=== PATIENT | female | born 1955 | race Caucasian/White ===

== ENCOUNTER 2019-07-19 13:15 | Inpatient (IN) | payer OTHER, SELFPAY ==
[2019-07-19] VITALS (7 sets, daily range): BP systolic 156–198; BP diastolic 78–104; PULSE 92–111; RESP 17–19; TEMP 36.4–37.3; O2SAT 95–98; BMI 37.0
--- NOTE | 2019-07-19 13:37 | ED_ITS ---
Documented by User: DALIA Fields 07/20/19 08:00 HPI - General Adult General: Chief complaint: General Medical Stated complaint: not feeling well Time Seen by Provider: 07/19/19 13:24 Source: patient Mode of arrival: ambulatory Limitations: no limitations History of Present Illness: HPI narrative: Patient is a 63-year-old female who presents to ED today with complaints of lower abdominal and lower back pain over the past 3 to 5 weeks. Patient tells me she has never sought evaluation previously for her discomfort. She states discomfort has gotten to the point where she is having difficulty sleeping as she cannot find a comfortable position. She tells me that she is having intermittent episodes of extreme nausea and vomiting without any distinguishable cause. She also states she is having pain around her left flank area. Patient states her PCP is Dr. Olivares although states she has not seen her in several years. The only medication p atient takes is for her macular degeneration. Patient has not been running fevers. She reports chronic constipation. Denies dysuria, hematuria, change in color or odor. Patient arrives hypertensive at 198/104-patient states her BP is usually normal however patient admits she does not take this regularly. Onset (ago): week(s) Pain Consistency: constant Relieving factors: none Exacerbating factors: none Associated symptoms: Reports nausea and vomiting; Deny chest pain, dyspnea, headache(s), malaise, rash, palpitations or syncope Review of Systems General: Reports: 10 or more systems reviewed and unremarkable except in HPI and below Const: Denies: fever, chills, body aches, fatigue, malaise or night sweats Eyes: Denies: change in vision, blurry vision or photophobia ENMT: Denies: throat pain, enlarged tonsils or painful swallowing Card: Denies: chest pain, palpitations, irregular heart rhythm, edema, swelling of feet/ankles, lightheadedness, syncope, pre-syncope, shortness of breath on exertion or shortness of breath when lying down Resp: Denies: shortness of breath, productive cough, non-productive cough, coughing up blood or chest congestion GI: Reports: abdominal pain, nausea, vomiting, constipation and black tarry stool (reports stools have been darker in color); Denies: change in stool character, blood in stool, white/light colored stool or fatty stool : Reports: flank pain (left); Denies: difficulty urinating, painful urination, urinary frequency, urinary urgency or urinary hesitancy Musc: Reports: back pain; Denies: neck pain, extremity pain, extremity swelling, joint pain or joint swelling Skin/Breast: Denies: rash Neuro: Denies: headache, numbness in extremities, weakness in extremities or changes in sensation PFSH ED PFSH: Medical History (Updated 07/19/19 @ 19:51 by Nuno Vergara MD) Cervical cancer Macular degeneration Surgical History (Updated 07/19/19 @ 17:59 by Carrington Gamble MD) H/O bilateral oophorectomy History of appendectomy History of partial hysterectomy Family History (Updated 07/19/19 @ 18:00 by Carrington Gamble MD) Mother CAD (coronary artery disease) Cancer Lung cancer and uterine cancer Father CAD (coronary artery disease) Social History (Updated 07/19/19 @ 18:01 by Carrington Gamble MD) Smoking and tobacco status: current every day smoker Alcohol intake: never Substance/Drug Use: never Lives independently: Yes Household members: spouse Physical Exam Const: COMMON NORMALS: no apparent distress, oriented x3, no limitations and alert NUTRITIONAL APPEARANCE: obese HENMT: COMMON NORMALS: normocephalic and head/scalp atraumatic HEAD & SCALP: normocephalic and atraumatic Resp: COMMON NORMALS: normal respiratory effort and clear to auscultation b ilaterally AUSCULTATION: clear to auscultation bilaterally Cardio: COMMON NORMALS: regular rate and regular rhythm RATE: regular rate RHYTHM: regular rhythm GI: COMMON NORMALS: normal to inspection, nondistended, normoactive bowel sounds, soft to palpation, no hepatosplenomegaly and no masses PALPATION: Yes soft, Yes tender (very mild throughout lower abdomen) Details: LUQ and Yes no hepatosplenomegaly RECTAL EXAM: heme negative stool : BLADDER/KIDNEY EXAM: Yes CVA tenderness on the left Back/Pelvis: GENERAL BACK: Yes CVA tenderness OTHER: mild tenderness throughout lower back although not easily reproducible Extremity: COMMON NORMALS: normal to inspection Neuro: COMMON NORMALS: oriented x3 SENSORIUM/ORIENTATION: Yes alert Skin: COMMON NORMALS: no rashes or lesions noted GENERAL SKIN EXAM: no rashes or lesions noted Course Consultations: Consultation #1: Dr. Vergara-would be happy to consult on patient and insert bilateral ureter stents if necessary Vital Signs: Vital signs: Vital Signs Temperature 98.2 F 07/20/19 07:55 Pulse Rate 97 07/20/19 07:55 Respiratory Rate 20 H 07/20/19 07:55 Blood Pressure 164/80 07/20/19 07:55 Pulse Oximetry 94 07/20/19 07:55 MDM - General Adult MDM Narrative: Medical decision making narrative: pt is hypertensive, creatinine elevated with no known history of kidney disease (no previous for comparison, GFR is 18, she has bilateral mod hydronephrosis with inflammatory stranding due to her bilateral obstructive uropathy; pt will need to come into the hospital for ureter stenting; spoke to Dr. Vergara who graciously agrees to consult on patient and perform surgery if indicated; Dr. Castillo also evaluated patient and will speak to hospitalist Lab Data: Labs: Lab Results 07/19/19 07/19/19 07/19/19 Range/Units 13:30 13:49 13:49 WBC 12.0 H (4.0-10.0) 10^3/ uL RBC 4.21 (4.1-5.3) 10^6/u L Hgb 11.6 (11.5-15.3) g/dL Hct 37.2 (37.0-47.0) % MCV 88.4 (81-99) fL MCH 27.6 L (28.0-34.0) pg MCHC 31.2 (30.0-36.0) g/dL RDW 12.3 (12.1-15.1) % Plt Count 560 H (130-400) 10^3/c mm MPV 10.2 (7.4-10.4) fL Neut % (Auto) 72.6 % Lymph % (Auto) 17.3 % [place] % (Auto) 8.0 % Eos % (Auto) 1.3 % Baso % (Auto) 0.6 % Neut # (Auto) 8.7 H (1.8-7.7) 10^3/u L Lymph # (Auto) 2.1 (0.8-4.8) 10^3/u L [place] # (Auto) 1.0 H (0.2-0.9) 10^3/u L Eos # (Auto) 0.2 (0.0-0.8) 10^3/u L Baso # (Auto) 0.1 (0.0-0.1) 10^3/u L Nucleated RBC % (a uto) 0 % Nucleated RBCs # 0.0 /100WBC Sodium 139 (136-145) mmol/L Potassium 4.4 (3.5-5.1) mmol/L Chloride 104 (98-107) mmol/L Carbon Dioxide 20 L (22-29) mmol/L Anion Gap 19.4 H (5-19) BUN 22 (8-23) mg/dL Creatinine 2.6 H (0.5-0.9) mg/dL GFR Calculation 18.7 L (90-130) mL/min Glucose 107 (65-115) mg/dL Calculated Osmolal ity 285 (285-295) mOsm/k g Calcium 9.8 (8.5-10.5) mg/dL Total Bilirubin 0.5 (0.15-1.2) mg/dL AST 29 (0-32) U/L ALT 36 H (0-33) U/L Alkaline Phosphata se 427 H (35-105) IU/L Total Protein 8.1 (6.6-8.7) g/dL Albumin 4.1 (3.5-5.2) g/dL Globulin 4.0 (1.3-4.6) g/dL Lipase 25 (13-60) U/L HCG, Qual (Negative) Urine Color Straw (Yellow) Urine Appearance Clear (CLEAR) Urine pH 5 (5-7) Ur Specific Gravit y 1.005 (1.005-1.030) Urine Protein Neg (Negative) Urine Glucose (UA) Norm (Normal) Urine Ketones Negative (Negative) Urine Blood Neg (Negative) Urine Nitrate Negative (Negative) Urine Bilirubin Neg (NEGATIVE) Urine Urobilinogen Norm (Negative) mg/dL Ur Leukocyte Nakia ase Negative (Negative) 07/19/19 Range/Units 13:49 WBC (4.0-10.0) 10^3/ uL RBC (4.1-5.3) 10^6/u L Hgb (11.5-15.3) g/dL Hct (37.0-47.0) % MCV (81-99) fL MCH (28.0-34.0) pg MCHC (30.0-36.0) g/dL RDW (12.1-15.1) % Plt Count (130-400) 10^3/c mm MPV (7.4-10.4) fL Neut % (Auto) % Lymph % (Auto) % [place] % (Auto) % Eos % (Auto) % Baso % (Auto) % Neut # (Auto) (1.8-7.7) 10^3/u L Lymph # (Auto) (0.8-4.8) 10^3/u L [place] # (Auto) (0.2-0.9) 10^3/u L Eos # (Auto) (0.0-0.8) 10^3/u L Baso # (Auto) (0.0-0.1) 10^3/u L Nucleated RBC % (a uto) % Nucleated RBCs # /100WBC Sodium (136-145) mmol/L Potassium (3.5-5.1) mmol/L Chloride (98-107) mmol/L Carbon Dioxide (22-29) mmol/L Anion Gap (5-19) BUN (8-23) mg/dL Creatinine (0.5-0.9) mg/dL GFR Calculation (90-130) mL/min Glucose (65-115) mg/dL Calculated Osmolal ity (285-295) mOsm/k g Calcium (8.5-10.5) mg/dL Total Bilirubin (0.15-1.2) mg/dL AST (0-32) U/L ALT (0-33) U/L Alkaline Phosphata se (35-105) IU/L Total Protein (6.6-8.7) g/dL Albumin (3.5-5.2) g/dL Globulin (1.3-4.6) g/dL Lipase (13-60) U/L HCG, Qual Negative (Negative) Urine Color (Yellow) Urine Appearance (CLEAR) Urine pH (5-7) Ur Specific Gravit y (1.005-1.030) Urine Protein (Negative) Urine Glucose (UA) (Normal) Urine Ketones (Negative) Urine Blood (Negative) Urine Nitrate (Negative) Urine Bilirubin (NEGATIVE) Urine Urobilinogen (Negative) mg/dL Ur Leukocyte Nakia ase (Negative) Imaging Data^: CT Abd/Pel: Radiologist's impression: [facility] [address] [place] [address] CT Scan Report Signed Patient: Emily Bowden Unit #: [id number] : 1955 Age/Sex: 63 / F ADM Date: 07/19/19 Loc: ER Room/Bed: Attending Dr: Ordering Provider/Ordering MD: Miriam Matta Date of Service: 07/19/19 Procedure(s): CT abdomen pelvis wo con [id number] Accession Number(s): [id number] Report Number: [id number] WS: [id number] CT ABDOMEN PELVIS TECHNIQUE: Noncontrast CT of the abdomen and pelvis with coronal and sagittal reformatted images. CLINICAL INFORMATION: L sided abdominal/back pain; nausea/vomiting COMPARISON: None. DLP: 972.[address] scans at [facility] use at least one of these dose optimization techniques: automated exposure control; mA and/or kV adjustment per patient size (includes targeted exams where dose is matched to clinical indication); or iterative reconstruction. FINDINGS: Prior postoperative hysterectomy. Prior appendectomy. Noncontrast liver and gallbladder are normal. Small esophageal hiatal hernia. Noncontrast spleen is normal. Normal noncontrast pancreas. Noncontrast gallbladder is unremarkable. Lung bases are well aerated. Mild rectal constipation. Sigmoid diverticulosis. No evidence of acute diverticulitis. Adrenal glands are normal. Moderate bilateral hydronephrosis with obstructive uropathy. Inflammatory stranding and edema about both kidneys. No obstructing renal or ureteral calculi. Diffuse periaortic inflammation with soft tissue thickening results in obstructive uropathy with involvement of the traversing ureters. Small amount of inflammatory stranding extends just inferior to the aortic bifurcation. No significant lymphadenopathy. No inguinal or pelvic lymphadenopathy. Tiny fat-containing umbilical hernia. No upper abdominal lymphadenopathy. A few slightly prominent but not pathologicall y enlarged periaortic and retroperitoneal lymph nodes. Notified DALIA Fields at 07/19/2019 3:[address]/CT abdomen pelvis wo con [id number] IMPRESSION: 1. Periaortic soft tissue thickening with inflammatory stranding involving the abdominal aorta eccentric to the left. This results in bilateral obstructive uropathy involving the traversing ureters with moderate to advanced bilateral hydronephrosis. 2. Inflammatory stranding and edema about both kidneys with moderate to advanced hydronephrosis. 3. Soft tissue process involving the abdominal aorta with mild periaortic soft tissue thickening. Primary differential consideration is retroperitoneal fibrosis. Lymphoma and aortitis are additional considerations. No aneurysm. 4. A few shoddy periaortic lymph nodes but not pathologically enlarged. 5. Diverticulosis. No evidence of acute diverticulitis. Dictated By: Patrice Bernabe MD Signed By: Patrice Bernabe MD Signed Date/Time: 07/19/19 1544 DD/ 1524 Discharge Plan Discharge Patient Disposition: Admitted As Inpatient Admit Provider: Carringotn Gamble Clinical Impression: Retroperitoneal fibrosis, Acute bilateral obstructive uropathy Condition: Stable Referrals: Gem Olivares MD [Primary Care Provider] - Discharge Date/Time: 07/19/19 17:54 Coding Level of Care Code ED Nib Assembler for Chg Fwd Exam Comprehensive Documented by User: Terrence Castillo DO 07/19/19 17:04 HPI - General Adult General: Chief complaint: General Medical Stated complaint: not feeling well Time Seen by Provider: 07/19/19 13:24 PFSH ED PFSH: Medical History (Updated 07/19/19 @ 19:51 by Nuno Vergara MD) Cervical cancer Macular degeneration Surgical History (Updated 07/19/19 @ 17:59 by Carrington Gamble MD) H/O bilateral oophorectomy History of appendectomy History of partial hysterectomy Family History (Updated 07/19/19 @ 18:00 by Carrington Gamble MD) Mother CAD (coronary artery disease) Cancer Lung cancer and uterine cancer Father CAD (coronary artery disease) Social History (Updated 07/19/19 @ 18:01 by Carrington Gamble MD) Smoking and tobacco status: current every day smoker Alcohol intake: never Substance/Drug Use: never Lives independently: Yes Household members: spouse Course Vital Signs: Vital signs: Vital Signs Temperature 98.2 F 07/20/19 07:55 Pulse Rate 97 07/20/19 07:55 Respiratory Rate 20 H 07/20/19 07:55 Blood Pressure 164/80 07/20/19 07:55 Pulse Oximetry 94 07/20/19 07:55 MDM - General Adult MDM Narrative: Medical decision making narrative: Seen in conjunction with DALIA Fields. Agree with assessment and plan discussed Dr. Person and will admit consult Dr. Vergara Lab Data: Labs: Lab Results 07/19/19 07/19/19 07/19/19 Range/Units 13:30 13:49 13:49 WBC 12.0 H (4.0-10.0) 10^3/ uL RBC 4.21 (4.1-5.3) 10^6/u L Hgb 11.6 (11.5-15.3) g/dL Hct 37.2 (37.0-47.0) % MCV 88.4 (81-99) fL MCH 27.6 L (28.0-34.0) pg MCHC 31.2 (30.0-36.0) g/dL RDW 12.3 (12.1-15.1) % Plt Count 560 H (130-400) 10^3/c mm MPV 10.2 (7.4-10.4) fL Neut % (Auto) 72.6 % Lymph % (Auto) 17.3 % [place] % (Auto) 8.0 % Eos % (Auto) 1.3 % Baso % (Auto) 0.6 % Neut # (Auto) 8.7 H (1.8-7.7) 10^3/u L Lymph # (Auto) 2.1 (0.8-4.8) 10^3/u L [place] # (Auto) 1.0 H (0.2-0.9) 10^3/u L Eos # (Auto) 0.2 (0.0-0.8) 10^3/u L Baso # (Auto) 0.1 (0.0-0.1) 10^3/u L Nucleated RBC % (a uto) 0 % Nucleated RBCs # 0.0 /100WBC Sodium 139 (136-145) mmol/L Potassium 4.4 (3.5-5.1) mmol/L Chloride 104 (98-107) mmol/L Carbon Dioxide 20 L (22-29) mmol/L Anion Gap 19.4 H (5-19) BUN 22 (8-23) mg/dL Creatinine 2.6 H (0.5-0.9) mg/dL GFR Calculation 18.7 L (90-130) mL/min Glucose 107 (65-115) mg/dL Calculated Osmolal ity 285 (285-295) mOsm/k g Calcium 9.8 (8.5-10.5) mg/dL Total Bilirubin 0.5 (0.15-1.2) mg/dL AST 29 (0-32) U/L ALT 36 H (0-33) U/L Alkaline Phosphata se 427 H (35-105) IU/L Total Protein 8.1 (6.6-8.7) g/dL Albumin 4.1 (3.5-5.2) g/dL Globulin 4.0 (1.3-4.6) g/dL Lipase 25 (13-60) U/L HCG, Qual (Negative) Urine Color Straw (Yellow) Urine Appearance Clear (CLEAR) Urine pH 5 (5-7) Ur Specific Gravit y 1.005 (1.005-1.030) Urine Protein Neg (Negative) Urine Glucose (UA) Norm (Normal) Urine Ketones Negative (Negative) Urine Blood Neg (Negative) Urine Nitrate Negative (Negative) Urine Bilirubin Neg (NEGATIVE) Urine Urobilinogen Norm (Negative) mg/dL Ur Leukocyte Nakia ase Negative (Negative) 07/19/19 Range/Units 13:49 WBC (4.0-10.0) 10^3/ uL RBC (4.1-5.3) 10^6/u L Hgb (11.5-15.3) g/dL Hct (37.0-47.0) % MCV (81-99) fL MCH (28.0-34.0) pg MCHC (30.0-36.0) g/dL RDW (12.1-15.1) % Plt Count (130-400) 10^3/c mm MPV (7.4-10.4) fL Neut % (Auto) % Lymph % (Auto) % [place] % (Auto) % Eos % (Auto) % Baso % (Auto) % Neut # (Auto) (1.8-7.7) 10^3/u L Lymph # (Auto) (0.8-4.8) 10^3/u L [place] # (Auto) (0.2-0.9) 10^3/u L Eos # (Auto) (0.0-0.8) 10^3/u L Baso # (Auto) (0.0-0.1) 10^3/u L Nucleated RBC % (a uto) % Nucleated RBCs # /100WBC Sodium (136-145) mmol/L Potassium (3.5-5.1) mmol/L Chloride (98-107) mmol/L Carbon Dioxide (22-29) mmol/L Anion Gap (5-19) BUN (8-23) mg/dL Creatinine (0.5-0.9) mg/dL GFR Calculation (90-130) mL/min Glucose (65-115) mg/dL Calculated Osmolal ity (285-295) mOsm/k g Calcium (8.5-10.5) mg/dL Total Bilirubin (0.15-1.2) mg/dL AST (0-32) U/L ALT (0-33) U/L Alkaline Phosphata se (35-105) IU/L Total Protein (6.6-8.7) g/dL Albumin (3.5-5.2) g/dL Globulin (1.3-4.6) g/dL Lipase (13-60) U/L HCG, Qual Negative (Negative) Urine Color (Yellow) Urine Appearance (CLEAR) Urine pH (5-7) Ur Specific Gravit y (1.005-1.030) Urine Protein (Negative) Urine Glucose (UA) (Normal) Urine Ketones (Negative) Urine Blood (Negative) Urine Nitrate (Negative) Urine Bilirubin (NEGATIVE) Urine Urobilinogen (Negative) mg/dL Ur Leukocyte Nakia ase (Negative) Discharge Plan Discharge Patient Disposition: Admitted As Inpatient Admit Provider: Carrington Gamble Clinical Impression: Retroperitoneal fibrosis, Acute bilateral obstructive uropathy Condition: Stable Referrals: Gem Olivares MD [Primary Care Provider] - Discharge Date/Time: 07/19/19 17:54 Coding Level of Care Code ED Nib Assembler for Chg Fwd Exam Comprehensive
[2019-07-19 13:55] LABS: Add Urine Microscopic? NO
[2019-07-19 13:56] LABS: Basophils # 0.1 10^3/uL (0.0-0.1); Basophils % 0.6 %; Eosinophils # 0.2 10^3/uL (0.0-0.8); Eosinophils % 1.3 %; Hematocrit 37.2 % (37.0-47.0); Hemoglobin 11.6 g/dL (11.5-15.3); Lymphocytes # 2.1 10^3/uL (0.8-4.8); Lymphocytes % 17.3 %; Mean Corpuscular HGB Conc 31.2 g/dL (30.0-36.0); Mean Corpuscular Hemoglobin 27.6 pg (28.0-34.0); Mean Corpuscular Volume 88.4 fL (81-99); Mean Platelet Volume 10.2 fL (7.4-10.4); Neutrophils # 8.7 10^3/uL (1.8-7.7); Neutrophils % 72.6 %; Nucleated Red Blood Cells % 0 %; Platelet Count 560 10^3/cmm (130-400); Red Blood Count 4.21 10^6/uL (4.1-5.3); Red Cell Distribution Width 12.3 % (12.1-15.1)
[2019-07-19 14:01] LABS: Bilirubin Urine Neg (NEGATIVE); Blood Urine Neg (Negative); Glucose Urine UA Norm (Normal); Ketones Urine Negative (Negative); Leukocyte Esterase Urine Negative (Negative); Nitrate Urine Negative (Negative); Protein Urine Neg (Negative); Specific Gravity, Urine 1.005 (1.005-1.030); Urine Appearance Clear (CLEAR); Urine Color Straw (Yellow); Urobilinogen Urine Norm (Negative); pH Urine 5 (5-7)
[2019-07-19 14:06] LABS: HCG, Serum Qual Negative (Negative)
--- NOTE | 2019-07-19 14:06 | CT_ITS ---
WS: [id number] CT ABDOMEN PELVIS TECHNIQUE: Noncontrast CT of the abdomen and pelvis with coronal and sagittal reformatted images. CLINICAL INFORMATION: L sided abdominal/back pain; nausea/vomiting COMPARISON: None. DLP: 972.[address] scans at [facility] use at least one of these dose optimization techniques: automat ed exposure control; mA and/or kV adjustment per patient size (includes targeted exams where dose is matched to clinical indication); or iterative reconstruction. FINDINGS: Prior postoperative hysterectomy. Prior appendectomy. Noncontrast liver and gallbladder are normal. S mall esophageal hiatal hernia. Noncontrast spleen is normal. Normal noncontrast pancreas. Noncontrast gallbladder is unremarkable. Lung bases are well aerated. Mild rectal constipation. Sigmoid diverticulosis. No evidence of acute diverticulitis. Adrenal glands are normal. Moderate bilateral hydronephrosis with obstructive uropathy. Inflammatory stranding and edema about both kidneys. No obstructing renal or ureteral calculi. Diffuse periaortic inflammation with soft tissue thickening results in obstructive uropathy with involvement of the cris ersing ureters. Small amount of inflammatory stranding extends just inferior to the aortic bifurcati on. No significant lymphadenopathy. No inguinal or pelvic lymphadenopathy. Tiny fat-containing umbilical hernia. No upper abdominal lymphadenopathy. A few slightly prominent but not pathologically enlarged periaortic and retroperitoneal lymph nodes. Notified DALIA Fields at 07/19/2019 3:[address]/CT abdomen pelvis wo con [id number] IMPRESSION: 1. Periaortic soft tissue thickening with inflammatory stranding involving the abdominal aorta eccentric to the left. This results in bilateral obstructive u ropathy involving the traversing ureters with moderate to advanced bilateral hy dronephrosis. 2. Inflammatory stranding and edema about both kidneys with moderate to advanc ed hydronephrosis. 3. Soft tissue process involving the abdominal aorta with mild periaortic soft tissue thickening. Primary differential consideration is retroperitoneal fibro sis. Lymphoma and aortitis are additional considerations. No aneurysm. 4. A few shoddy periaortic lymph nodes but not pathologically enlarged. 5. Diverticulosis. No evidence of acute diverticulitis.
[2019-07-19 14:16] LABS: Alanine Aminotransferase 36 U/L (0-33); Albumin Level 4.1 g/dL (3.5-5.2); Alkaline Phosphatase 427 IU/L (35-105); Anion Gap 19.4 (5-19); Aspartate Amino Transferase 29 U/L (0-32); Blood Urea Nitrogen 22 mg/dL (8-23); Calcium 9.8 mg/dL (8.5-10.5); Carbon Dioxide 20 mmol/L (22-29); Chloride 104 mmol/L (98-107); Glomerular Filtration Rate 18.7 mL/min (90-130); Glucose 107 mg/dL (65-115); Lipase 25 U/L (13-60); Osmolality Calculated 285 mOsm/kg (285-295); Potassium 4.4 mmol/L (3.5-5.1); Sodium 139 mmol/L (136-145); Total Bilirubin 0.5 mg/dL (0.15-1.2); Total Protein 8.1 g/dL (6.6-8.7)
[2019-07-19] MEDS: morphine 4 mg/mL SDV 1 mL IVP (15:37)
[2019-07-19] MEDS: ondansetron 2 mg/ML SDV 2 mL 4 MG IVP (15:37)
--- NOTE | 2019-07-19 17:44 | PM.HP ---
Providers/Chief Complaint Admitting Physician: Carrington Gamble MD Primary Care Provider: Gem Olivares MD Chief Complaint: not feeling well History of Present Illness Emily Bowden is a 63 year old female presents to emerge department with gradually worsening bilateral flank pain and lower abdominal pain over the last 4 weeks and especially severe since last night 11 PM. Patient was at times taking naproxen with some relief. She denies any dysuria but reports subjective fevers and chills. She reports frequent episodes of nausea and vomiting for the last several weeks. Reports that pretty much water and Sprite all she can tolerate. She is minimal amount of food as most of the oral intake may end up in nausea and vomiting. She denies shortness of breath or chest pain. Denies any difficulty swallowing. Denies any sore throat or cough. In emergency department CT scan was performed of abdomen and pelvis showing significant bilateral hydronephrosis and inflammatory stranding and edema around kidneys and some retroperitoneal space. Some soft tissue process noted extending to the aorta with potential concern for lymphoma and aortitis. Patient's history is important for cervical cancer for which he underwent partial hysterectomy and then was found to have large ovarian cystic mass and had bilateral oophorectomy. Reports that ovarian cystic mass was benign. Review of Systems Narrative: Except as mentioned above. Const: Denies: fever or chills Eyes: Denies: change in vision (Patient has bilateral macular degeneration with dry on the right and wet on the left) ENMT: Denies: throat pain or change in hearing Card: Denies: chest pain, edema or lightheadedness Resp: Denies: shortness of breath or productive cough GI: Reports: abdominal pain, nausea, vomiting and constipation; Denies: difficulty swallowing, diarrhea, blood in stool or black tarry stool : Denies: difficulty urinating Musc: Denies: joint pain (But does report right hip and back chronic pain which is unchanged.) or joint swelling Skin/Breast: Denies: rash or redness Neuro: Denies: headache or weakness in extremities Psych: Denies: depression or suicidal ideation Endo: Denies: excessive sweating Dread/Lymph: Reports: easy bruising; Denies: easy bleeding or tender lymph nodes All/Imm: Denies: throat swelling Medications/Allergies Home Medications Medication Instructions Recorded Confirmed Last Taken Type PreserVision AREDS-2 1 cap PO DAILY 07/19/19 07/19/19 07/19/19 History Probiotic 1 cap PO DAILY 07/19/19 07/19/19 07/19/19 History ibuprofen 800 mg PO BID PRN 07/19/19 07/19/19 Unknown History ilkynckq-ftc-RH-lycopen-lutein 1 tab PO DAILY 07/19/19 07/19/19 07/19/19 History [[facility] Adults 50 Plus] naproxen sodium 440 mg PO TID PRN 07/19/19 07/19/19 07/19/19 History Allergies Allergy/AdvReac Type Severity Reaction Status Date / Time No Known Allergies Allergy Verified 07/19/19 13:23 PFSH Acute PFSH: Medical History (Updated 07/19/19 @ 18:03 by Carrington Gamble MD) Cervical cancer Macular degeneration Surgical History (Updated 07/19/19 @ 17:59 by Carrington Gamble MD) H/O bilateral oophorectomy History of appendectomy History of partial hysterectomy Family History (Updated 07/19/19 @ 18:00 by Carrington Gamble MD) Mother CAD (coronary artery disease) Cancer Lung cancer and uterine cancer Father CAD (coronary artery disease) Social History (Updated 07/19/19 @ 18:01 by Carrington Gamble MD) Smoking and tobacco status: current every day smoker Alcohol intake: never Substance/Drug Use: never Lives independently: Yes Household members: spouse Vitals/I&O/Wt Last Vital Signs Temp 99.2 F 07/19/19 13:16 Pulse 96 07/19/19 17:00 Resp 18 07/19/19 17:00 BP 170/87 07/19/19 15:50 Pulse Ox 97 07/19/19 17:00 Weight last 48 hrs Weight 86.183 kg Physical Exam Const: COMMON NORMALS: no apparent distress, oriented x3 and alert HENMT: COMMON NORMALS: normocephalic and head/scalp atraumatic HEAD & SCALP: normocephalic and atraumatic Eye: COMMON NORMALS: EOMs intact bilaterally, conjunctivae normal and no scleral icterus CONJUNCTIVA: Yes conjunctivae normal Neck/C-Spine: COMMON NORMALS: no lymphadenopathy and no meningeal signs Lymph: LYMPHATIC: no lymphadenopathy noted Chest: COMMONS NORMALS: palpation of chest normal Resp: COMMON NORMALS: no use of accessory muscles and clear to auscultation bilaterally AUSCULTATION: clear to auscultation bilaterally Cardio: COMMON NORMALS: regular rate, regular rhythm and no murmurs RATE: regular rate RHYTHM: regular rhythm OTHER: No lower extremity edema GI: COMMON NORMALS: soft to palpation PALPATION: Yes soft and Yes tender (Mostly lower abdomen with bilateral CVA tenderness mostly on the left) RECTAL EXAM: deferred : COMMON NORMALS: Yes no CVA tenderness BLADDER/KIDNEY EXAM: Yes no CVA tenderness Back/Pelvis: COMMON NORMALS: no CVA tenderness and thoracic and lumbar spine normal to inspection Extremity: COMMON NORMALS: normal to inspection and normal capillary refill Neuro: COMMON NORMALS: oriented x3 and no focal motor deficits SENSORIUM/ORIENTATION: Yes alert MENINGEAL SIGNS: Yes no meningeal signs Psych: COMMON NORMALS: mental status grossly normal, thought process normal and cooperative THOUGHT PROCESS: normal thought process Skin: COMMON NORMALS: no rashes or lesions noted GENERAL SKIN EXAM: no rashes or lesions noted and ecchymosis (Right arm due to blood pressure cuff.) Data : 07/19/19 13:49 07/19/19 13:49 A&P Assessment and plan (1) High blood pressure: Status: Acute (2) Acute kidney injury: This appears to be postrenal. Patient makes urine Status: Acute (3) Acute bilateral obstructive uropathy: Status: Acute (4) Reactive thrombocytosis: Along with leukocytosis and felt to be reactive secondary to UTI. 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 Vasculitis or malignancy/lymphoma cannot be ruled out. Status: Acute Additional A&P Information PLAN: Awaiting Dr. Vergara's evaluation for ureteral stents placement to relieve hydronephrosis if possible otherwise patient may require percutaneous nephrostomy. Will request radiology to attempt soft tissue mass biopsy mentioned on CT scan. Left message to Dr. Bernabe. Will request initial rheumatological evaluation. Depending on diagnosis patient may require further evaluation by field mechanical meter tester for steroid/immunosuppressant treatment. Check GGT for further evaluation of elevated alk phos. potential metastatic involvement of liver considered as a cause. Will request complete abdominal ultrasound to evaluate for evidence of cholestasis and kidneys/soft tissue if possible. May require MRI. Gentle IV hydration with LR. Discontinue NSAIDs, ibuprofen and naproxen. Start patient on PPI for GI protection. SCDs for DVT prophylaxis for now. Anticoagulation will be avoided due to upcoming procedures. Attestations Medical Necessity Statement*: Patient with retro-peritoneal process resulting in bilateral hydronephrosis and acute kidney injury requires close inpatient monitoring and treatment as well as evaluation. I expect patient will require more than 2 midnights. Coding Level of Care Code Acute Customer Service Security Officer for Chg Fwd Diagnoses High blood pressure I10 Acute kidney injury N17.9 Acute bilateral obstructive uropathy N13.9 Reactive thrombocytosis R79.89 Retroperitoneal fibrosis N13.5
[2019-07-19] MEDS: sennosides 8.6 mg Tablet 17.2 MG PO (19:40)
[2019-07-19] MEDS: lactated ringers 1,000 ML 50 ML IV (19:40)
--- NOTE | 2019-07-19 19:42 | PM.CONSULT ---
Providers/Reason For Consult Consulting Physican/Specialty*: Urology/Vergara Reason for Consult*: Bilateral ureteral obstruction consistent with retroperitoneal fibrosis Attending Physician: Carrington Gamble MD Primary Care Provider: Gem Olivares MD History of Present Illness History of Present Illness Emily Bowden is a 63 year old female who I evaluated for the first time tonight at the request of Dr. Gamble regarding bilateral proximal ureteral obstruction in the presence of changes on CT scan that are consistent with retroperitoneal fibrosis. She complains of approximately 5 weeks of nonspecific abdominal and back pain with nausea and vomiting. Denied changes in her bowel habits other than the nausea and vomiting. Has had a significant decrease in appetite. The back pain was not typical for severe renal colic but reminded her of previous stone episode but to a lesser extent. Presented to the emergency department complaining of increasing symptoms with subjective fever and chills. Lab values showed an elevated creatinine of 2.6 CT scan demonstrated bilateral hydronephrosis with inflammatory change noted around the infrarenal aorta and extending along the retroperitoneum posteriorly. There was no evidence of stones or soft tissue defects within the ureters. There appeared to be a fairly abrupt change in the caliber of the ureters below this inflammatory change. Metabolic work-up is been initiated for possible autoimmune etiologies. A biopsy has also been discussed. I was consulted for further evaluation regarding potential benefit of bilateral ureteral stents as a temporizing palliative measure to relieve ureteral obstruction while the remainder of the work-up and more focused treatments are considered. Review of Systems Const: Reports: fever (No documented fever but subjectively positive), chills, change in appetite, fatigue and malaise Eyes: Denies: change in vision or blurry vision ENMT: Denies: painful swallowing or change in hearing Card: Denies: chest pain, palpitations or leg pain with exertion Resp: Denies: shortness of breath, productive cough or wheezing GI: Reports: abdominal pain, nausea and vomiting; Denies: vomiting blood, constipation or bloating : Reports: flank pain (Not as severe as prior renal colic of related to stone); Denies: difficulty urinating, painful urination, urinary frequency or urinary urgency Musc: Reports: back pain; Denies: neck pain Skin/Breast: Denies: rash, itching or skin tenderness Neuro: Denies: headache, weakness in extremities or confusion Psych: Reports: anxiety (Related to diagnosis and implications only); Denies: depression or memory loss Endo: Denies: excessive urination or excessive thirst Dread/Lymph: Reports: easy bruising; Denies: easy bleeding or enlarged lymph nodes All/Imm: Denies: hives or acute wheezing Meds/Allergies Home Medications and Allergies Home Medications Medication Instructions Recorded Confirmed Type PreserVision AREDS-2 1 cap PO DAILY 07/19/19 07/19/19 History Probiotic 1 cap PO DAILY 07/19/19 07/19/19 History ibuprofen 800 mg PO BID PRN 07/19/19 07/19/19 History mowvgyfw-zka-SZ-lycopen-lutein 1 tab PO DAILY 07/19/19 07/19/19 History [[facility] Adults 50 Plus] naproxen sodium 440 mg PO TID PRN 07/19/19 07/19/19 History Allergies Allergy/AdvReac Type Severity Reaction Status Date / Time No Known Allergies Allergy Verified 07/19/19 13:23 Current Medications Current Medications Generic Name Dose Route Start Last Admin Trade Name Freq PRN Reason Stop Dose Admin Lactated Ringer's 1,000 mls @ 50 mls/hr 07/19/19 18:45 07/19/19 19:40 Lactated Ringers IV 50 mls/hr .Q20H STEPHANIA Administration Senna 17.2 mg 07/19/19 21:00 07/19/19 19:40 Senna Lax PO 17.2 mg BEDTIME STEPHANIA Administration PFSH Acute PFSH: Medical History (Updated 07/19/19 @ 19:51 by Nuno Vergara MD) Cervical cancer Macular degeneration Surgical History (Updated 07/19/19 @ 17:59 by Carrington Gamble MD) H/O bilateral oophorectomy History of appendectomy History of partial hysterectomy Family History (Updated 07/19/19 @ 18:00 by Carrington Gamble MD) Mother CAD (coronary artery disease) Cancer Lung cancer and uterine cancer Father CAD (coronary artery disease) Social History (Updated 07/19/19 @ 18:01 by Carrington Gamble MD) Smoking and tobacco status: current every day smoker Alcohol intake: never Substance/Drug Use: never Lives independently: Yes Household members: spouse Vitals/I&O/Wt Last Vital Signs Temp 98.2 F 04/06/20 18:30 Pulse 96 07/19/19 18:30 Resp 17 07/19/19 18:30 BP 156/78 07/19/19 18:30 Pulse Ox 96 07/19/19 18:30 07/19/19 07/19/19 07/19/19 06:59 14:59 22:59 Output Total 300 / 300 Balance -300 / -300 Weight last 48 hrs Weight 190 lb Physical Exam Const: COMMON NORMALS: no apparent distress, alert and well nourished GENERAL APPEARANCE: well kempt and well developed ORIENTATION/CONSCIOUSNESS: not confused HENMT: COMMON NORMALS: normocephalic and head/scalp atraumatic HEAD & SCALP: normocephalic and atraumatic Eye: COMMON NORMALS: conjunctivae normal and no scleral icterus CONJUNCTIVA: Yes conjunctivae normal Neck/C-Spine: COMMON NORMALS: full ROM GENERAL: Yes normal visual inspection Lymph: LYMPHATIC: no lymphadenopathy noted and no lymphedema noted Resp: COMMON NORMALS: normal respiratory effort and clear to auscultation bilaterally EFFORT & INSPECTION: No labored and No actively coughing AUSCULTATION: clear to auscultation bilaterally Cardio: COMMON NORMALS: regular rate and regular rhythm RATE: regular rate RHYTHM: regular rhythm : BLADDER/KIDNEY EXAM: Yes bladder normal to palpation BIMANUAL EXAM - VAGINA & UTERUS: Yes bladder normal to palpation Extremity: COMMON NORMALS: no clubbing, cyanosis or edema Neuro: COMMON NORMALS: no focal motor deficits SENSORIUM/ORIENTATION: Yes alert Psych: COMMON NORMALS: mental status grossly normal and thought process normal APPEARANCE: Yes grossly normal and Yes well kempt ATTITUDE: Yes calm and Yes engaged THOUGHT PROCESS: normal thought process Skin: COMMON NORMALS: no rashes or lesions noted and no jaundice GENERAL SKIN EXAM: no rashes or lesions noted A&P Assessment and plan (1) Retroperitoneal fibrosis: CT findings suspicious for retroperitoneal fibrosis and patient with bilateral hydronephrosis and proximal ureteral involvement. Status: Acute (2) Acute bilateral obstructive uropathy: Elevated creatinine associated with bilateral ureteral obstruction clinically consistent with retroperitoneal fibrosis PLAN: Cystoscopy, bilateral retrograde ureteral pyelograms, bilateral ureteral stent placement in the morning. Informed consent was obtained after detailed explanation of the rationale for stenting, expectations perioperatively, importance of having stents removed at some point or changed pending outcome of other treatment for retroperitoneal fibrosis. Status: Acute (3) High blood pressure: Status: Acute (4) Acute kidney injury: Status: Acute Coding Level of Care Code Acute Fiction And Nonfiction Prose Writer for Chg Fwd Exam Comprehensive Diagnoses Retroperitoneal fibrosis N13.5 Acute bilateral obstructive uropathy N13.9 High blood pressure I10 Acute kidney injury N17.9
[2019-07-19 20:43] LABS: C Reactive Protein 67.1 mg/L (0.0-4.9); Immunoglobulin IGG 815 mg/dL (700-1600); Lactate Dehydrogenase 243 U/L (135-214)
[2019-07-19 21:36] LABS: Erythrocyte Sedimentation Rate 97 mm/hr (0-15)
[2019-07-19 23:11] LABS: Rapid Plasma Reagin Syphilis Nonreactive (Nonreactive)
[2019-07-19 23:29] LABS: Hepatitis A Antibody IgM. Non-Reactive (Nonreactive); Hepatitis B Core IgM Non-Reactive (Nonreactive); Hepatitis B Surface Antigen. Non-Reactive (Nonreactive); Hepatitis C Virus Antibody Non-Reactive (Nonreactive)
[2019-07-20] VITALS (19 sets, daily range): BP systolic 142–182; BP diastolic 64–95; PULSE 82–112; RESP 16–20; TEMP 36.3–37.6; O2SAT 90–96
--- NOTE | 2019-07-20 | SCC_ITS ---
Procedure Done: 1. Cystoscopy with bilateral retrograde ureteral pyelograms 2. Bilateral ureteral stent placements (8 Telugu by 24 cm double-pigtail without string) 55 seconds of fluoroscopic guidance, for a cumulative dose of 17.46 mGy, was provided to Dr. Vergara by the radiology department. C-arm images of the abdomen were saved for the patient's permanent record. [facility]
[2019-07-20] MEDS: morphine 4 mg/mL SDV 1 mL 2 MG IVP (01:04)
[2019-07-20 01:19] LABS: Procalcitonin 0.09 ng/mL (0-0.5)
[2019-07-20 03:54] LABS: Gamma Glutamyl Transferase 124 U/L (5-36)
[2019-07-20 05:36] LABS: Basophils # 0.1 10^3/uL (0.0-0.1); Basophils % 0.5 %; Eosinophils # 0.2 10^3/uL (0.0-0.8); Eosinophils % 1.8 %; Hematocrit 35.3 % (37.0-47.0); Lymphocytes # 2.1 10^3/uL (0.8-4.8); Lymphocytes % 20.4 %; Mean Corpuscular HGB Conc 31.2 g/dL (30.0-36.0); Mean Corpuscular Hemoglobin 27.6 pg (28.0-34.0); Mean Corpuscular Volume 88.5 fL (81-99); Mean Platelet Volume 10.6 fL (7.4-10.4); Monocytes # 1.1 10^3/uL (0.2-0.9); Monocytes % 10.2 %; Neutrophils # 6.9 10^3/uL (1.8-7.7); Neutrophils % 66.7 %; Nucleated Red Blood Cells % 0 %; Platelet Count 505 10^3/cmm (130-400); Red Blood Count 3.99 10^6/uL (4.1-5.3); Red Cell Distribution Width 12.3 % (12.1-15.1); White Blood Count 10.3 10^3/uL (4.0-10.0)
--- NOTE | 2019-07-20 06:06 | PC.NURSE ---
OFF UNIT Patient taken down stairs for surgery at this time.
[2019-07-20 06:09] LABS: Alanine Aminotransferase 26 U/L (0-33); Albumin Level 3.7 g/dL (3.5-5.2); Alkaline Phosphatase 351 IU/L (35-105); Anion Gap 20.7 (5-19); Aspartate Amino Transferase 19 U/L (0-32); Blood Urea Nitrogen 20 mg/dL (8-23); Calcium 9.7 mg/dL (8.5-10.5); Carbon Dioxide 18 mmol/L (22-29); Chloride 104 mmol/L (98-107); Globulin 3.8 g/dL (1.3-4.6); Glomerular Filtration Rate 17.9 mL/min (90-130); Glucose 103 mg/dL (65-115); Osmolality Calculated 283 mOsm/kg (285-295); Potassium 4.7 mmol/L (3.5-5.1); Sodium 138 mmol/L (136-145); Total Bilirubin 0.5 mg/dL (0.15-1.2); Total Protein 7.5 g/dL (6.6-8.7)
--- NOTE | 2019-07-20 06:20 | P.ANESASSM_ITS ---
Pre-Anesthetic Assessment Pre-Anesthetic Assessment: Height/Weight: Height 1.52 m Weight 86.183 kg Temp Pulse Resp BP Pulse Ox 99.1 F 97 18 176/88 95 07/20/19 06:16 07/20/19 06:16 07/20/19 06:16 07/20/19 06:16 07/20/19 06:16 Proposed Procedure: Operation Date: 07/20/19 07:20 Proposed Procedures p Cystoscopy(Not Applicable) - Nuno Vergara MD s Ureteral Stent Placement(Bilateral) - Nuno Vergara MD Familial anesthetic complications: None Was Beta Rebecca taken within 24 hours: N/A Last intake: yesterday (NPO > 8 hrs) Social: Social History: Tobacco Packs per day: 3 ppd Exam: Pre-Anes Outpt Exam: alert, oriented x 3, clear to auscultation bilaterally and regular rate & rhythm Airway: Cervical ROM: WNL MP: 4 Dentition: Full Pulmonary: Pulmonary: None reported CV/HEM: CV/HEM: None reported : : None reported Comments: retroperitoneal fibrosis w/ b/l ureteral obstruction Hepatic: Hepatic: None reported GI: GI: GERD Metabolic: Metabolic: None reported Musc/skel: Musc/skel: None reported Neuropsych: Neuropsych: None reported Anesthetic Plan: ASA status: 2 Anesthesia: General Risk of > 500 ml blood loss (7ml/kg in children): No Meds/Allergies Current Medications: Current Medications Generic Name Dose Route Start Last Admin Trade Name Freq PRN Reason Stop Dose Admin Lactated Ringer's 1,000 mls @ 50 ml s/hr 07/19/19 18:45 07/19/19 19:40 Lactated Ringers IV 50 mls/hr .Q20H STEPHANIA Administration Morphine Sulfate 2 mg 07/19/19 17:59 07/20/19 01:04 Morphine IVP 2 mg Q4H PRN Administration SEVERE PAIN Senna 17.2 mg 07/19/19 21:00 07/19/19 19:40 Senna Lax PO 17.2 mg BEDTIME STEPHANIA Administration PFSH Anesthesia PFSH: Medical History (Updated 07/19/19 @ 19:51 by Nuno Vergara MD) Cervical cancer Macular degeneration Surgical History (Updated 07/19/19 @ 17:59 by Carrington Gamble MD) H/O bilateral oophorectomy History of appendectomy History of partial hysterectomy Family History (Updated 07/19/19 @ 18:00 by Carrington Gamble MD) Mother CAD (coronary artery disease) Cancer Lung cancer and uterine cancer Father CAD (coronary artery disease) Social History (Updated 07/19/19 @ 18:01 by Carrington Gamble MD) Smoking and tobacco status: current every day smoker Alcohol intake: never Substance/Drug Use: never Lives independently: Yes Household members: spouse Data Anesthesia CBC & Chem 7: 07/19/19 13:49 07/20/19 04:40 Other Labs: Laboratory Results - last 48 hr 07/19/19 07/19/19 07/19/19 13:30 13:49 13:49 WBC 12.0 H RBC 4.21 Hgb 11.6 Hct 37.2 MCV 88.4 MCH 27.6 L MCHC 31.2 RDW 12.3 Plt Count 560 H MPV 10.2 Neut % (Auto) 72.6 Lymph % (Auto) 17.3 [place] % (Auto) 8.0 Eos % (Auto) 1.3 Baso % (Auto) 0.6 Neut # (Auto) 8.7 H Lymph # (Auto) 2.1 [place] # (Auto) 1.0 H Eos # (Auto) 0.2 Baso # (Auto) 0.1 Nucleated RBC % (auto) 0 Nucleated RBCs # 0.0 ESR Sodium 139 Potassium 4.4 Chloride 104 Carbon Dioxide 20 L Anion Gap 19.4 H BUN 22 Creatinine 2.6 H GFR Calculation 18.7 L Glucose 107 Calculated Osmolality 285 Calcium 9.8 Magnesium Total Bilirubin 0.5 GGT AST 29 ALT 36 H Alkaline Phosphatase 427 H Lactate Dehydrogenase C-Reactive Protein Total Protein 8.1 Albumin 4.1 Globulin 4.0 Lipase 25 Procalcitonin HCG, Qual Urine Color Straw Urine Appearance Clear Urine pH 5 Ur Specific [place] 1.005 Urine Protein Neg Urine Glucose (UA) Norm Urine Ketones Negative Urine Blood Neg Urine Nitrate Negative Urine Bilirubin Neg Urine Urobilinogen Norm Ur Leukocyte Esterase Negative IgG RPR Hepatitis A IgM Ab Hep Bs Antigen Hep B Core IgM Ab Hepatitis C Antibody 07/19/19 07/19/19 07/19/19 13:49 19:30 19:30 WBC RBC Hgb Hct MCV MCH MCHC RDW Plt Count MPV Neut % (Auto) Lymph % (Auto) [place] % (Auto) Eos % (Auto) Baso % (Auto) Neut # (Auto) Lymph # (Auto) [place] # (Auto) Eos # (Auto) Baso # (Auto) Nucleated RBC % (auto) Nucleated RBCs # ESR 97 H Sodium Potassium Chloride Carbon Dioxide Anion Gap BUN Creatinine GFR Calculation Glucose Calculated Osmolality Calcium Magnesium Total Bilirubin GGT AST ALT Alkaline Phosphatase Lactate Dehydrogenase 243 H C-Reactive Protein 67.1 H Total Protein Albumin Globulin Lipase Procalcitonin 0.09 HCG, Qual Negative Urine Color Urine Appearance Urine pH Ur Specific [place] Urine Protein Urine Glucose (UA) Urine Ketones Urine Blood Urine Nitrate Urine Bilirubin Urine Urobilinogen Ur Leukocyte Esterase IgG 815 RPR Hepatitis A IgM Ab Hep Bs Antigen Hep B Core IgM Ab Hepatitis C Antibody 07/19/19 07/19/19 07/20/19 19:30 19:30 04:40 WBC RBC Hgb Hct MCV MCH MCHC RDW Plt Count MPV Neut % (Auto) Lymph % (Auto) [place] % (Auto) Eos % (Auto) Baso % (Auto) Neut # (Auto) Lymph # (Auto) [place] # (Auto) Eos # (Auto) Baso # (Auto) Nucleated RBC % (auto) Nucleated RBCs # ESR Sodium 138 Potassium 4.7 Chloride 104 Carbon Dioxide 18 L Anion Gap 20.7 H BUN 20 Creatinine 2.7 H GFR Calculation 17.9 L Glucose 103 Calculated Osmolality 283 L Calcium 9.7 Magnesium 2.0 Total Bilirubin 0.5 GGT 124 H AST 19 ALT 26 Alkaline Phosphatase 351 H Lactate Dehydrogenase C-Reactive Protein Total Protein 7.5 Albumin 3.7 Globulin 3.8 Lipase Procalcitonin HCG, Qual Urine Color Urine Appearance Urine pH Ur Specific [place] Urine Protein Urine Glucose (UA) Urine Ketones Urine Blood Urine Nitrate Urine Bilirubin Urine Urobilinogen Ur Leukocyte Esterase IgG RPR Nonreactive Hepatitis A IgM Ab Non-reactive Hep Bs Antigen Non-reactive Hep B Core IgM Ab Non-reactive Hepatitis C Antibody Non-reactive Micro: Microbiology 07/19/19 19:49 Blood Culture - Preliminary Blood SPECIMEN COLLECTED 07/19/19 19:30 Blood Culture - Preliminary Blood SPECIMEN COLLECTED Cardiac Studies: No Data to Display
[2019-07-20] MEDS: sodium chloride 0.9% 1,000 ML 30 ML IV (06:32)
--- NOTE | 2019-07-20 07:00 | US_ITS ---
WS: [id number] ULTRASOUND ABDOMEN CLINICAL INFORMATION: Elevated alk phos, acute kidney injury COMPARISON: CT abdomen pelvis July 19, 2019 FINDINGS: Liver Size: Normal. Craniocaudal length: 13.0 cm. Echogenicity: Normal. Surface nodularity: None. Mass (size and location): None. Bile ducts Intrahepatic ducts: Normal. Common bile duct diameter: 0.6 cm. Gallbladder Normal. Gallstones: None. Gallbladder sludge: None. Gallbladder wall thickening: None. Pericholecystic fluid: None. Sonographic Catherine sign: Absent. Pancreas Not well visualized Spleen Splenomegaly: None. Craniocaudal length: 13.2 cm. Right kidney with mild right hydronephrosis. Interval placement of double-J ureteral stent Size: 12.5 cm x 5.7 cm x 5.6 cm Left kidney demonstrates mild hydronephrosis. Interval placement of double-J ureteral stent. Size: 11.9 cm x 7.5 cm x 6.2 cm. Abdominal aorta and IVC Visualized portions are normal. Ascites: None. Normal bladder US/US abdomen complete* [id number] IMPRESSION: 1. Liver and gallbladder are normal. Normal common bile duct. 2. Improved bilateral hydronephrosis with interval placement of double-J urete ral stents. 3. Normal bladder
--- NOTE | 2019-07-20 07:07 | PM.OP ---
Operative Report Date of procedure: July 20, 2019 Pre-op Diagnosis: Retroperitoneal fibrosis with bilateral ureteral obstruction Post-op diagnosis: same Procedure Done: 1. Cystoscopy with bilateral retrograde ureteral pyelograms 2. Bilateral ureteral stent placements (8 Canadian by 24 cm double-pigtail without string) Pathology: none sent Surgeon: Jai Anesthesia: General Estimated blood loss: Minimal Complications: None Findings: Normal course and caliber of the ureter to the mid- proximal ureteral level for a distance of approximately 3 inches where there was a demarcation consistent with an extrinsic narrowing and corresponding to CT scan findings. Condition: stable Disposition: PACU Brief History: Mrs. Padilla is a very pleasant 63-year-old white female who I evaluated for the first time last night at the request of the hospitalist service for renal failure related to bilateral ureteral obstruction consistent with retroperitoneal fibrosis based on radiographic/CT scan findings. Preceding symptoms developing over approximately 5-week. Including back pain, vague abdominal pain, nausea and vomiting. Creatinine was elevated. CT scan showed bilateral hydroureteronephrosis to the level of the proximal ureter. At that point and extending distally there were findings of inflammatory changes in the retroperitoneum consistent with retroperitoneal fibrosis. The work-up for the cause is undergoing but I was requested evaluation for possible ureteral stents to relieve obstruction during that work-up process. She is taken to the operating room urgently for bilateral ureteral stent placement. Procedure: After urgent evaluation examination and obtaining of informed consent she was taken to the operating suite on 07/20/2019 where general anesthesia was administered without difficulty after appropriate timeout was performed, SCDs confirmed to be functioning, preoperative antibiotics administered, beta-valentina protocol confirmed. Prepped and draped in the usual sterile fashion in dorsolithotomy position pain careful attention to avoiding pressure points. 21 Canadian cystoscope with 30 degree lens was introduced into the urethral meatus and advanced into the bladder under videoscopy. Bladder was systematically examined without significant pathologic findings. An 8 Canadian cone-tipped catheter was utilized for bilateral retrograde ureteral pyelograms with findings as below: Distal and mid ureters look normal. There was some narrowing in the more proximal ureters consistent with a area of obstruction on CT scan. No other filling defects were identified. The pyelocalyceal systems were dilated Flexible tip guidewire was advanced up the left ureter up into the renal pelvis area and a 8 Canadian by 24 cm double-pigtail stent was advanced over the guidewire through the cystoscope into appropriate position as confirmed via fluoroscopy and cystoscopy. Same procedure was performed on the other side. Stents were confirmed to be functioning, bladder drained, procedure completed. Tolerated the procedure well without complications and was awakened in the operating room and returned to the care of room in stable condition. PLANS: 1. Maintain ureteral stents through completion of work-up. May require long-term indwelling stents, modification to percutaneous nephrostomy, open surgical treatment including intraperitoneal position of the ureters etc. 2. Follow-up to be determined
--- NOTE | 2019-07-20 07:10 | SC_ITS ---
WS: [id number] INTRAOPERATIVE TECHNIQUE: 5 Spot fluoroscopic images for intraoperative purposes. FLUOROSCOPY TIME: 55 seconds CLINICAL INFORMATION: CYSTO RGP COMPARISON: None. FINDINGS: Bilateral double-J stent placement with high-grade narrowing and medial tethering of the ureters. SC/C-arm FL for Urology IMPRESSION: Images obtained for intraoperative purposes.
--- NOTE | 2019-07-20 08:35 | SUR.PHASEI ---
0804 pt aweke alert wants to get up to BR pt feels need to have a BM. resport called pt stable , vss pt to floor per cart 0810 PT ASSISTED UP TOBR, PT ALERT TALKATIVE WITH STAFF,
[2019-07-20 11:05] LABS: Carcinoembryonic Antigen 0.9 ng/mL (0.0-4.7)
[2019-07-20 11:09] LABS: CA 125 10.2 U/mL (0-35); Cancer Antigen 19 9 171.1 U/mL (0-35)
--- NOTE | 2019-07-20 11:26 | P.PN_ITS ---
Subjective Subjective: Interval history: Patient had placement of stents this morning and tolerated procedure well. Discussed with Dr. Bernabe and after evaluation he is unable to perform biopsy. Discussed case with Dr. Del Cid who will see patient on outpatient basis to consider PET CT and also request cancer markers to be ordered and this will be done. Abdominal pain improved. Denies shortness of breath or chest pain. Vitals/I&O/Wt Last Vital Signs Temp 98 F 07/20/19 08:00 Pulse 106 H 07/20/19 08:00 Resp 17 07/20/19 08:00 BP 161/83 07/20/19 08:00 Pulse Ox 90 07/20/19 08:00 07/19/19 07/20/19 07/20/19 22:59 06:59 14:59 Intake Total 545 / 545 0 / 0 Output Total 600 / 600 650 / 1250 900 / 900 Balance -600 / -600 -105 / -705 -900 / -900 Weight last 48 hrs Weight 86.183 kg Physical Exam Const: COMMON NORMALS: no apparent distress and oriented x3 Resp: COMMON NORMALS: normal respiratory effort and clear to auscultation bilaterally AUSCULTATION: clear to auscultation bilaterally Cardio: COMMON NORMALS: regular rate, regular rhythm and S2 normal heart sound RATE: regular rate RHYTHM: regular rhythm HEART SOUNDS: S2 normal OTHER: No lower extremity edema GI: COMMON NORMALS: normal to inspection, nondistended, normoactive bowel sounds, soft to palpation and non-tender PALPATION: Yes soft Neuro: COMMON NORMALS: oriented x3 and no focal motor deficits Data : 07/21/19 04:07 07/21/19 04:07 Micro: Microbiology 07/19/19 19:49 Blood Culture - Preliminary Blood SPECIMEN COLLECTED 07/19/19 19:30 Blood Culture - Preliminary Blood SPECIMEN COLLECTED A&P Assessment and plan (1) High blood pressure: Status: Acute (2) Acute kidney injury: This appears to be postrenal. Patient makes urine Status: Acute (3) Acute bilateral obstructive uropathy: Status: Acute (4) Reactive thrombocytosis: Along with leukocytosis and felt to be reactive secondary to UTI. Status: Acute (5) Retroperitoneal fibrosis: This could be analgesic induced versus idiopathic. Vasculitis or malignancy/lymphoma cannot be ruled out. Status: Acute Additional A&P Information PLAN: Continue current monitoring and treatment. Do not see any need for antibiotics at this point. Discussed case with Dr. Tripathi who will see patient shortly after discharge for further monitoring and treatment. Outpatient follow-up with Dr. Del Cid also be arranged. Continue IV fluids but will increase to 100 mL/h for a day. Hopefully patient's kidney function improves. Attestations Medical Necessity Statement*: Patient with acute kidney injury and retroperitoneal fibrosis requires close inpatient monitoring and treatment until deemed safe for discharge. Coding Level of Care Code Acute Remote Sensing Technician for [facility] Fwd Exam Detailed Diagnoses High blood pressure I10 Acute kidney injury N17.9 Acute bilateral obstructive uropathy N13.9 Reactive thrombocytosis R79.89 Retroperitoneal fibrosis N13.5
[2019-07-20 12:17] LABS: Glucose Point of Care 117 mg/dL (70-110)
[2019-07-20] MEDS: Fleet Enema 133 mL Enema PR (12:54)
[2019-07-20] MEDS: lactated ringers 1,000 ML 30 ML IV ×2 (14:04→20:05)
[2019-07-20] MEDS: HYDROcodone-acetaminophen 5-325 mg Tablet 1 TAB PO (14:27)
[2019-07-21 03:00] VITALS: BP 173/89; PULSE 97; RESP 20; TEMP 36.9; O2SAT 95
[2019-07-21 04:53] LABS: Basophils # 0.1 10^3/uL (0.0-0.1); Basophils % 0.4 %; Eosinophils # 0.1 10^3/uL (0.0-0.8); Eosinophils % 0.4 %; Hematocrit 34.3 % (37.0-47.0); Hemoglobin 10.6 g/dL (11.5-15.3); Lymphocytes # 2.5 10^3/uL (0.8-4.8); Lymphocytes % 22.1 %; Mean Corpuscular HGB Conc 30.9 g/dL (30.0-36.0); Mean Corpuscular Hemoglobin 27.2 pg (28.0-34.0); Mean Corpuscular Volume 88.2 fL (81-99); Mean Platelet Volume 10.3 fL (7.4-10.4); Monocytes % 8.8 %; Neutrophils # 7.7 10^3/uL (1.8-7.7); Nucleated Red Blood Cells % 0 %; Platelet Count 533 10^3/cmm (130-400); Red Blood Count 3.89 10^6/uL (4.1-5.3); Red Cell Distribution Width 12.3 % (12.1-15.1); White Blood Count 11.3 10^3/uL (4.0-10.0)
[2019-07-21 04:57] LABS: Alanine Aminotransferase 23 U/L (0-33); Albumin Level 3.7 g/dL (3.5-5.2); Alkaline Phosphatase 356 IU/L (35-105); Anion Gap 18.4 (5-19); Aspartate Amino Transferase 20 U/L (0-32); Blood Urea Nitrogen 16 mg/dL (8-23); Calcium 10.3 mg/dL (8.5-10.5); Carbon Dioxide 22 mmol/L (22-29); Chloride 106 mmol/L (98-107); Globulin 3.7 g/dL (1.3-4.6); Glomerular Filtration Rate 32.8 mL/min (90-130); Glucose 104 mg/dL (65-115); Magnesium 1.8 mg/dL (1.7-2.3); Osmolality Calculated 291 mOsm/kg (285-295); Potassium 4.4 mmol/L (3.5-5.1); Sodium 142 mmol/L (136-145); Total Bilirubin 0.3 mg/dL (0.15-1.2); Total Protein 7.4 g/dL (6.6-8.7)
[2019-07-21 06:32] LABS: PROTEIN, TOTAL 6.9 g/dL (6.1-8.1)
[2019-07-21 07:00] VITALS: BP 153/85; PULSE 93; RESP 17; TEMP 37.1; O2SAT 93
[2019-07-21 08:00] VITALS: BP 153/85; PULSE 93; RESP 17; TEMP 37.1; O2SAT 96
[2019-07-21 08:17] LABS: Glucose Point of Care 159 mg/dL (70-110)
[2019-07-21] MEDS: pantoprazole DR 40 mg Tablet PO (08:18)
[2019-07-21] MEDS: HYDROcodone-acetaminophen 5-325 mg Tablet 1 TAB PO (08:18)
[2019-07-21 08:21] LABS: CA 27.29 100 U/mL (<38)
--- NOTE | 2019-07-21 09:06 | P.DS_ITS ---
Discharge Providers Date of Admission: 07/19/19 17:03 Date of Discharge: July 21, 2019 Attending Provider at Admission: Carrington Gamble MD Attending Provider at Discharge: Carrington Gamble MD Primary Care Provider: Gem Olivares MD Diagnoses at Discharge Discharge Diagnosis (1) High blood pressure: Status: Acute (2) Acute kidney injury: Status: Acute (3) Acute bilateral obstructive uropathy: Status: Acute (4) Reactive thrombocytosis: Status: Acute (5) Retroperitoneal fibrosis: Status: Acute Reason for Visit Reason for Visit: Reason For Visit: not feeling well Hospital Course Discharge Summary: Patient presented with flank and abdominal pain and diagnosed was with appears to be retroperitoneal fibrosis. Malignancy cannot be completely ruled out but felt unlikely. We have attempted biopsy but unfortunately cannot be performed per radiology. Patient's acute kidney injury secondary to extrinsic ureteral obstruction was relieved by placement of bilateral stents by Dr. Vergara and this morning patient reports feeling much better and wants to the home. She urinated well and her creatinine is down to 1.6. She has good oral intake and denies nausea. She continues to have some abdominal pain and flank pains mostly on the left which overall much improved and patient does not want to take opiate medication unless absolutely necessary. Patient will be given Tylenol and 10 tablets of [place] to use as needed. Case was discussed with Dr. Del Cid who will see patient post discharge for further evaluation to make sure malignancy plays no role. PET/CT could possibly be considered. Discussed case with Dr. Tripathi who will see patient for further evaluation and treatment of retroperitoneal fibrosis. Discussed with Dr. Vergara this morning who wants to see patient in 3 months for stent exchange. Discharge Data Data Completed and Pending: Completed Studies During Hospitalization Category Date Time Status CT abdomen pelvis wo con 35030 Urge nt Cat Scan 07/19/19 14:06 Completed US abdomen comple te* [id number] Routine Ultrasound 07/20/19 07:00 Completed Pending at discharge Category Date Time Status MILLIE Profile Rheum atology Routine Lab 07/19/19 19:30 Received Anti-Neutrophil C utoplasmic AB Rout ine Lab 07/19/19 19:30 Received Blood Culture Rou davey Lab 07/19/19 19:49 Results CMV IGG&IGM Panel Stat Lab 07/19/19 13:49 Received Complete Blood Co unt w/Auto AM LABS Lab 07/22/19 04:00 Ordered Comprehensive Met abolic Panel AM LA BS Lab 07/22/19 04:00 Ordered Magnesium AM LABS Lab 07/22/19 04:00 Ordered Miscellaneous Elena t Routine Lab 07/19/19 19:30 Received Total Protein Avani ctrophoresis Routi ne Lab 07/19/19 19:30 Results Labs from last 24 hours 07/21/19 07/21/19 07/21/19 08:11 04:07 04:07 WBC 11.3 H RBC 3.89 L Hgb 10.6 L Hct 34.3 L MCV 88.2 MCH 27.2 L MCHC 30.9 RDW 12.3 Plt Count 533 H MPV 10.3 Neut % (Auto) 68.0 Lymph % (Auto) 22.1 [place] % (Auto) 8.8 Eos % (Auto) 0.4 Baso % (Auto) 0.4 Neut # (Auto) 7.7 Lymph # (Auto) 2.5 [place] # (Auto) 1.0 H Eos # (Auto) 0.1 Baso # (Auto) 0.1 Nucleated RBC % (a uto) 0 Nucleated RBCs # 0.0 Sodium 142 Potassium 4.4 Chloride 106 Carbon Dioxide 22 Anion Gap 18.4 BUN 16 Creatinine 1.6 H GFR Calculation 32.8 L Glucose 104 POC Glucose 159 Calculated Osmolal ity 291 Calcium 10.3 Magnesium 1.8 Total Bilirubin 0.3 AST 20 ALT 23 Alkaline Phosphata se 356 H Total Protein 7.4 Albumin 3.7 Globulin 3.7 Carcinoembryonic A g CA 19-9 Antigen CA 27-29 CA 125 Antigen 07/20/19 07/20/19 07/20/19 08:58 04:48 04:48 WBC RBC Hgb Hct MCV MCH MCHC RDW Plt Count MPV Neut % (Auto) Lymph % (Auto) [place] % (Auto) Eos % (Auto) Baso % (Auto) Neut # (Auto) Lymph # (Auto) [place] # (Auto) Eos # (Auto) Baso # (Auto) Nucleated RBC % (a uto) Nucleated RBCs # Sodium Potassium Chloride Carbon Dioxide Anion Gap BUN Creatinine GFR Calculation Glucose POC Glucose 117 Calculated Osmolal ity Calcium Magnesium Total Bilirubin AST ALT Alkaline Phosphata se Total Protein Albumin Globulin Carcinoembryonic A g 0.9 CA 19-9 Antigen 171.1 H CA 27-29 CA 125 Antigen 10.2 07/20/19 07/19/19 04:40 19:30 WBC RBC Hgb Hct MCV MCH MCHC RDW Plt Count MPV Neut % (Auto) Lymph % (Auto) [place] % (Auto) Eos % (Auto) Baso % (Auto) Neut # (Auto) Lymph # (Auto) [place] # (Auto) Eos # (Auto) Baso # (Auto) Nucleated RBC % (a uto) Nucleated RBCs # Sodium Potassium Chloride Carbon Dioxide Anion Gap BUN Creatinine GFR Calculation Glucose POC Glucose Calculated Osmolal ity Calcium Magnesium Total Bilirubin AST ALT Alkaline Phosphata se Total Protein 6.9 Albumin Globulin Carcinoembryonic A g CA 19-9 Antigen CA 27-29 100 H CA 125 Antigen Vitals: Last Vital Signs Temp 98.8 F 07/21/19 08:00 Pulse 93 07/21/19 08:00 Resp 17 07/21/19 08:00 BP 153/85 07/21/19 08:00 Pulse Ox 96 07/21/19 08:00 Discharge Plan Discharge Patient Disposition: Home, Self-Care Condition: Stable Prescriptions: New hydrocodone-acetaminophen 5-325 mg Tablet 1 tab PO Q8H PRN (Reason: Moderate Pain) Qty: 10 RF: 0 acetaminophen [Tylenol 8 Hour] 650 mg tablet extended release 650 mg PO Q8H PRN (Reason: pain) Qty: 60 RF: 0 Senna Plus 8.6-50 mg capsule 1 tab-cap PO BID 30 Days Qty: 60 RF: 0 amlodipine 5 mg Tablet 5 mg PO DAILY Qty: 30 RF: 0 Continued Century Adults 50 Plus 0.4-300-250 mg-mcg-mcg Tablet 1 tab PO DAILY RF: 0 PreserVision AREDS-2 1 cap PO DAILY RF: 0 Probiotic 1 cap PO DAILY RF: 0 Discontinued naproxen sodium 220 mg Tablet 440 mg PO TID PRN (Reason: Pain) RF: 0 ibuprofen 200 mg Tablet 800 mg PO BID PRN (Reason: Pain) RF: 0 Discharge Orders: Discharge Order (Routine); Ordered 07/21/19 Ordered By: Carrington Gamble Referrals: Gem Olivares MD [Primary Care Provider] - 4-7 days Nuno Vergara MD [Physician] - 3 months Bolivar Tripathi MD [Physician] - 1-3 days Ranjan Del Cid MD [Hospitalist] - 1-3 days Discharge Diet: Regular Discharge Activity: Resume usual activity Activity Restrictions/Additional Instructions: Please call your doctor or present to emergency department if your condition wo rsens or you develop diarrhea, lightheadedness, fatigue or see blood in your stool or black stool. Please avoid NSAIDs and take Tylenol as needed for pain and [place] for severe pain. Please note that senna/Colace may cause abdominal cramping and is prescribed for constipation which you may develop with treatment of [place] which has opioid in it. Please follow-up with Dr. Del Cid and Dr. Tripathi as we have discussed. Please keep blood pressure and heart rate log 3 times daily to present to primary care physician next visit for medication adjustment. Dr. Vergara wants to follow-up with you in 3 months for stent exchange or sooner if stents malfunction and you develop worsening abdominal/flank pain and this will need to be evaluated. Discharge Attestations Time Spent in Discharge Care*: greater than 30 min Quality Metrics Clinical Quality Measures During this hospital stay, did patient experience: None Coding Level of Care Code Acute Window Treatment Installer for [facility] Fwd Diagnoses High blood pressure I10 Acute kidney injury N17.9 Acute bilateral obstructive uropathy N13.9 Reactive thrombocytosis R79.89 Retroperitoneal fibrosis N13.5
[2019-07-21 09:36] VITALS: BP 153/85; PULSE 93; RESP 17; TEMP 37.1; O2SAT 96
[2019-07-21] MEDS: amlodipine 5 mg Tablet PO (10:07)
[2019-07-21 11:00] VITALS: BP 156/80; PULSE 92; RESP 17; TEMP 36.7; O2SAT 97
[2019-07-21 12:25] LABS: ANA SCREEN, IFA NEGATIVE (NEGATIVE); COMPLEMENT, TOTAL (CH50) >60 U/mL (31-60); THYROID PEROXIDASE ANTIBODIES <1 IU/mL (<9)
[2019-07-21 12:51] LABS: CENTROMERE B ANTIBODY <1.0 NEG AI (<1.0 NEG); COMPLEMENT COMPONENT C3C 196 mg/dL (83-193); COMPLEMENT COMPONENT C4C 43 mg/dL (15-57); JO-1 ANTIBODY <1.0 NEG AI (<1.0 NEG); RNP ANTIBODY <1.0 NEG AI (<1.0 NEG); SCL-70 ANTIBODY <1.0 NEG AI (<1.0 NEG); SJOGREN'S ANTIBODY (SS-A) <1.0 NEG AI (<1.0 NEG); SM ANTIBODY <1.0 NEG AI (<1.0 NEG)
[2019-07-21 13:21] LABS: Cytomegalovirus Antibody (IGG) >10.00 U/mL; Cytomegalovirus Antibody (IGM) <30.00 AU/mL
[2019-07-21 16:06] LABS: ALBUMIN 3.6 g/dL (3.8-4.8); ALPHA 1 GLOBULIN 0.6 g/dL (0.2-0.3); ALPHA 2 GLOBULIN 1.2 g/dL (0.5-0.9); BETA 1 GLOBULIN 0.5 g/dL (0.4-0.6); BETA 2 GLOBULIN 0.4 g/dL (0.2-0.5); GAMMA GLOBULIN 0.7 g/dL (0.8-1.7)
[2019-07-23 00:37] LABS: DNA AB (DS) CRITHIDIA,IFA NEGATIVE (NEGATIVE)
[2019-07-26 11:26] LABS: ANCA Interp Negative (Negative)
== END 2019-07-21 11:13 | disposition home or self-care (01) | DRG 661 ==
LOC: ER 17:18 → MEDSURG 17:44
PROVIDERS: Urology; Admitting Provider Internal Medicine; Emergency Provider Physician Assistant; PCP Family Medicine; Visit Provider Internal Medicine
PROC: 0TJB8ZZ Inspection of Bladder, Via Natural or Artificial Opening Endoscopic (ICD-10-PCS; CPT 52000; principal; 2019-07-20 07:00)
PROC: 0T788DZ Dilation of Bilateral Ureters with Intraluminal Device, Via Natural or Artificial Opening Endoscopic (ICD-10-PCS; CPT 50605; 2019-07-20 07:00)
PROC: 0T788DZ Dilation of Bilateral Ureters with Intraluminal Device, Via Natural or Artificial Opening Endoscopic (ICD-10-PCS; CPT 74420; 2019-07-20 07:00)
DX: N13.6 Pyonephrosis (principal); N13.9 Obstructive and reflux uropathy, unspecified; N17.9 Acute kidney failure, unspecified; N39.0 Urinary tract infection, site not specified; D47.3 Essential (hemorrhagic) thrombocythemia; I10 Essential (primary) hypertension; H35.30 Unspecified macular degeneration; Z85.41 Personal history of malignant neoplasm of cervix uteri; F17.210 Nicotine dependence, cigarettes, uncomplicated
CPT/HCPCS: 12345; 36415; 36416; 74176; 76000; 76700; 80053; 80074; 81003; 82378; 82784; 82787; 82962; 82977; 83516; 83615; 83690; 83735; 84145; 84155; 84165; 84703; 85025; 85651; 86140; 86300; 86301; 86304; 86592; 87040; 94760; 96375; 99283; C2625; J1100; J2270; J2405; J2704; J2710; J3010; J3490; J7030

== ENCOUNTER 2019-07-22 13:48 | Outpatient (CLI) | payer OTHER, SELFPAY ==
--- NOTE | 2019-07-22 17:02 | ONC CON_ITS ---
Dr. Del Cid New Patient Note Patient: Emily Bowden Unit #: [id number]: 1955 Dicatated By: Ranjan Del Cid M.D.Date of Visit: Jul 22, 2019 Onc MED New Patient/Consult Referring Physician: Chief Complaint: Retroperitoneal fibrosis. History of Present Illness: This is a 63 year-old woman who was recently found to have CT evidence of retroperitoneal fibrosis. On 07/19/2019 she was admitted to the hospital after presenting to the emergency room with pain in the lower abdomen/lower back which has been getting worse over a period of 3 to [address] abdomen/pelvis showed periaortic soft tissue thickening with inflammatory stranding involving the abdominal aorta eccentric to the left. It was noted to result in bilateral obstructive uropathy involving the traversing ureters with moderate to advanced bilateral hydronephrosis. There were a few slightly prominent but not pathologically enlarged periaortic and retroperitoneal lymph nodes. Her CBC showed mildly elevated white blood cell count at 12,000 with hemoglobin mildly decreased at 11.6 g and platelet count elevated at 560,000. Sed rate was significantly elevated at 97 mm/hour and the CRP was elevated at 67/4.9 mg/L. BUN and creatinine were elevated at 22 and 2.6 mg/dL. The alkaline phosphatase was significantly elevated at 427/105 IU/L with bilirubin normal at 0.5 mg/dL. Urinalysis was unrevealing. The following day she underwent cystoscopy with placement of bilateral ureteral stents. She was discharged the following day with her creatinine down to 1.6 mg/dL. Tumor markers which have been drawn prior to discharge included elevated CA-19-9 at 171 U/mL and elevated CA-27-29 at 100 U/mL. The CEA was normal at 0.9 ng/mL, and the CA-125 was normal at 10.2 U/mL. Her history is significant in that she had previously undergone partial hysterectomy for cervical cancer. That was done prior to 1994 when she was still living in [place]. Sometime later, estimated at 5832-5177, she underwent bilateral oophorectomy, reportedly for an ovarian mass, but she was told it was benign. She had only short-term hormone replacement therapy following the surgery. She indicates that the pain has improved somewhat following placement of ureteral stents. She does complain that she is tired a lot, and she was exhausted after doing housework yesterday. She says she has not been hungry at all. Her weight is down at least 15 pounds. She has not had fever or night sweats, but she did have some chills. She has had a little bit of sore throat. She does not complain of shortness of breath, cough, or chest pain. She had some nausea yesterday. Her acid reflux has been managed adequately with Prilosec. She has had chronic constipation. She has not been aware of any blood in the stool, but she sometimes has dark stools. She has never had a colonoscopy. Bladder function has improved following the stent placement. She has some arthritis in her spine, which is chronic. She does not complain of headache or dizziness. She has no focal neurologic symptoms. Past Medical History: Her medical history includes degenerative disease of the spine, gastroesophageal reflux disease, hypertension, and macular degeneration. Past Surgical History: Her surgical/procedural history includes appendectomy, bilateral oophorectomy, laser surgery on the left eye, and partial hysterectomy for cervical cancer. Medications: Acetaminophen 1 Tablet (of 650 mg) Oral q 8 hours PRN, amLODIPine Besylate 1 Tablet (of 5 mg) Oral daily, century adults 1 Tablet Oral daily, HYDROcodone-Acetaminophen 1 Tablet (of 5-325 mg) Oral q 8 hours PRN, PreserVision AREDS 1 Capsule Oral daily, Probiotic 1 Capsule Oral daily, Sennosides-Docusate Sodium 1 Capsule (of 8.6-50 mg) Oral b.i.d. Allergies: No Known Allergies. Social History: Ms. Bowden is . She has a history of smoking for 18 years, previously in the range of 2 to 3 packs of cigarettes daily. Since this illness she has cut down to 1/2 pack/day or less. She has just occasional alcohol use. Family History: Father in his 60s of heart attack. Mother of lung cancer. She also was in her 60s. A sister in her early 40s with cancer, but the specific type apparently was not determined. Another sister from homicide. Review Of Symptoms: Constitutional - Her energy level is low and she feels very tired. She is able to do some light work but tires very easily. She has a poor appetite. Her weight is down about 15 lbs. No fever. She had recent chills. No hot flashes or night sweats. ECOG score is 1, Eyes - She has bilateral macular degeneration, ENMT - No hearing loss or tinnitus. No sinus congestion/drainage. No mouth sores. No sore throat or difficulty swallowing, Hematologic/Lymphatic - She bruisies easily, Respiratory - No shortness of breath. No cough. No pleuritic pain or hemoptysis, Cardiovascular - No angina pain. No palpitations, Gastrointestinal - She had some nausea yesterday. No heartburn or acid reflux. No diarrhea. She has chronic constipation, at times she goes 2-3 weeks without having a bowel movement. No blood in the stool. She occasionally has dark stools. She has never had a colonoscopy, Genitourinary (F) - No dysuria or hematuria. She has had urinary frequency and nocturia. Bladder function has improved since she has been in the hospital, Musculoskeletal - She has arthritis in her spine, Integumentary - No skin complications, Neurologic - No headache or dizziness. No numbness/paresthesias or other focal neurologic symptoms, Psychiatric - No anxiety or depression. She sometimes has difficulty sleeping. Vital Signs: Performed on Jul 22, 2019 14:13: 5, 35.78 (HIGH), 1.80 sq.m, 60.00 in, 97 %, 101 /min (HIGH), 20 /min, 139/93 mm(hg), 99.5 F (HIGH), and 183.2 lbs (HIGH). Physical Examination: Constitutional - She has somewhat limited mobility, but she otherwise appears to be in good general health, Eyes - Sclerae nonicteric. Conjunctivae clear, ENMT - No lesions noted in the oral cavity, Neck - No mass or thyromegaly, Hematologic/Lymphatic - No cervical or clavicular adenopathy, Respiratory - Lungs are clear with good air movement bilaterally, Cardiovascular - Heart rhythm is regular. There is a I/ systolic murmur. There is no gallop or rub noted, Breasts - There are no breast masses noted. There is no axillary adenopathy, Abdomen - Soft. There is mild tenderness over the lower abdominal area. Liver and spleen are not enlarged. There is no abdominal mass or ascites noted and there is no inguinal adenopathy, Back/Spine - No spine or CVA tenderness noted, Extremities - No edema. Pedal pulses are palpable bilaterally, Integumentary - No rashes. No suspicious skin lesions noted, Neurologic - No focal neurologic deficits noted. Impression: 1. Patient with CT evidence of retroperitoneal fibrosis and associated bilateral hydronephrosis. The underlying cause has not been determined. 2. She does appear to be showing some clinical improvement following placement of bilateral ureteral stents on 07/20/2019. 3. She has a remote history of cervical cancer. 4. She had undergone bilateral oophorectomy somewhere in the range of 4062-5575, reportedly for benign disease. Her other medical illnesses include: 5. GERD. 6. Degenerative disease of the spine. 7. Macular degeneration. Plan: The CT findings and clinical implications were reviewed with the patient. She has evidence of retroperitoneal fibrosis with associated bilateral hydronephrosis. The underlying cause has not been determined. She has significantly elevated inflammatory markers. Several of the tumor markers are also elevated, but that is a nonspecific finding, particularly in the setting of elevated inflammatory markers and altered renal function. However, it is still suspicious for underlying malignancy. The radiologist has already indicated that the area of involvement is not accessible for biopsy. As such, I would like to see we get insurance approval for a PET/CT to further assess the extent of involvement and to determine if there is another site of involvement which would be more accessible for biopsy. Signed By: Ranjan Del Cid M.D. <<Signature on File>>
== END 2019-07-22 13:49 | disposition home or self-care (01) ==
PROVIDERS: PCP Family Medicine; Visit Provider Internal Medicine Medical Oncology
DX: N13.8 Other obstructive and reflux uropathy (principal); N13.39 Other hydronephrosis; R97.8 Other abnormal tumor markers; R70.0 Elevated erythrocyte sedimentation rate; Z85.41 Personal history of malignant neoplasm of cervix uteri; F17.210 Nicotine dependence, cigarettes, uncomplicated; K21.9 Gastro-esophageal reflux disease without esophagitis; M19.90 Unspecified osteoarthritis, unspecified site; H35.30 Unspecified macular degeneration; Z90.722 Acquired absence of ovaries, bilateral; Z96.0 Presence of urogenital implants
CPT/HCPCS: 99205

== ENCOUNTER 2019-07-26 07:23 | Emergency (ER) | payer OTHER, SELFPAY ==
[2019-07-26 07:27] VITALS: BMI 35.7
--- NOTE | 2019-07-26 07:28 | XR_ITS ---
WS: [id number] PORTABLE CHEST HISTORY: cough/congestion COMPARISON: 08/17/2009 Benign granuloma LEFT lower lobe is stable. No pneumonia. No pleural effusion or pneumothorax. Cardiac size: Normal. Mediastinum/Aorta: Normal mediastinum. No osseous abnormality seen. XR/XR chest 1V portable [id number] IMPRESSION: Unremarkable portable chest.
[2019-07-26 07:31] VITALS: BP 135/75; PULSE 135; RESP 20; TEMP 38.9; O2SAT 95
--- NOTE | 2019-07-26 07:38 | ED_ITS ---
Documented by User: DALIA Fields 07/26/19 13:52 HPI - Fever General: Chief Complaint: Fever Stated Complaint: FEVER Time Seen by Provider: 07/26/19 07:28 Source: patient Mode of arrival: wheelchair Limitations: no limitations History of Present Illness: HPI Narrative: Patient is a very nice 63-year-old female who presents to ED today with a main complaint of fevers along with right flank pain. 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 With this she had bilateral ureter obstruction. Dr. Vergara was consulted who placed bilateral ureter stents. There was a concern for possible malignancy based on CT findings. She was consulted on by Dr. Del Cid while in the hospital. They had originally planned for a site biopsy however the site was non-accessible therefore plan is for patient to eventually have a PET scan for further evaluation. Patient states she was feeling well when she went home from the hospital. She began having right flank pain and feeling feverish last night and states her fevers today were as high as 104. She denies dysuria, difficulty urinating, hematuria, odor to the urine. She is not having any nausea or vomiting. She does admit to constipation but states she is taking pain medications. She reports a very mildly productive cough. She overall feels very weak. MD elicited complaint: fever Pertinent past history: other (recent hospitalization and surgery ) Onset (ago): hour(s) Measured temperature: 104 F Context: recent procedure and recent hospitalization Exacerbating factors: nothing Relieving factors: nothing Associated symptoms: Reports back/flank pain; Deny abdominal pain, chills, chest pain, diarrhea, dysuria, extremity pain, headache(s), nausea or vomiting Treatments prior to arrival fever: none Review of Systems General: Reports: 10 or more systems reviewed and unremarkable except in HPI and below Const: Reports: fever, body aches, fatigue and malaise; Denies: chills Eyes: Denies: change in vision, blurry vision or photophobia ENMT: Denies: throat pain, enlarged tonsils or painful swallowing Card: Denies: chest pain, palpitations, irregular heart rhythm, edema, swelling of feet/ankles, lightheadedness, syncope, pre-syncope, shortness of breath on exertion or shortness of breath when lying down Resp: Reports: productive cough (very mild per patient); Denies: shortness of breath, non-productive cough, pain on inspiration, change in phlegm color, coughing up blood or chest congestion GI: Reports: constipation; Denies: abdominal pain, nausea, vomiting, vomiting blood, heartburn/indigestion, diarrhea, rectal swelling, blood in stool, black tarry stool, mucus in stool, white/light colored stool or fatty stool : Reports: flank pain; Denies: difficulty urinating, painful urination, urinary frequency, urinary urgency, urinary hesitancy, decreased urine ouput, urinary incontinence, blood in urine or pelvic pain Musc: Denies: neck pain, back pain, extremity pain, extremity swelling, joint pain or joint swelling Skin/Breast: Denies: rash Neuro: Denies: headache, numbness in extremities, weakness in extremities or changes in sensation PFSH ED PFSH: Medical History (Updated 07/26/19 @ 12:53 by DALIA Fields) Cervical cancer Macular degeneration Surgical History (Updated 07/26/19 @ 12:53 by DALIA Fields) H/O bilateral oophorectomy History of appendectomy History of partial hysterectomy Family History (Updated 07/19/19 @ 18:00 by Carrington Gamble MD) Mother CAD (coronary artery disease) Cancer Lung cancer and uterine cancer Father CAD (coronary artery disease) Social History (Updated 07/19/19 @ 18:01 by Carrington Gamble MD) Smoking and tobacco status: current every day smoker Alcohol intake: never Lives independently: Yes Household members: spouse Physical Exam Const: COMMON NORMALS: oriented x3, no limitations and alert OTHER: looks like she doesn't feel well HENMT: COMMON NORMALS: normocephalic and head/scalp atraumatic HEAD & SCALP: normocephalic and atraumatic Eye: COMMON NORMALS: PERRL and EOMs intact bilaterally PUPIL: Yes PERRL Neck/C-Spine: COMMON NORMALS: full ROM, no lymphadenopathy and no meningeal signs Resp: COMMON NORMALS: normal respiratory effort and clear to auscultation bilaterally AUSCULTATION: clear to auscultation bilaterally Cardio: COMMON NORMALS: regular rhythm RATE: tachycardic RHYTHM: regular rhythm GI: COMMON NORMALS: normal to inspection, nondistended, normoactive bowel sounds, soft to palpation, non-tender, no hepatosplenomegaly and no masses PALPATION: Yes soft and Yes no hepatosplenomegaly : BLADDER/KIDNEY EXAM: Yes CVA tenderness on the right Back/Pelvis: COMMON NORMALS: thoracic and lumbar spine normal to inspection, no thoracic nor lumbar tenderness and thoraco-lumbar ROM normal GENERAL BACK: Yes CVA tenderness Extremity: COMMON NORMALS: normal to inspection Neuro: CONCHA COMA SCALE: document GCS findings [place] coma scale eye opening: Spontaneous [place] coma scale verbal response: Orientated [place] coma scale motor response: Obey commands [place] coma scale total score: 15 COMMON NORMALS: oriented x3, moves all extremities, no focal motor deficits and no sensory deficits noted SENSORIUM/ORIENTATION: Yes alert MENINGEAL SIGNS: Yes no meningeal signs SPEECH: speech normal Skin: COMMON NORMALS: no rashes or lesions noted GENERAL SKIN EXAM: no rashes or lesions noted Course Consultations: Consultation #1: Dr. Pickens urology; will consult on patient and recommends admitting to hospitalist Consultation #2: Dr. Boswell-hospitalist. Extensively went over pts labs and CXR/CTA imaging. She is speaking to their infectious disease physician and COVID hospitalist. 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 They will assess patient upoin arrival and re-swab her if necessary. Stating admitting physician will be Dr. Browning who is their NON-COVID hospitalist. She requests meropenem for abx coverage (pharmacy does not carry this so imipenem was initiated). Requests all records from recent hospitalization, imaging, and operative reports. Vital Signs: Vital signs: Vital Signs Temperature 98.2 F 07/26/19 13:52 Pulse Rate 136 H 07/26/19 13:52 Respiratory Rate 20 H 07/26/19 13:52 Blood Pressure 145/75 07/26/19 13:52 Pulse Oximetry 96 07/26/19 13:52 MDM - Fever MDM Narrative: Medical decision making narrative: unfortunately Dr. Vergara is on vacation so we do not have urology consult for her admission so we will have to transfer her to [facility] Lab Data: Labs: Lab Results 07/26/19 07/26/19 07/26/19 Range/Units 07:45 07:45 07:45 WBC 14.2 H (4.0-10.0) 10^3/ uL RBC 4.17 (4.1-5.3) 10^6/u L Hgb 11.6 (11.5-15.3) g/dL Hct 36.3 L (37.0-47.0) % MCV 87.1 (81-99) fL MCH 27.8 L (28.0-34.0) pg MCHC 32.0 (30.0-36.0) g/dL RDW 12.5 (12.1-15.1) % Plt Count 367 (130-400) 10^3/c mm MPV 10.1 (7.4-10.4) fL Neut % (Auto) 89.5 % Lymph % (Auto) 5.3 % Schuyler % (Auto) 4.5 % Eos % (Auto) 0.1 % Baso % (Auto) 0.2 % Neut # (Auto) 12.8 H (1.8-7.7) 10^3/u L Lymph # (Auto) 0.8 (0.8-4.8) 10^3/u L Schuyler # (Auto) 0.6 (0.2-0.9) 10^3/u L Eos # (Auto) 0.0 (0.0-0.8) 10^3/u L Baso # (Auto) 0.0 (0.0-0.1) 10^3/u L Nucleated RBC % (a uto) 0 % Nucleated RBCs # 0.0 /100WBC D-Dimer (0-0.59) ug/mIFE U Sodium 134 L (136-145) mmol/L Potassium 3.2 L (3.5-5.1) mmol/L Chloride 97 L (98-107) mmol/L Carbon Dioxide 21 L (22-29) mmol/L Anion Gap 19.2 H (5-19) BUN 19 (8-23) mg/dL Creatinine 1.9 H (0.5-0.9) mg/dL GFR Calculation 26.9 L (90-130) mL/min Glucose 205 H (65-115) mg/dL Calculated Osmolal ity 280 L (285-295) mOsm/k g Lactate 1.3 (0.5-2.2) mmol/L Calcium 9.1 (8.5-10.5) mg/dL Magnesium (1.7-2.3) mg/dL Ferritin (15-150) ng/mL Total Bilirubin 0.8 (0.15-1.2) mg/dL AST 39 H (0-32) U/L ALT 34 H (0-33) U/L Alkaline Phosphata se 393 H (35-105) IU/L Lactate Dehydrogen ase (135-214) U/L Total Protein 7.8 (6.6-8.7) g/dL Albumin 3.7 (3.5-5.2) g/dL Globulin 4.1 (1.3-4.6) g/dL Urine Color (Yellow) Urine Appearance (CLEAR) Urine pH (5-7) Ur Specific Gravit y (1.005-1.030) Urine Protein (Negative) Urine Glucose (UA) (Normal) Urine Ketones (Negative) Urine Blood (Negative) Urine Nitrate (Negative) Urine Bilirubin (NEGATIVE) Urine Urobilinogen (Negative) mg/dL Ur Leukocyte Nakia ase (Negative) Urine RBC (0-2) /hpf Urine WBC (0-5) /hpf Ur Squamous Epith Cells (0-5) Urine Bacteria (NONE) Urine Mucus 07/26/19 07/26/19 07/26/19 Range/Units 07:45 07:45 07:45 WBC (4.0-10.0) 10^3/ uL RBC (4.1-5.3) 10^6/u L Hgb (11.5-15.3) g/dL Hct (37.0-47.0) % MCV (81-99) fL MCH (28.0-34.0) pg MCHC (30.0-36.0) g/dL RDW (12.1-15.1) % Plt Count (130-400) 10^3/c mm MPV (7.4-10.4) fL Neut % (Auto) % Lymph % (Auto) % Schuyler % (Auto) % Eos % (Auto) % Baso % (Auto) % Neut # (Auto) (1.8-7.7) 10^3/u L Lymph # (Auto) (0.8-4.8) 10^3/u L Schuyler # (Auto) (0.2-0.9) 10^3/u L Eos # (Auto) (0.0-0.8) 10^3/u L Baso # (Auto) (0.0-0.1) 10^3/u L Nucleated RBC % (a uto) % Nucleated RBCs # /100WBC D-Dimer 3.11 H (0-0.59) ug/mIFE U Sodium (136-145) mmol/L Potassium (3.5-5.1) mmol/L Chloride (98-107) mmol/L Carbon Dioxide (22-29) mmol/L Anion Gap (5-19) BUN (8-23) mg/dL Creatinine (0.5-0.9) mg/dL GFR Calculation (90-130) mL/min Glucose (65-115) mg/dL Calculated Osmolal ity (285-295) mOsm/k g Lactate (0.5-2.2) mmol/L Calcium (8.5-10.5) mg/dL Magnesium 1.9 (1.7-2.3) mg/dL Ferritin 695 H (15-150) ng/mL Total Bilirubin (0.15-1.2) mg/dL AST (0-32) U/L ALT (0-33) U/L Alkaline Phosphata se (35-105) IU/L Lactate Dehydrogen ase 235 H (135-214) U/L Total Protein (6.6-8.7) g/dL Albumin (3.5-5.2) g/dL Globulin (1.3-4.6) g/dL Urine Color (Yellow) Urine Appearance (CLEAR) Urine pH (5-7) Ur Specific Gravit y (1.005-1.030) Urine Protein (Negative) Urine Glucose (UA) (Normal) Urine Ketones (Negative) Urine Blood (Negative) Urine Nitrate (Negative) Urine Bilirubin (NEGATIVE) Urine Urobilinogen (Negative) mg/dL Ur Leukocyte Nakia ase (Negative) Urine RBC (0-2) /hpf Urine WBC (0-5) /hpf Ur Squamous Epith Cells (0-5) Urine Bacteria (NONE) Urine Mucus 07/26/19 Range/Units 07:50 WBC (4.0-10.0) 10^3/ uL RBC (4.1-5.3) 10^6/u L Hgb (11.5-15.3) g/dL Hct (37.0-47.0) % MCV (81-99) fL MCH (28.0-34.0) pg MCHC (30.0-36.0) g/dL RDW (12.1-15.1) % Plt Count (130-400) 10^3/c mm MPV (7.4-10.4) fL Neut % (Auto) % Lymph % (Auto) % Schuyler % (Auto) % Eos % (Auto) % Baso % (Auto) % Neut # (Auto) (1.8-7.7) 10^3/u L Lymph # (Auto) (0.8-4.8) 10^3/u L Schuyler # (Auto) (0.2-0.9) 10^3/u L Eos # (Auto) (0.0-0.8) 10^3/u L Baso # (Auto) (0.0-0.1) 10^3/u L Nucleated RBC % (a uto) % Nucleated RBCs # /100WBC D-Dimer (0-0.59) ug/mIFE U Sodium (136-145) mmol/L Potassium (3.5-5.1) mmol/L Chloride (98-107) mmol/L Carbon Dioxide (22-29) mmol/L Anion Gap (5-19) BUN (8-23) mg/dL Creatinine (0.5-0.9) mg/dL GFR Calculation (90-130) mL/min Glucose (65-115) mg/dL Calculated Osmolal ity (285-295) mOsm/k g Lactate (0.5-2.2) mmol/L Calcium (8.5-10.5) mg/dL Magnesium (1.7-2.3) mg/dL Ferritin (15-150) ng/mL Total Bilirubin (0.15-1.2) mg/dL AST (0-32) U/L ALT (0-33) U/L Alkaline Phosphata se (35-105) IU/L Lactate Dehydrogen ase (135-214) U/L Total Protein (6.6-8.7) g/dL Albumin (3.5-5.2) g/dL Globulin (1.3-4.6) g/dL Urine Color Straw (Yellow) Urine Appearance Clear (CLEAR) Urine pH 7.0 (5-7) Ur Specific Gravit y 1.005 (1.005-1.030) Urine Protein 1+ H (Negative) Urine Glucose (UA) Norm (Normal) Urine Ketones Negative (Negative) Urine Blood 3+ H (Negative) Urine Nitrate Negative (Negative) Urine Bilirubin Neg (NEGATIVE) Urine Urobilinogen Norm (Negative) mg/dL Ur Leukocyte Nakia ase 2+ H (Negative) Urine RBC 5-10 H (0-2) /hpf Urine WBC 25-40 H (0-5) /hpf Ur Squamous Epith Cells 0-4 H (0-5) Urine Bacteria 1+ H (NONE) Urine Mucus Trace Imaging Data^: CXR: Radiologist's impression: [place] [address] XRay Report Signed Patient: Emily Bowden Unit #: [id number] : [id number] Age/Sex: 63 / F ADM Date: 07/26/19 Loc: ER Room/Bed: Attending Dr: Ordering Provider/Ordering MD: Miriam Matta Date of Service: 07/26/19 Procedure(s): XR chest 1V portable [id number] Accession Number(s): [id number] Report Number: [id number] WS: [id number] PORTABLE CHEST HISTORY: cough/congestion COMPARISON: 08/17/2009 Benign granuloma LEFT lower lobe is stable. No pneumonia. No pleural effusion or pneumothorax. Cardiac size: Normal. Mediastinum/Aorta: Normal mediastinum. No osseous abnormality seen. XR/XR chest 1V portable [id number] IMPRESSION: Unremarkable portable chest. Dictated By: Saima Watson DO Signed By: Saima Watson DO Signed Date/Time: 07/26/19 08 DD/ 0806 US bilateral kidneys: Radiologist's impression: [place] [address] Ultrasound Report Signed Patient: Emily Bowden Unit #: [id number] : 1955 Acct#:[id number] Age/Sex: 63 / F ADM Date: 07/26/19 Loc: ER Room/Bed: Attending Dr: Ordering Provider/Ordering MD: Miriam Matta Date of Service: 07/26/19 Procedure(s): US renal BI* [id number] Accession Number(s): [id number] Report Number: [id number] WS: [id number] RENAL ULTRASOUND HISTORY: R flank pain; recent ureter stent; fevers COMPARISON: 07/20/2019 TECHNIQUE: 2-D and color Doppler imaging of the kidney submitted. Right kidney: 13.5 cm x 7.2 cm x 6.2 cm. [id number] hydronephrosis RIGHT kidney. Hydronephrosis has increased since 07/20/2019. Ureteral stent is not definitely identified and could've been removed since the prior study. Left kidney: 11.9 cm x 5.9 cm x 7.0 cm. Moderate hydronephrosis with progression since the prior study. No ureteral stent is identified. Aorta: Normal. Urinary Bladder: Minimal distention of the urinary bladder. US/US renal BI* [id number] IMPRESSION: 1. Interval progression of hydronephrosis since 07/20/2019. Mild to moderate on the RIGHT and moderate on the LEFT. 2. No ureteral stents are identified on today's exam and could've been removed in the interval. Dictated By: Saima Watson DO Signed By: Saima Watson DO Signed Date/Time: 07/26/19818 DD/ 5 CT angio: Radiologist's impression: [address] [address] [address] Scan Report Signed Patient: Emily Bowden Unit #: [id number] : 1955 Age/Sex: 63 / F ADM Date: 07/26/19 Loc: ER Room/Bed: Attending Dr: Ordering Provider/Ordering MD: Miriam Matta Date of Service: 07/26/19 Procedure(s): CT angio chest PE protcl [id number] Accession Number(s): [id number] Report Number: [id number] WS: [id number] CT CHEST ANGIOGRAPHY WITH REFORMATS HISTORY: elevated d-dimer; recent surgery; fevers/cough TECHNIQUE: Contiguous axial images are obtained through the chest during arterial injection of intravenous contrast. Images are reconstructed to evaluate the pulmonary arteries. MIP imaging also reviewed. All CT scans at [facility] use at least one of these dose optimization techniques: automated exposure control; mA and/or kV adjustment per patient size (includes targeted exams where dose is matched to clinical indication); or iterative reconstruction. CONTRAST: Visipaque 320; 95 mL IV. DLP: 449.94 mGy.cm COMPARISON: None available. Excellent opacification of the pulmonary arteries. No pulmonary embolism or filling defect. Pulmonary artery size is normal. No RIGHT heart strain. Atherosclerosis aorta with no aneurysm. No pericardial or pleural effusion. Mild haziness and granular appearance over both lungs consistent with mild fluid overload. Bilateral linear, subsegmental areas of atelectasis involving the upper lobes and RIGHT middle lobe. No pneumonia. No pleural effusion or pneumothorax. Benign granuloma LEFT lower lobe. No mediastinal or hilar adenopathy. Small hiatal hernia. Edematous enlarged upper pole RIGHT kidney. Corresponds to recent hydronephrosis description. Prior cholecystectomy. Mild thickening of the adrenal glands. No osteoblastic or osteolytic bone disease. CT/CT angio chest PE protcl [id number] IMPRESSION: 1. No pulmonary embolism. 2. Subsegmental, multilobar areas of atelectasis. 3. Mild interstitial edema. 4. Hiatal hernia. 5. Edematous upper pole RIGHT kidney. Corresponds to recently described hydronephrosis. Dictated By: Saima Watson DO Signed By: Saima Watson DO Signed Date/Time: 07/26/19 1035 DD/ 1030 Discharge Plan Discharge Patient Disposition: Xfer Other Clinical Impression: Acute pyelonephritis, History of ureter stent Condition: Stable Referrals: Gem Olivares MD [Primary Care Provider] - Discharge Date/Time: 07/26/19 15:12 Coding Level of Care Code ED Cloak Room Attendant for Chg Fwd Exam Comprehensive Documented by User: Terrence Castillo DO 07/27/19 11:31 HPI - Fever General: Chief Complaint: Fever Stated Complaint: FEVER Time Seen by Provider: 07/26/19 07:28 PFSH ED PFSH: Medical History (Updated 07/26/19 @ 12:53 by DALIA Fields) Cervical cancer Macular degeneration Surgical History (Updated 07/26/19 @ 12:53 by DALIA Fields) H/O bilateral oophorectomy History of appendectomy History of partial hysterectomy Family History (Updated 07/19/19 @ 18:00 by Carrington Gamble MD) Mother CAD (coronary artery disease) Cancer Lung cancer and uterine cancer Father CAD (coronary artery disease) Social History (Updated 07/19/19 @ 18:01 by Carrington Gamble MD) Smoking and tobacco status: current every day smoker Alcohol intake: never Lives independently: Yes Household members: spouse Course Vital Signs: Vital signs: Vital Signs Temperature 98.2 F 07/26/19 13:52 Pulse Rate 136 H 07/26/19 13:52 Respiratory Rate 20 H 07/26/19 13:52 Blood Pressure 145/75 07/26/19 13:52 Pulse Oximetry 96 07/26/19 13:52 MDM - Fever MDM Narrative: Medical decision making narrative: Initially seen by Sigrid. Agree with assessment and plan. Patient be transferred to outside facility due to complications of the ureteral stent infection. Unfortunately we do not have urology available at this time she will need urology service. Lab Data: Labs: Lab Results 07/26/19 07/26/19 07/26/19 Range/Units 07:45 07:45 07:45 WBC 14.2 H (4.0-10.0) 10^3/ uL RBC 4.17 (4.1-5.3) 10^6/u L Hgb 11.6 (11.5-15.3) g/dL Hct 36.3 L (37.0-47.0) % MCV 87.1 (81-99) fL MCH 27.8 L (28.0-34.0) pg MCHC 32.0 (30.0-36.0) g/dL RDW 12.5 (12.1-15.1) % Plt Count 367 (130-400) 10^3/c mm MPV 10.1 (7.4-10.4) fL Neut % (Auto) 89.5 % Lymph % (Auto) 5.3 % Schuyler % (Auto) 4.5 % Eos % (Auto) 0.1 % Baso % (Auto) 0.2 % Neut # (Auto) 12.8 H (1.8-7.7) 10^3/u L Lymph # (Auto) 0.8 (0.8-4.8) 10^3/u L Schuyler # (Auto) 0.6 (0.2-0.9) 10^3/u L Eos # (Auto) 0.0 (0.0-0.8) 10^3/u L Baso # (Auto) 0.0 (0.0-0.1) 10^3/u L Nucleated RBC % (a uto) 0 % Nucleated RBCs # 0.0 /100WBC D-Dimer (0-0.59) ug/mIFE U Sodium 134 L (136-145) mmol/L Potassium 3.2 L (3.5-5.1) mmol/L Chloride 97 L (98-107) mmol/L Carbon Dioxide 21 L (22-29) mmol/L Anion Gap 19.2 H (5-19) BUN 19 (8-23) mg/dL Creatinine 1.9 H (0.5-0.9) mg/dL GFR Calculation 26.9 L (90-130) mL/min Glucose 205 H (65-115) mg/dL Calculated Osmolal ity 280 L (285-295) mOsm/k g Lactate 1.3 (0.5-2.2) mmol/L Calcium 9.1 (8.5-10.5) mg/dL Magnesium (1.7-2.3) mg/dL Ferritin (15-150) ng/mL Total Bilirubin 0.8 (0.15-1.2) mg/dL AST 39 H (0-32) U/L ALT 34 H (0-33) U/L Alkaline Phosphata se 393 H (35-105) IU/L Lactate Dehydrogen ase (135-214) U/L Total Protein 7.8 (6.6-8.7) g/dL Albumin 3.7 (3.5-5.2) g/dL Globulin 4.1 (1.3-4.6) g/dL Urine Color (Yellow) Urine Appearance (CLEAR) Urine pH (5-7) Ur Specific Gravit y (1.005-1.030) Urine Protein (Negative) Urine Glucose (UA) (Normal) Urine Ketones (Negative) Urine Blood (Negative) Urine Nitrate (Negative) Urine Bilirubin (NEGATIVE) Urine Urobilinogen (Negative) mg/dL Ur Leukocyte Nakia ase (Negative) Urine RBC (0-2) /hpf Urine WBC (0-5) /hpf Ur Squamous Epith Cells (0-5) Urine Bacteria (NONE) Urine Mucus 07/26/19 07/26/19 07/26/19 Range/Units 07:45 07:45 07:45 WBC (4.0-10.0) 10^3/ uL RBC (4.1-5.3) 10^6/u L Hgb (11.5-15.3) g/dL Hct (37.0-47.0) % MCV (81-99) fL MCH (28.0-34.0) pg MCHC (30.0-36.0) g/dL RDW (12.1-15.1) % Plt Count (130-400) 10^3/c mm MPV (7.4-10.4) fL Neut % (Auto) % Lymph % (Auto) % Schuyler % (Auto) % Eos % (Auto) % Baso % (Auto) % Neut # (Auto) (1.8-7.7) 10^3/u L Lymph # (Auto) (0.8-4.8) 10^3/u L Schuyler # (Auto) (0.2-0.9) 10^3/u L Eos # (Auto) (0.0-0.8) 10^3/u L Baso # (Auto) (0.0-0.1) 10^3/u L Nucleated RBC % (a uto) % Nucleated RBCs # /100WBC D-Dimer 3.11 H (0-0.59) ug/mIFE U Sodium (136-145) mmol/L Potassium (3.5-5.1) mmol/L Chloride (98-107) mmol/L Carbon Dioxide (22-29) mmol/L Anion Gap (5-19) BUN (8-23) mg/dL Creatinine (0.5-0.9) mg/dL GFR Calculation (90-130) mL/min Glucose (65-115) mg/dL Calculated Osmolal ity (285-295) mOsm/k g Lactate (0.5-2.2) mmol/L Calcium (8.5-10.5) mg/dL Magnesium 1.9 (1.7-2.3) mg/dL Ferritin 695 H (15-150) ng/mL Total Bilirubin (0.15-1.2) mg/dL AST (0-32) U/L ALT (0-33) U/L Alkaline Phosphata se (35-105) IU/L Lactate Dehydrogen ase 235 H (135-214) U/L Total Protein (6.6-8.7) g/dL Albumin (3.5-5.2) g/dL Globulin (1.3-4.6) g/dL Urine Color (Yellow) Urine Appearance (CLEAR) Urine pH (5-7) Ur Specific Gravit y (1.005-1.030) Urine Protein (Negative) Urine Glucose (UA) (Normal) Urine Ketones (Negative) Urine Blood (Negative) Urine Nitrate (Negative) Urine Bilirubin (NEGATIVE) Urine Urobilinogen (Negative) mg/dL Ur Leukocyte Nakia ase (Negative) Urine RBC (0-2) /hpf Urine WBC (0-5) /hpf Ur Squamous Epith Cells (0-5) Urine Bacteria (NONE) Urine Mucus 07/26/19 Range/Units 07:50 WBC (4.0-10.0) 10^3/ uL RBC (4.1-5.3) 10^6/u L Hgb (11.5-15.3) g/dL Hct (37.0-47.0) % MCV (81-99) fL MCH (28.0-34.0) pg MCHC (30.0-36.0) g/dL RDW (12.1-15.1) % Plt Count (130-400) 10^3/c mm MPV (7.4-10.4) fL Neut % (Auto) % Lymph % (Auto) % Schuyler % (Auto) % Eos % (Auto) % Baso % (Auto) % Neut # (Auto) (1.8-7.7) 10^3/u L Lymph # (Auto) (0.8-4.8) 10^3/u L Schuyler # (Auto) (0.2-0.9) 10^3/u L Eos # (Auto) (0.0-0.8) 10^3/u L Baso # (Auto) (0.0-0.1) 10^3/u L Nucleated RBC % (a uto) % Nucleated RBCs # /100WBC D-Dimer (0-0.59) ug/mIFE U Sodium (136-145) mmol/L Potassium (3.5-5.1) mmol/L Chloride (98-107) mmol/L Carbon Dioxide (22-29) mmol/L Anion Gap (5-19) BUN (8-23) mg/dL Creatinine (0.5-0.9) mg/dL GFR Calculation (90-130) mL/min Glucose (65-115) mg/dL Calculated Osmolal ity (285-295) mOsm/k g Lactate (0.5-2.2) mmol/L Calcium (8.5-10.5) mg/dL Magnesium (1.7-2.3) mg/dL Ferritin (15-150) ng/mL Total Bilirubin (0.15-1.2) mg/dL AST (0-32) U/L ALT (0-33) U/L Alkaline Phosphata se (35-105) IU/L Lactate Dehydrogen ase (135-214) U/L Total Protein (6.6-8.7) g/dL Albumin (3.5-5.2) g/dL Globulin (1.3-4.6) g/dL Urine Color Straw (Yellow) Urine Appearance Clear (CLEAR) Urine pH 7.0 (5-7) Ur Specific Gravit y 1.005 (1.005-1.030) Urine Protein 1+ H (Negative) Urine Glucose (UA) Norm (Normal) Urine Ketones Negative (Negative) Urine Blood 3+ H (Negative) Urine Nitrate Negative (Negative) Urine Bilirubin Neg (NEGATIVE) Urine Urobilinogen Norm (Negative) mg/dL Ur Leukocyte Nakia ase 2+ H (Negative) Urine RBC 5-10 H (0-2) /hpf Urine WBC 25-40 H (0-5) /hpf Ur Squamous Epith Cells 0-4 H (0-5) Urine Bacteria 1+ H (NONE) Urine Mucus Trace Discharge Plan Discharge Patient Disposition: Xfer Other Clinical Impression: Acute pyelonephritis, History of ureter stent Condition: Stable Referrals: Gem Olivares MD [Primary Care Provider] - Discharge Date/Time: 07/26/19 15:12 Coding Level of Care Code ED Cloak Room Attendant for Chg Fwd Exam Comprehensive
[2019-07-26 07:39] VITALS: O2SAT 97
--- NOTE | 2019-07-26 07:41 | PC.NURSE ---
portable chest xray at bedside
--- NOTE | 2019-07-26 07:43 | US_ITS ---
WS: [id number] RENAL ULTRASOUND HISTORY: R flank pain; recent ureter stent; fevers COMPARISON: 07/20/2019 TECHNIQUE: 2-D and color Doppler imaging of the kidney submitted. Right kidney: 13.5 cm x 7.2 cm x 6.2 cm. [id number] hydronephrosis RIGHT kidney. Hydronephrosis has increased since 07/20/2019. Ureteral s tent is not definitely identified and could've been removed since the prior study. Left kidney: 11.9 cm x 5.9 cm x 7.0 cm. Moderate hydronephrosis with progression since the prior study. No ureteral stent is identified. Aorta: Normal. Urinary Bladder: Minimal distention of the urinary bladder. US/US renal BI* [id number] IMPRESSION: 1. Interval progression of hydronephrosis since 07/20/2019. Mild to moderate on the RIGHT and moderate on the LEFT. 2. No ureteral stents are identified on today's exam and could've been removed in the interval.
[2019-07-26 07:53] LABS: Basophils % 0.2 %; Eosinophils % 0.1 %; Hematocrit 36.3 % (37.0-47.0); Hemoglobin 11.6 g/dL (11.5-15.3); Lymphocytes # 0.8 10^3/uL (0.8-4.8); Lymphocytes % 5.3 %; Mean Corpuscular Hemoglobin 27.8 pg (28.0-34.0); Mean Corpuscular Volume 87.1 fL (81-99); Mean Platelet Volume 10.1 fL (7.4-10.4); Monocytes # 0.6 10^3/uL (0.2-0.9); Monocytes % 4.5 %; Neutrophils # 12.8 10^3/uL (1.8-7.7); Neutrophils % 89.5 %; Nucleated Red Blood Cells % 0 %; Platelet Count 367 10^3/cmm (130-400); Red Blood Count 4.17 10^6/uL (4.1-5.3); Red Cell Distribution Width 12.5 % (12.1-15.1); White Blood Count 14.2 10^3/uL (4.0-10.0)
--- NOTE | 2019-07-26 08:05 | PC.NURSE ---
portable ultrasound at bedside
[2019-07-26 08:17] LABS: Lactate (Lactic Acid level) 1.3 mmol/L (0.5-2.2)
[2019-07-26] MEDS: sodium chloride 0.9% 1,000 ML 999 ML IV ×2 (08:17→08:52)
[2019-07-26] MEDS: acetaminophen 500 mg Tablet 1000 MG PO (08:17)
[2019-07-26 08:18] LABS: Alanine Aminotransferase 34 U/L (0-33); Albumin Level 3.7 g/dL (3.5-5.2); Alkaline Phosphatase 393 IU/L (35-105); Anion Gap 19.2 (5-19); Aspartate Amino Transferase 39 U/L (0-32); Blood Urea Nitrogen 19 mg/dL (8-23); Calcium 9.1 mg/dL (8.5-10.5); Carbon Dioxide 21 mmol/L (22-29); Chloride 97 mmol/L (98-107); Globulin 4.1 g/dL (1.3-4.6); Glomerular Filtration Rate 26.9 mL/min (90-130); Glucose 205 mg/dL (65-115); Osmolality Calculated 280 mOsm/kg (285-295); Potassium 3.2 mmol/L (3.5-5.1); Sodium 134 mmol/L (136-145); Total Bilirubin 0.8 mg/dL (0.15-1.2); Total Protein 7.8 g/dL (6.6-8.7)
[2019-07-26 08:34] LABS: Bilirubin Urine Neg (NEGATIVE); Blood Urine 3+ (Negative); Glucose Urine UA Norm (Normal); Ketones Urine Negative (Negative); Leukocyte Esterase Urine 2+ (Negative); Nitrate Urine Negative (Negative); Protein Urine 1+ (Negative); Specific Gravity, Urine 1.005 (1.005-1.030); Urine Appearance Clear (CLEAR); Urine Color Straw (Yellow); Urobilinogen Urine Norm (Negative)
[2019-07-26 08:35] LABS: Add Urine Microscopic? YES
[2019-07-26 08:41] LABS: Add Urine Culture? Yes; Bacteria Urine 1+; Mucus Urine TRACE; Squamous Epithelial Cell Urine 0-4 (0-5); WBC Urine 25-40 /hpf (0-5)
[2019-07-26 08:50] LABS: D Dimer 3.11 ug/mIFEU (0-0.59)
[2019-07-26 08:51] LABS: Ferritin 695 ng/mL (15-150); Lactate Dehydrogenase 235 U/L (135-214)
[2019-07-26] MEDS: levofloxacin-dextrose 5 % 750 MG/150 ML PREMIX 100 MG IV (08:52)
[2019-07-26 08:55] VITALS: BP 115/74; PULSE 116; RESP 25; TEMP 38.8; O2SAT 92
[2019-07-26 09:00] LABS: Magnesium 1.9 mg/dL (1.7-2.3)
--- NOTE | 2019-07-26 09:09 | CT_ITS ---
WS: [id number] CT CHEST ANGIOGRAPHY WITH REFORMATS HISTORY: elevated d-dimer; recent surgery; fevers/cough TECHNIQUE: Contiguous axial images are obtained through the chest during arterial injection of intrav enous contrast. Images are reconstructed to evaluate the pulmonary arteries. MIP imaging also reviewe d. All CT scans at [facility] use at least one of these dose optimization techniques: aut omated exposure control; mA and/or kV adjustment per patient size (includes targeted exams where dose is matched to clinical indication); or iterative reconstruction. CONTRAST: Visipaque 320; 95 mL IV. DLP: 449.94 mGy.cm COMPARISON: None available. Excellent opacification of the pulmonary arteries. No pulmonary embolism or filling defect. Pulmonary artery size is normal. No RIGHT heart strain. Atherosclerosis aorta with no aneurysm. No pericardial or pleural effusion. Mild haziness and granular appearance over both lungs consistent with mild fluid overload. Bilateral linear, subsegmental areas of atelectasis involving the upper lobes and RIGHT middle lobe. No pneumon ia. No pleural effusion or pneumothorax. Benign granuloma LEFT lower lobe. No mediastinal or hilar ad enopathy. Small hiatal hernia. Edematous enlarged upper pole RIGHT kidney. Corresponds to recent hydronephrosis description. Prior c holecystectomy. Mild thickening of the adrenal glands. No osteoblastic or osteolytic bone disease. CT/CT angio chest PE protcl [id number] IMPRESSION: 1. No pulmonary embolism. 2. Subsegmental, multilobar areas of atelectasis. 3. Mild interstitial edema. 4. Hiatal hernia. 5. Edematous upper pole RIGHT kidney. Corresponds to recently described hydron ephrosis.
--- NOTE | 2019-07-26 09:39 | PC.NURSE ---
pt tested for COVID 19-Coronavirus. Pt on droplet precautions.
[2019-07-26] MEDS: iodixanol 320 mg/mL 100mL Btl IV (10:13)
[2019-07-26 10:55] VITALS: BP 104/61; PULSE 96; TEMP 36.6; O2SAT 96
[2019-07-26 13:52] VITALS: BP 145/75; PULSE 136; RESP 20; TEMP 36.8; O2SAT 96
--- NOTE | 2019-07-26 15:01 | PC.NURSE ---
REPORT TO [facility] DAVID EMTP TO TRANSFER TO [facility]
== END 2019-07-26 15:12 | disposition other institution (70) ==
PROVIDERS: Emergency Provider Physician Assistant; PCP Family Medicine
DX: N10 Acute pyelonephritis (principal); Z96.0 Presence of urogenital implants; Z85.41 Personal history of malignant neoplasm of cervix uteri; Z90.49 Acquired absence of other specified parts of digestive tract; Z82.49 Family history of ischemic heart disease and other diseases of the circulatory system; F17.210 Nicotine dependence, cigarettes, uncomplicated
CPT/HCPCS: 12345; 36415; 71045; 71275; 76770; 80053; 81001; 82728; 83605; 83615; 83735; 85025; 85378; 87040; 87077; 87086; 87186; 87205; 96360; 96361; 96365; 96366; 96367; 99283; 99285; J0743; J1956; J7030; J7050; Q9967

== ENCOUNTER → 2019-08-23 14:58 | Outpatient (BNVA) | payer OTHER, SELFPAY | PROVIDERS: PCP Family Medicine; Visit Provider Nurse Practitioner Family | DX: N13.9 Obstructive and reflux uropathy, unspecified (principal); R82.81 Pyuria; R50.9 Fever, unspecified; N13.5 Crossing vessel and stricture of ureter without hydronephrosis | CPT/HCPCS: 80053; 81001; 85025; 87077; 87086; 87186 ==

== ENCOUNTER 2019-08-27 09:10 | Outpatient (CLI) | payer OTHER, SELFPAY ==
[2019-08-27 09:30] LABS: Basophils # 0.1 10^3/uL (0.0-0.1); Basophils % 0.7 %; Eosinophils # 0.2 10^3/uL (0.0-0.8); Eosinophils % 2.6 %; Hematocrit 32.5 % (37.0-47.0); Hemoglobin 9.9 g/dL (11.5-15.3); Lymphocytes # 2.8 10^3/uL (0.8-4.8); Mean Corpuscular HGB Conc 30.5 g/dL (30.0-36.0); Mean Corpuscular Hemoglobin 26.9 pg (28.0-34.0); Mean Corpuscular Volume 88.3 fL (81-99); Monocytes # 0.7 10^3/uL (0.2-0.9); Monocytes % 7.6 %; Neutrophils % 56.3 %; Nucleated Red Blood Cells % 0 %; Platelet Count 487 10^3/cmm (130-400); Red Blood Count 3.68 10^6/uL (4.1-5.3); Red Cell Distribution Width 14.7 % (12.1-15.1); White Blood Count 8.8 10^3/uL (4.0-10.0)
== END 2019-08-27 09:11 | disposition home or self-care (01) ==
LOC: LAB 09:15
PROVIDERS: Nurse Practitioner Family; PCP Family Medicine; Visit Provider Urology
DX: N13.9 Obstructive and reflux uropathy, unspecified (principal)
CPT/HCPCS: 81001; 85025

== ENCOUNTER → 2019-09-03 07:58 | Outpatient (BNVA) | payer OTHER, SELFPAY | PROVIDERS: PCP Family Medicine; Visit Provider Urology | DX: R82.81 Pyuria (principal); N13.5 Crossing vessel and stricture of ureter without hydronephrosis; N13.9 Obstructive and reflux uropathy, unspecified | CPT/HCPCS: 81001 ==

== ENCOUNTER → 2019-09-16 12:55 | Outpatient (BNVA) | payer OTHER, SELFPAY | PROVIDERS: PCP Family Medicine; Visit Provider Internal Medicine Rheumatology | DX: F17.210 Nicotine dependence, cigarettes, uncomplicated (principal); N13.5 Crossing vessel and stricture of ureter without hydronephrosis; N39.0 Urinary tract infection, site not specified; Z11.1 Encounter for screening for respiratory tuberculosis; Z79.899 Other long term (current) drug therapy | CPT/HCPCS: 36415; 81001; 82306; 86480; 87077; 87086; 87184; 87385; 99205 ==

== ENCOUNTER 2019-10-21 09:26 | Outpatient (CLI) | payer OTHER, SELFPAY ==
--- NOTE | 2019-10-21 09:31 | CT_ITS ---
WS: [id number] CT ABDOMEN AND PELVIS WITH CONTRAST HISTORY: RETROPERITONEAL FIBROSIS TECHNIQUE: Imaging performed of the abdomen and pelvis with IV contrast. Single phase imaging of the abdomen. Coronal and sagittal reformats are submitted. All CT scans at [facility] use at least one of these dose optimization techniques: automated exposure control; mA and/or kV adjustment per patient size (includes targeted exams where dose is matched to clinical indication); or iterativ e reconstruction. IV CONTRAST: Visipaque 320; 95 mL IV. Oral contrast: No DLP: 767.21 mGy.cm COMPARISON: 07/19/2019 Lower thorax: Focal area of groundglass attenuation at the RIGHT lung base. Benign granuloma LEFT low er lobe. Heart is normal size. Moderate-sized hiatal hernia. No interval change. Liver/biliary system: Too small to characterize hypodensity anterior periphery LEFT lobe of the liver . No bile duct dilatation or mass. Portal vein is normal. Gallbladder: Normal. No gallstones or wall thickening. No pericholecystic fluid. Pancreas: Normal. Spleen: Normal. Adrenal glands: Normal. Right kidney: Double pigtail RIGHT ureteral stent has been placed since the prior CT. Pigtail cathete r is in good position. There is some very mild thickening of the RIGHT renal pelvis. Previously descr ibed hydronephrosis has resolved. Left kidney: Interval placement of a double pigtail LEFT ureteral stent. Catheter in good position. T here is continued soft tissue thickening and dilatation of the renal pelvis and proximal ureter. Diam eter of the renal pelvis is 2.7 cm. Not significantly improved. LEFT ureter returns to normal caliber at the L4 level. Aorta: Mild atherosclerosis. No aneurysm. Previously described inflammatory soft tissue surrounding t he aorta has significantly improved. There is some very mild thickening remaining at the bifurcation with indistinctness of the wall. Lymphadenopathy: Shoddy retroperitoneal lymph nodes with the largest measuring 7 mm on the LEFT. No e nlarged lymph nodes. Free fluid: None. GI tract: Diffuse mild constipation. The appendix has been removed. No obstruction. A few scattered d iverticula throughout the distal colon with no adjacent inflammation. Abdominal wall: Unremarkable abdominal wall. No hernia. Pelvis: Normally distended urinary bladder. Bilateral distal coils ureteral stents are present. No ad enopathy or free fluid in the pelvis. Bones: Unremarkable. CT/CT abdomen pelvis w con* [id number] IMPRESSION: 1. Interval placement of bilateral double pigtail ureteral stents since 07/19/19 20. 2. Resolved RIGHT hydronephrosis with very minimal persistent soft tissue thic kening at the RIGHT renal pelvis. 3. Persistent LEFT moderate hydronephrosis and proximal ureteral dilatation. 4. Near complete resolution of the previously described retroperitoneal fibros is surrounding the aorta. 5. Moderate hiatal hernia. 6. No progression of retroperitoneal lymph nodes.
[2019-10-21 09:58] LABS: Basophils # 0.1 10^3/uL (0.0-0.1); Basophils % 0.6 %; Eosinophils # 0.2 10^3/uL (0.0-0.8); Eosinophils % 2.1 %; Hematocrit 42.8 % (37.0-47.0); Hemoglobin 13.6 g/dL (11.5-15.3); Lymphocytes # 2.3 10^3/uL (0.8-4.8); Lymphocytes % 20.5 %; Mean Corpuscular HGB Conc 31.8 g/dL (30.0-36.0); Mean Corpuscular Hemoglobin 28.9 pg (28.0-34.0); Mean Corpuscular Volume 90.9 fL (81-99); Mean Platelet Volume 10.1 fL (7.4-10.4); Monocytes # 0.7 10^3/uL (0.2-0.9); Monocytes % 6.6 %; Neutrophils # 7.67 10^3/uL (1.8-7.7); Neutrophils % 69.8 %; Nucleated Red Blood Cells % 0 %; Platelet Count 399 10^3/cmm (130-400); Red Blood Count 4.71 10^6/uL (4.1-5.3); Red Cell Distribution Width 13.9 % (12.1-15.1)
[2019-10-21 10:27] LABS: Cancer Antigen 19 9 434.5 U/mL (0-35); Carcinoembryonic Antigen 2.9 ng/mL (0.0-4.7)
[2019-10-21 10:38] LABS: Alanine Aminotransferase 21 U/L (0-33); Albumin Level 4.5 g/dL (3.5-5.2); Alkaline Phosphatase 146 IU/L (35-105); Anion Gap 17.4 (5-19); Aspartate Amino Transferase 21 U/L (0-32); Blood Urea Nitrogen 8 mg/dL (8-23); Calcium 10.2 mg/dL (8.5-10.5); Carbon Dioxide 25 mmol/L (22-29); Chloride 100 mmol/L (98-107); Globulin 3.2 g/dL (1.3-4.6); Glomerular Filtration Rate 45.7 mL/min (90-130); Glucose 102 mg/dL (65-115); Lactate Dehydrogenase 190 U/L (135-214); Osmolality Calculated 282 mOsm/kg (285-295); Potassium 4.4 mmol/L (3.5-5.1); Sodium 138 mmol/L (136-145); Total Bilirubin 0.3 mg/dL (0.15-1.2); Total Protein 7.7 g/dL (6.6-8.7)
[2019-10-21 10:58] LABS: Erythrocyte Sedimentation Rate 32 mm/hr (0-15)
[2019-10-21] MEDS: iohexol 300 mg/mL 50 mL Btl PO (11:21)
[2019-10-21] MEDS: iodixanol 320 mg/mL 100mL Btl IV (11:22)
[2019-10-22 08:45] LABS: CA 27.29 68 U/mL (<38)
== END 2019-10-21 09:27 | disposition home or self-care (01) ==
LOC: RAD 09:27
PROVIDERS: PCP Family Medicine; Visit Provider Internal Medicine Medical Oncology
DX: N13.5 Crossing vessel and stricture of ureter without hydronephrosis (principal); Z96.0 Presence of urogenital implants; N13.30 Unspecified hydronephrosis; K44.9 Diaphragmatic hernia without obstruction or gangrene
CPT/HCPCS: 74177; 80053; 82378; 83615; 85025; 85651; 86300; 86301

== ENCOUNTER 2019-10-25 08:54 | Outpatient (CLI) | payer OTHER, SELFPAY ==
--- NOTE | 2019-10-29 07:38 | ONC FU_ITS ---
Dr. Del Cid Patient Follow-Up Note Patient: Emily Bowden Unit #: [id number]: 1955 Dicatated By: Ranjan Del Cid M.D.Date of Visit:Oct 25, 2019 Onc Med Follow-up/Prog Note Chief Complaint: Retroperitoneal fibrosis. History of Present Illness: This is a 63 year-old woman who was recently found to have CT evidence of retroperitoneal fibrosis. On 07/19/2019 she was admitted to the hospital after presenting to the emergency room with pain in the lower abdomen/lower back which has been getting worse over a period of 3 to [address] abdomen/pelvis showed periaortic soft tissue thickening with inflammatory stranding involving the abdominal aorta eccentric to the left. It was noted to result in bilateral obstructive uropathy involving the traversing ureters with moderate to advanced bilateral hydronephrosis. There were a few slightly prominent but not pathologically enlarged periaortic and retroperitoneal lymph nodes. Her CBC showed mildly elevated white blood cell count at 12,000 with hemoglobin mildly decreased at 11.6 g and platelet count elevated at 560,000. Sed rate was significantly elevated at 97 mm/hour and the CRP was elevated at 67/4.9 mg/L. BUN and creatinine were elevated at 22 and 2.6 mg/dL. The alkaline phosphatase was significantly elevated at 427/105 IU/L with bilirubin normal at 0.5 mg/dL. Urinalysis was unrevealing. The following day she underwent cystoscopy with placement of bilateral ureteral stents. She was discharged the following day with her creatinine down to 1.6 mg/dL. Tumor markers which have been drawn prior to discharge included elevated CA-19-9 at 171 U/mL and elevated CA-27-29 at 100 U/mL. The CEA was normal at 0.9 ng/mL, and the CA-125 was normal at 10.2 U/mL. Her history is significant in that she had previously undergone partial hysterectomy for cervical cancer. That was done prior to 1994 when she was still living in [place]. Sometime later, estimated at [id number], she underwent bilateral oophorectomy, reportedly for an ovarian mass, but she was told it was benign. She had only short-term hormone replacement therapy following the surgery. I had seen her initially on 07/22/2019. With the elevated tumor markers, I was suspicious about the possibility of underlying malignancy. She then had further evaluation with PET/CT on 08/07/2019. There was noted to be inflammatory FDG uptake in the retroperitoneal fibrosis, but it did not appear to be suspicious for malignancy. With that finding, she was followed on observation/expectant management. Her other medical illnesses have been limited to GERD, degenerative disease of the spine, and macular degeneration. She has a history of smoking previously up to 2 to 3 packs of cigarettes daily. She has cut down to about 1 pack/day. She is seen for a follow-up visit. She complains that she gets tired easily. She has limited activity, as she gets short of breath walking to the mailbox. She is able to do some light work. ECOG score is 1. Her appetite varies. Her weight is down about 10 pounds. She does not have fever or night sweats, but she did get hot and sweaty 1 day. She has quite a bit of cough in the morning. She does not complain of chest pain. She has acid reflux all the time despite taking omeprazole. She has ongoing problems with constipation, which she is managing with MiraLAX. She occasionally has blood in the urine, and she recently had a strep urinary tract infection. She is seeing Dr. Vergara. She has no significant joint or bone pain. She does not complain of headache. She sometimes has dizziness. She says her arms go to sleep easily. She has no other focal neurologic symptoms. Medications: Acetaminophen 1 Tablet (of 650 mg) Oral q 8 hours PRN, amLODIPine Besylate 1 Tablet (of 5 mg) Oral daily, century adults 1 Tablet Oral daily, HYDROcodone-Acetaminophen 1 Tablet (of 5-325 mg) Oral q 8 hours PRN, PreserVision AREDS 1 Capsule Oral daily, Probiotic 1 Capsule Oral daily, Sennosides-Docusate Sodium 1 Capsule (of 8.6-50 mg) Oral b.i.d. Allergies: No Known Allergies. Review of Systems: Constitutional - She feels okay, but her energy is low. She does some light work. Her appetite is good, but her weight is down about 10 pounds. No fever, night sweats, or hot flashes. ECOG score is 1, ENMT - No sinus congestion/drainage. No mouth sores. No sore throat or difficulty swallowing, Hematologic/Lymphatic - No abnormal bruising or bleeding, Respiratory - She has shortness of breath with activity. She has a productive cough. No pleuritic pain or hemoptysis, Cardiovascular - No angina pain. No palpitations, Gastrointestinal - No nausea or vomiting. Her heartburn is poorly managed with omeprazole. No diarrhea. She is using Miralax constipation. No blood in the stool or black stools, Genitourinary (F) - No dysuria. She has hematuria. No urinary frequency. No urgency or incontinence. She reports that she was told she had a strep infection in her urine. Dr. Vergara is managing this, Musculoskeletal - No joint or bone pain, Integumentary - No skin complications, Neurologic - No headache or dizziness. No numbness or tingling, but her hands go to sleep easily. No other focal neurologic symptoms, Psychiatric - No anxiety or depression. She does not sleep well. Vital Signs: Blood pressure 131/72, pulse 89, respirations 20, temp 98.4 degrees, oxygen saturation 98%. Weight 173 pounds. Physical Examination: Constitutional - She does not appear acutely ill, Eyes - Sclerae nonicteric. Conjunctivae clear, ENMT - No lesions noted in the oral cavity, Hematologic/Lymphatic - There is a palpable nodule at the base of the neck posteriorly on the right side. There is no other cervical, clavicular, or axillary adenopathy noted, Respiratory - Lungs are clear with good air movement bilaterally, Cardiovascular - Heart rhythm is regular. There is no murmur, gallop, or rub noted, Abdomen - Soft. Liver and spleen are not enlarged. There is no abdominal mass or ascites noted and there is no inguinal adenopathy, Extremities - No edema, Integumentary - No rashes. No suspicious skin lesions noted, Neurologic - No focal neurologic deficits noted. Lab/Imaging: Test performed on Oct 21, 2019 09:45 LDH (Total) 190 U/L Sodium 138 mmol/L Potassium 4.4 mmol/L Chloride 100 mmol/L CO2 25 mmol/L Anion Gap 17.4 BUN 8 mg/dL Creatinine 1.2 mg/dL Cr Clearance (Est) 64.5800 mL/min eGFR 45.7 mL/min Glucose 102 mg/dL Calcium 10.2 mg/dL Protein, Total 7.7 g/dL Albumin 4.5 g/dL Globulin 3.2 g/dL Bilirubin, Total 0.3 mg/dL ALT (SGPT) 21 U/L AST (SGOT) 21 U/L Alkaline Phosphatase 146 IU/L ESR (Sed Rate) 32 mm/hr WBC 11.0 10 3/uL RBC 4.71 10 6/uL HGB 13.6 g/dL HCT 42.8 % MCV 90.9 fL MCH 28.9 pg MCHC 31.8 g/dL RDW 13.9 % Platelet Count 399 10 3/cmm MPV 10.1 fL Neutrophils 7.67 10 3/uL Lymphocytes 2.3 10 3/uL Monocytes 0.7 10 3/uL Eosinophils 0.2 10 3/uL Basophils 0.1 10 3/uL Neutrophil % 69.8 % Lymphocyte % 20.5 % Monocyte % 6.6 % Eosinophil % 2.1 % Basophils % 0.6 % NRBC % 0 % CA 19-9 434.5 U/mL CEA 2.9 ng/mL Impression: 1. Patient with CT evidence of retroperitoneal fibrosis and associated bilateral hydronephrosis. The underlying cause has not been determined. 2. She had clinical improvement following placement of bilateral ureteral stents on 07/20/2019. 3. She has a remote history of cervical cancer. 4. She had undergone bilateral oophorectomy somewhere in the range of 4376-4966, reportedly for benign disease. Her other medical illnesses include: 5. GERD. 6. Degenerative disease of the spine. 7. Macular degeneration. Her PET/CT on 08/07/2019 showed inflammatory uptake associated with the retroperitoneal fibrosis. The findings were not suspicious for malignancy, and she has been followed on observation/expectant management. Her repeat CT abdomen/pelvis on 10/21/2019 reported near complete resolution of previously described retroperitoneal fibrosis surrounding the aorta. There was interval placement of ureteral stents with resolution of right hydronephrosis, but with persistent left moderate hydronephrosis and proximal ureteral dilatation. Her repeat tumor markers show significant further elevation of the CA-19-9 level, now to 434 U/mL. In spite of the CT findings, this is highly suspicious for underlying malignancy. Plan: I will review the CT with the radiologist, as the rising CA-19-9 level does not correlate with the improvement noted on the CT. In the meantime, I will change her PPI to pantoprazole. Signed By: Ranjan Del Cid M.D. <<Signature on File>>
== END 2019-10-25 08:55 | disposition home or self-care (01) ==
LOC: ONCMED 08:58
PROVIDERS: PCP Family Medicine; Visit Provider Internal Medicine Medical Oncology
DX: R97.8 Other abnormal tumor markers (principal); N13.5 Crossing vessel and stricture of ureter without hydronephrosis; Z85.41 Personal history of malignant neoplasm of cervix uteri; Z90.710 Acquired absence of both cervix and uterus; K21.9 Gastro-esophageal reflux disease without esophagitis; M19.90 Unspecified osteoarthritis, unspecified site; H35.30 Unspecified macular degeneration; F17.210 Nicotine dependence, cigarettes, uncomplicated; Z79.891 Long term (current) use of opiate analgesic; N13.30 Unspecified hydronephrosis
CPT/HCPCS: 99214

== ENCOUNTER 2019-10-26 07:55 | Outpatient (CLI) | payer OTHER, SELFPAY ==
--- NOTE | 2019-10-26 08:00 | XRR_ITS ---
PROCEDURE INFORMATION: Exam: XR Abdomen, 1 View Exam date and time: 10/26/2019 8:06 AM Age: 63 years old Clinical indication: Condition or disease; Kidney or ureter condition; Calculus (stone) in kidney; Prior surgery; Surgery date: 1-6 months; Surgery type: Bilateral stent placement. Appy. Ovaries removed; Patient HX: Bilateral obstructive uropathy; Additional info: Bilateral uropathy TECHNIQUE: Imaging protocol: XR of the abdomen. Views: Frontal supine view of the abdomen. 1 View. COMPARISON: CT abdomen pelvis w con* [id number] 10/21/2019 11:14 AM FINDINGS: Gastrointestinal tract: bowel gas pattern is nonspecific. Air filled large bowel including distal rectal gas. Moderate amount stool throughout the large bowel. Vasculature: Double-J ureteric stents bilaterally. Bones/joints: Unremarkable. XR/XR KUB [id number] IMPRESSION: 1. Bowel gas pattern is nonspecific. Air filled large bowel including distal rectal gas. 2. Moderate amount stool throughout the large bowel.
== END 2019-10-26 07:56 | disposition home or self-care (01) ==
PROVIDERS: PCP Family Medicine; Visit Provider Urology
DX: N13.9 Obstructive and reflux uropathy, unspecified (principal); R82.81 Pyuria
CPT/HCPCS: 74018; 81001

== ENCOUNTER 2019-10-28 12:22 | Day surgery (SDC) | payer OTHER, SELFPAY ==
[2019-10-27 16:21] VITALS: BMI 34.9
[2019-10-28] VITALS (7 sets, daily range): BP systolic 125–159; BP diastolic 64–77; PULSE 75–93; RESP 17–20; TEMP 36.1–36.8; O2SAT 94–97
--- NOTE | 2019-10-28 | SCC_ITS ---
Procedure Done: 1. Cystoscopy with bilateral ureteral stent exchange 18.7seconds of fluoroscopic guidance, for a cumulative dose of 4.66 mGy, was provided to Dr. Vergara by the radiology department. C-arm images of the abdomen were saved for the patient's permanent record. [facility]
--- NOTE | 2019-10-28 12:33 | SC_ITS ---
WS: [id number] INTRAOPERATIVE TECHNIQUE: 3 Spot fluoroscopic images for intraoperative purposes. FLUOROSCOPY TIME: 18.7 seconds CLINICAL INFORMATION: Bilateral ureteral stent exchange COMPARISON: None. FINDINGS: Partially visualized deployed ureteral stent. SC/C-arm FL for Urology IMPRESSION: Images obtained for intraoperative purposes.
--- NOTE | 2019-10-28 12:59 | ANES.PREANE2 ---
Pre-Anesthetic Assessment Pre-Anesthetic Assessment: Height/Weight: Height 1.5 m Weight 78.471 kg Temp Pulse Resp BP Pulse Ox 97.3 F L 93 18 159/75 97 10/28/19 12:46 10/28/19 12:46 10/28/19 12:46 10/28/19 12:46 10/28/19 12:46 Preop Diagnosis: Bilateral ureteral obstruction Proposed Procedure: Operation Date: 10/28/19 13:40 Proposed Procedures p Cystoscopy 82621 N13.9(Bilateral) - Nuno Vergara MD s Ureteral Stent Exchange(Bilateral) - Nuno Vergara MD Familial anesthetic complications: None Was Beta Rebecca taken within 24 hours: N/A Last intake: Intake Last Liquid Date 10/28/19 Last Liquid Time 08:00 Last Solid Date 10/27/19 Last Solid Time 20:00 Social: Social History: Tobacco and No alcohol Exam: Pre-Anes Outpt Exam: alert, oriented x 3, clear to auscultation bilaterally and regular rate & rhythm Airway: Cervical ROM: WNL MP: 2 Dentition: Other (poor dentition) Pulmonary: Pulmonary: None reported CV/HEM: CV/HEM: HTN : Comments: Rp fibrosis GI: GI: GERD Metabolic: Metabolic: Morbid obesity Musc/skel: Musc/skel: None reported Neuropsych: Neuropsych: None reported Anesthetic Plan: ASA status: 2 Anesthesia: General Risk of > 500 ml blood loss (7ml/kg in children): No PFSH Anesthesia PFSH: Medical History Cervical cancer Macular degeneration Surgical History H/O bilateral oophorectomy History of appendectomy History of partial hysterectomy Ureteral stent retained Family History Mother CAD (coronary artery disease) Cancer Lung cancer and uterine cancer Father CAD (coronary artery disease) Other Hypertension Denies family history of Lupus (systemic lupus erythematosus) Rheumatoid arthritis Diabetes Chronic kidney disease (CKD) Stroke Social History Smoking and tobacco status: current every day smoker Alcohol intake: never Lives independently: Yes Household members: spouse Marital status: History of recent travel: No Data Anesthesia Cardiac Studies: No Data to Display
[2019-10-28] MEDS: vancomycin 1,000 MG in sodium chloride 0.9% 250 ML 250 MG IV (13:10)
[2019-10-28] MEDS: sodium chloride 0.9% 1,000 ML 30 ML IV (13:20)
--- NOTE | 2019-10-28 13:42 | P.HPUD_ITS ---
Surgery/Procedure H&P Update DATE OF PROCEDURE: October 28, 2019 DATE H&P PERFORMED: 10/26/19 H&P UPDATE INFORMATION: I have reviewed H&P completed within last 30 days, I have examined patient prior to procedure, No changes to prior documentation and H&P is in [facility] EMR on date indicated PREOP DIAGNOSIS: Bilateral ureteral obstruction PLANNED PROCEDURE: Operation Date: 10/28/19 13:40 Proposed Procedures p Cystoscopy 29733 N13.9(Bilateral) - Nuno Vergara MD s Ureteral Stent Exchange(Bilateral) - Nuno Vergara MD
--- NOTE | 2019-10-28 14:50 | P.OP_ITS ---
Operative Report Date of procedure: October 28, 2019 Pre-op Diagnosis: Bilateral ureteral obstruction, retroperitoneal fibrosis Post-op diagnosis: same Procedure Done: 1. Cystoscopy with bilateral ureteral stent exchange Pathology: none sent Surgeon: Jai Estimated blood loss: Minimal Urine output: Not measured Complications: None Findings: Stents easily removed. Replaced with 8 Icelandic by 24 cm double-pigtail without string Condition: stable Disposition: PACU Brief History: Mrs. Padilla is a very pleasant 63-year-old white female recently diagnosed with retroperitoneal fibrosis and bilateral ureteral obstruction. The exact etiology of the fibrosis is unclear but she is being evaluated by Dr. Del Cid and has been seen by Dr. Russ. She had stents placed about 3 months ago and is due for stent change with hopes of extending the interval between stent changes if these stents look in good shape with no encrustation etc. She is admitted now for stent change. Procedure: After routine preoperative evaluation examination and obtaining of informed consent she was taken to the operating suite on 10/28/2019 where general anesthesia was administered without difficulty after appropriate timeout was performed, SCDs confirmed to be functioning, preoperative antibiotics administered, beta-valentina protocol confirmed. Prepped and draped in usual sterile fashion in dorsolithotomy position pain careful attention to avoiding pressure points. 21 Icelandic cystoscope with 30 degree lens was introduced into urethral meatus and advanced into the bladder under videoscopy. Bladder was systematically examined and found to be within normal limits. The stents were in the expected position. Flexible guidewire was advanced up the right ureter next to the stent and the stent was removed without difficulty to the urethral meatus and then the remaining portion was removed. 8 Icelandic by 24 cm double-pigtail stent was then advanced over the guidewire through the cystoscope and appropriate position as confirmed via fluoroscopy and cystoscopy. The same procedure was performed on the left side with same results. The stents were carefully inspected and they were not encrusted. Bladder drained and the procedure completed. She tolerated procedure well without complications and was awakened in the operating room and returned to recovery in stable condition. PLANS: 1. Discharge from outpatient surgery today 2. Follow-up in 3.5 to 4 months with KUB for planning related to her next stent change
--- NOTE | 2019-10-28 15:36 | SUR.PHASEI ---
PT AWAKE ALERT TALATIVE WITH DR OSMAN, PT WANTS TO GO HOME SOON, VSS PT TO OPS HANDOFF TO NURSE AT BEDSIDE.
== END 2019-10-28 16:18 | disposition home or self-care (01) ==
PROVIDERS: PCP Family Medicine; Visit Provider Urology
PROC: 0TJB8ZZ Inspection of Bladder, Via Natural or Artificial Opening Endoscopic (ICD-10-PCS; CPT 52000; principal; 2019-10-28 13:40)
PROC: (CPT 52332; 2019-10-28 13:40)
DX: N20.1 Calculus of ureter (principal); I10 Essential (primary) hypertension; K21.9 Gastro-esophageal reflux disease without esophagitis; E66.01 Morbid (severe) obesity due to excess calories; Z68.34 Body mass index [BMI] 34.0-34.9, adult
CPT/HCPCS: 52332; 12345; 76000; 96365; C2625; J1100; J1885; J2250; J2405; J2704; J3010; J3370; J7030; J7050

== ENCOUNTER → 2019-11-18 11:02 | Outpatient (BNVA) | payer OTHER, SELFPAY | PROVIDERS: PCP Family Medicine; Visit Provider Urology | DX: N30.20 Other chronic cystitis without hematuria (principal) | CPT/HCPCS: 80053; 81001 ==

== ENCOUNTER 2019-12-22 09:39 | Emergency (ER) | payer OTHER, SELFPAY ==
[2019-12-22 09:59] VITALS: BP 148/77; PULSE 95; RESP 20; TEMP 37.3; O2SAT 95; BMI 33.2
[2019-12-22 10:18] VITALS: BP 129/58; PULSE 86; RESP 95; TEMP 37.5; O2SAT 96
[2019-12-22 10:44] LABS: Basophils # 0.1 10^3/uL (0.0-0.1); Basophils % 0.4 %; Eosinophils # 0.1 10^3/uL (0.0-0.8); Eosinophils % 0.8 %; Hematocrit 44.1 % (37.0-47.0); Hemoglobin 14.1 g/dL (11.5-15.3); Lymphocytes # 3.1 10^3/uL (0.8-4.8); Lymphocytes % 25.5 %; Mean Corpuscular Hemoglobin 28.3 pg (28.0-34.0); Mean Corpuscular Volume 88.6 fL (81-99); Mean Platelet Volume 11.1 fL (7.4-10.4); Monocytes # 0.7 10^3/uL (0.2-0.9); Monocytes % 5.4 %; Neutrophils % 67.6 %; Nucleated Red Blood Cells % 0 %; Platelet Count 350 10^3/cmm (130-400); Red Blood Count 4.98 10^6/uL (4.1-5.3); Red Cell Distribution Width 13.2 % (12.1-15.1)
[2019-12-22 10:56] LABS: Add Urine Microscopic? YES; Bilirubin Urine Neg (NEGATIVE); Blood Urine 3+ (Negative); Glucose Urine UA Norm (Normal); Ketones Urine Negative (Negative); Leukocyte Esterase Urine 2+ (Negative); Nitrate Urine Negative (Negative); Protein Urine 1+ (Negative); Specific Gravity, Urine 1.005 (1.005-1.030); Urine Appearance SL Hazy (CLEAR); Urine Color Other (Yellow); Urobilinogen Urine Norm (Negative); pH Urine 6.5 (5-7)
--- NOTE | 2019-12-22 10:58 | W.ED.BACK ---
HPI - Back Pain/Injury General: Chief Complaint: Back Pain/Injury Stated Complaint: back pain, abnormal labs Time Seen by Provider: 12/22/19 09:50 Source: patient and family Mode of arrival: ambulatory Limitations: no limitations History of Present Illness: HPI Narrative: Patient is a very nice 63-year-old female who presents to ED today along with her daughter for evaluation of her bilateral flank pain. Patient tells me she has had intermittent flank pains chronically however they seem to be worse over the past week or so. Patient is reporting blood in her urine. She has a history of retroperitoneal fibrosis with bilateral ureter obstruction. She underwent stent placement by Dr. Vergara a few months ago. She had the stents removed and replaced mid October. Patient states she has not had any follow-up with their office since that appointment. She is also being followed up by Dr. Del Cid. Associated symptoms: Reports abdominal pain (feels like her L abdomen is swollen ) and hematuria; Deny chills, change in bowel habits, dysuria, fever(s), nausea, urinary urgency or vomiting Review of Systems Const: Denies: fever(s), chills, body aches, malaise or night sweats Card: Denies: chest pain Resp: Denies: dyspnea GI: Reports: abdominal pain (feels like her L abdomen is swollen ); Denies: nausea, vomiting, hematemesis, diarrhea, constipation, change in bowel habits or change in stool character : Reports: flank pain and hematuria; Denies: difficulty voiding, dysuria, urinary frequency, urinary urgency, urinary hesitancy or urinary incontinence Musc: Denies: neck pain, extremity pain, extremity swelling, joint pain, joint swelling or joint redness Skin/Breast: Denies: rash Neuro: Denies: headache(s), numbness in extremities, weakness in extremities or sensory changes PFSH ED PFSH: Medical History (Updated 12/22/19 @ 13:06 by DALIA Fields) Cervical cancer Macular degeneration Surgical History H/O bilateral oophorectomy History of appendectomy History of partial hysterectomy Ureteral stent retained Family History Mother CAD (coronary artery disease) Cancer Lung cancer and uterine cancer Father CAD (coronary artery disease) Other Hypertension Denies family history of Lupus (systemic lupus erythematosus) Rheumatoid arthritis Diabetes Chronic kidney disease (CKD) Stroke Social History Smoking and tobacco status: current every day smoker Alcohol intake: never Lives independently: Yes Household members: spouse Marital status: History of recent travel: No Physical Exam Const: COMMON NORMALS: no acute distress, average body habitus, patient oriented x3, no limitations, healthy appearing, alert and well nourished Resp: COMMON NORMALS: normal respiratory effort and clear to auscultation bilaterally AUSCULTATION: clear to auscultation bilaterally Cardio: COMMON NORMALS: regular rate and regular rhythm RATE: regular rate RHYTHM: regular rhythm GI: COMMON NORMALS: Normal to inspection, nondistended, normoactive bowel sounds present, Soft to palpation, No hepatosplenomegaly present and no masses INSPECTION: Yes normal to inspection PALPATION: Yes Soft to palpation, Yes Tenderness to palpation present (GI) (very mild tenderness to L abdomen) and Yes No hepatosplenomegaly present : BLADDER/KIDNEY EXAM: Yes CVA tenderness bilateral Back/Pelvis: GENERAL BACK: Yes CVA tenderness Extremity: COMMON NORMALS: no pedal edema Neuro: COMMON NORMALS: patient oriented x3 SENSORIUM/ORIENTATION: Yes alert Skin: COMMON NORMALS: no rashes or lesions noted GENERAL SKIN EXAM: no rashes or lesions noted Course Vital Signs: Vital signs: Vital Signs Temperature 99.5 F 12/22/19 10:18 Pulse Rate 79 12/22/19 12:33 Respiratory Rate 18 12/22/19 12:33 Blood Pressure 130/60 12/22/19 12:33 Pulse Oximetry 97 12/22/19 12:33 MDM - Back Pain/Injury MDM Narrative: Medical decision making narrative: Patient's initial urine was contaminated therefore cath urine was obtained. Second cath urine does not appear infected. Patient's vital signs are stable. The remainder of her blood work looks good. CT scan does not show anything acute-her stents are patent and kidneys appear normal. She has a follow-up appoint with Dr. Vergara in February. Will speak to case management about getting her a sooner appointment. She also has an appointment with Dr. Del Cid next month for repeat tumor markers. I think this is appropriate follow-up time. Return to ER precautions given. Lab Data: Labs: Lab Results 12/22/19 12/22/19 12/22/19 Range/Units 09:53 10:08 10:08 WBC 12.0 H (4.0-10.0) 10^3/ uL RBC 4.98 (4.1-5.3) 10^6/u L Hgb 14.1 (11.5-15.3) g/dL Hct 44.1 (37.0-47.0) % MCV 88.6 (81-99) fL MCH 28.3 (28.0-34.0) pg MCHC 32.0 (30.0-36.0) g/dL RDW 13.2 (12.1-15.1) % Plt Count 350 (130-400) 10^3/c mm MPV 11.1 H (7.4-10.4) fL Neut % (Auto) 67.6 % Lymph % (Auto) 25.5 % [place] % (Auto) 5.4 % Eos % (Auto) 0.8 % Baso % (Auto) 0.4 % Neut # (Auto) 8.10 H (1.8-7.7) 10^3/u L Lymph # (Auto) 3.1 (0.8-4.8) 10^3/u L [place] # (Auto) 0.7 (0.2-0.9) 10^3/u L Eos # (Auto) 0.1 (0.0-0.8) 10^3/u L Baso # (Auto) 0.1 (0.0-0.1) 10^3/u L Nucleated RBC % (a uto) 0 % Nucleated RBCs # 0.0 /100WBC Sodium 140 (136-145) mmol/L Potassium 4.0 (3.5-5.1) mmol/L Chloride 107 (98-107) mmol/L Carbon Dioxide 22 (22-29) mmol/L Anion Gap 15.0 (5-19) BUN 10 (8-23) mg/dL Creatinine 0.8 (0.5-0.9) mg/dL GFR Calculation 72.9 L (90-130) mL/min Glucose 120 H (65-115) mg/dL Calculated Osmolal ity 287 (285-295) mOsm/k g Calcium 9.5 (8.5-10.5) mg/dL Total Bilirubin 0.5 (0.15-1.2) mg/dL AST 21 (0-32) U/L ALT 15 (0-33) U/L Alkaline Phosphata se 125 H (35-105) IU/L Total Protein 7.1 (6.6-8.7) g/dL Albumin 4.2 (3.5-5.2) g/dL Globulin 2.9 (1.3-4.6) g/dL Urine Color Other (Yellow) Urine Appearance Sl hazy (CLEAR) Urine pH 6.5 (5-7) Ur Specific Gravit y 1.005 (1.005-1.030) Urine Protein 1+ H (Negative) Urine Glucose (UA) Norm (Normal) Urine Ketones Negative (Negative) Urine Blood 3+ H (Negative) Urine Nitrate Negative (Negative) Urine Bilirubin Neg (NEGATIVE) Prot Sulfosalicyli c Acd Urine Urobilinogen Norm (Negative) mg/dL Ur Leukocyte Nakia ase 2+ H (Negative) Urine RBC 15-25 H (0-2) /hpf Urine WBC 25-40 H (0-5) /hpf Ur Squamous Epith Cells 5-10 H (0-5) Amorphous Sediment Not Reportable Urine Bacteria Trace (NONE) Urine Mucus Trace 12/22/19 12/22/19 Range/Units 11:31 11:31 WBC (4.0-10.0) 10^3/ uL RBC (4.1-5.3) 10^6/u L Hgb (11.5-15.3) g/dL Hct (37.0-47.0) % MCV (81-99) fL MCH (28.0-34.0) pg MCHC (30.0-36.0) g/dL RDW (12.1-15.1) % Plt Count (130-400) 10^3/c mm MPV (7.4-10.4) fL Neut % (Auto) % Lymph % (Auto) % [place] % (Auto) % Eos % (Auto) % Baso % (Auto) % Neut # (Auto) (1.8-7.7) 10^3/u L Lymph # (Auto) (0.8-4.8) 10^3/u L [place] # (Auto) (0.2-0.9) 10^3/u L Eos # (Auto) (0.0-0.8) 10^3/u L Baso # (Auto) (0.0-0.1) 10^3/u L Nucleated RBC % (a uto) % Nucleated RBCs # /100WBC Sodium (136-145) mmol/L Potassium (3.5-5.1) mmol/L Chloride (98-107) mmol/L Carbon Dioxide (22-29) mmol/L Anion Gap (5-19) BUN (8-23) mg/dL Creatinine (0.5-0.9) mg/dL GFR Calculation (90-130) mL/min Glucose (65-115) mg/dL Calculated Osmolal ity (285-295) mOsm/k g Calcium (8.5-10.5) mg/dL Total Bilirubin (0.15-1.2) mg/dL AST (0-32) U/L ALT (0-33) U/L Alkaline Phosphata se (35-105) IU/L Total Protein (6.6-8.7) g/dL Albumin (3.5-5.2) g/dL Globulin (1.3-4.6) g/dL Urine Color Cancelled Yellow (Yellow) Urine Appearance Cancelled Cloudy (CLEAR) Urine pH Cancelled 6 (5-7) Ur Specific Gravit y Cancelled 1.010 (1.005-1.030) Urine Protein Cancelled 1+ H (Negative) Urine Glucose (UA) Cancelled Norm (Normal) Urine Ketones Cancelled Negative (Negative) Urine Blood Cancelled 3+ H (Negative) Urine Nitrate Cancelled Negative (Negative) Urine Bilirubin Cancelled Neg (NEGATIVE) Prot Sulfosalicyli c Acd Cancelled Urine Urobilinogen Cancelled Norm (Negative) mg/dL Ur Leukocyte Nakia ase Cancelled Negative (Negative) Urine RBC Too numerous to c nt H (0-2) /hpf Urine WBC 5-10 H (0-5) /hpf Ur Squamous Epith Cells 0-4 H (0-5) Amorphous Sediment Not Reportable Urine Bacteria 1+ H (NONE) Urine Mucus Imaging Data^: CT Abd/Pel: Radiologist's impression: [address] [address] [address] Scan Report Signed Patient: Emily Bowden Unit #: [id number] : 1955 Age/Sex: 63 / F ADM Date: 12/22/19 Loc: ER Room/Bed: Attending Dr: Ordering Provider/Ordering MD: Miriam Matta Date of Service: 12/22/19 Procedure(s): CT abdomen pelvis w con* [id number] Accession Number(s): [id number] Report Number: [id number] PROCEDURE INFORMATION: Exam: CT Abdomen And Pelvis With Contrast Exam date and time: 12/22/2019 11:59 AM Age: 63 years old Clinical indication: Pain; Other: Bi-lat flank; Prior surgery; Surgery date: 6+ months; Surgery type: Hyst, appy, ovarian growth, ; additional info: Bilateral flank pain; Ureter stents present TECHNIQUE: Imaging protocol: Computed tomography of the abdomen and pelvis with intravenous contrast. Radiation optimization: All CT scans at this facility use at least one of these dose optimization techniques: automated exposure control; mA and/or kV adjustment per patient size (includes targeted exams where dose is matched to clinical indication); or iterative reconstruction. Contrast material: OMNI 300; Contrast volume: 95 ml; Contrast route: INTRAVENOUS (IV); COMPARISON: CT abdomen pelvis w con* [id number] 10/21/2019 11:14 AM RADIATION DOSE METRICS: Total DLP (mGy-cm): 673.99 FINDINGS: Liver: No mass. Gallbladder and bile ducts: Unremarkable. No ductal dilation. Pancreas: Normal. No ductal dilation. Spleen: Normal. No splenomegaly. Adrenals: Normal. No mass. Kidneys and ureters: Bilateral ureteral stents, no hydronephrosis of either kidney. No mass or calculus. Minimal left renal atrophy. Stomach and bowel: No acute findings. No obstruction. No mucosal thickening. Appendix: Appendectomy. Intraperitoneal space: Unremarkable. No free air. No significant fluid collection. Vasculature: No abdominal aortic aneurysm. Lymph nodes: No significant adenopathy. Bladder: Unremarkable as visualized. Reproductive: Hysterectomy. Bones/joints: No acute findings. Soft tissues: Unremarkable. CT/CT abdomen pelvis w con* [id number] IMPRESSION: No acute findings. Radiation Dose CTDIVOL = (mGy): DLP = 673.99 (mGy-cm) Dictated By: Jourdan Oropeza MD Signed By: Jourdan Oropeza MD Signed Date/Time: 12/22/19 1228 DD/ 1227 Discharge Plan Discharge Patient Disposition: Home Clinical Impression: Retroperitoneal fibrosis Condition: Stable Prescriptions: New hydrocodone-acetaminophen 5-325 mg tablet 1 tab PO Q6H PRN (Reason: pain) Qty: 14 RF: 0 Zofran 4 mg tablet 4 mg PO Q6H PRN (Reason: nausea and vomiting) Qty: 14 RF: 0 No Action polyethylene glycol 3350 [Miralax] 17 gram powder in packet 17 gm PO DAILY PRN (Reason: Constipation) RF: 0 methenamine hippurate 1 gram tablet 1 gm PO BID Qty: 60 RF: 12 omeprazole magnesium [Prilosec OTC] 20 mg Tablet,Delayed Release (Dr/Ec) 20 mg PO DAILY RF: 0 Century Adults 50 Plus 0.4-300-250 mg-mcg-mcg Tablet 1 tab PO DAILY RF: 0 PreserVision AREDS-2 1 cap PO DAILY RF: 0 amlodipine 5 mg Tablet 5 mg PO DAILY Qty: 30 RF: 0 Vitamin C 1,000 mg Tablet 1,000 mg PO BID RF: 0 Vitamin D3 1 tab PO DAILY RF: 0 Tylenol 8 Hour 650 mg tablet extended release 650 - 1,300 mg PO Q8H PRN (Reason: pain) RF: 0 Discharge Orders: Discharge Order (Routine); Ordered 12/22/19 Ordered By: Miriam Matta Referrals: Gem Olivares MD [Primary Care Provider] - Nuno Vergara MD [Physician] - Activity Restrictions/Additional Instructions: As discussed we will get you a sooner appointment with Dr. Vergara. Return to the emergency department for worsening or severe pain, repetitive vomiting, fevers greater than 100.4, inability to urinate, or any other concerns you may have. Coding Level of Care Code ED Meat Stock Clerk for Chg Fwd Exam Detailed
[2019-12-22 10:59] LABS: Alanine Aminotransferase 15 U/L (0-33); Albumin Level 4.2 g/dL (3.5-5.2); Alkaline Phosphatase 125 IU/L (35-105); Aspartate Amino Transferase 21 U/L (0-32); Blood Urea Nitrogen 10 mg/dL (8-23); Calcium 9.5 mg/dL (8.5-10.5); Carbon Dioxide 22 mmol/L (22-29); Chloride 107 mmol/L (98-107); Creatinine Clr Calc Pharmacy 67.7847; Globulin 2.9 g/dL (1.3-4.6); Glomerular Filtration Rate 72.9 mL/min (90-130); Glucose 120 mg/dL (65-115); Osmolality Calculated 287 mOsm/kg (285-295); Sodium 140 mmol/L (136-145); Total Bilirubin 0.5 mg/dL (0.15-1.2); Total Protein 7.1 g/dL (6.6-8.7)
[2019-12-22 11:02] LABS: RBC Urine 15-25 /hpf (0-2)
[2019-12-22 11:03] LABS: Add Urine Culture? Yes; Bacteria Urine TRACE; Mucus Urine TRACE; WBC Urine 25-40 /hpf (0-5)
--- NOTE | 2019-12-22 11:16 | CTR_ITS ---
PROCEDURE INFORMATION: Exam: CT Abdomen And Pelvis With Contrast Exam date and time: 12/22/2019 11:59 AM Age: 63 years old Clinical indication: Pain; Other: Bi-lat flank; Prior surgery; Surgery date: 6+ months; Surgery type: Hyst, appy, ovarian growth, ; additional info: Bilateral flank pain; Ureter stents present TECHNIQUE: Imaging protocol: Computed tomography of the abdomen and pelvis with intravenous contrast. Radiation optimization: All CT scans at this facility use at least one of these dose optimization techniques: automated exposure control; mA and/or kV adjustment per patient size (includes targeted exams where dose is matched to clinical indication); or iterative reconstruction. Contrast material: OMNI 300; Contrast volume: 95 ml; Contrast route: INTRAVENOUS (IV); COMPARISON: CT abdomen pelvis w con* [id number] 10/21/2019 11:14 AM RADIATION DOSE METRICS: Total DLP (mGy-cm): 673.99 FINDINGS: Liver: No mass. Gallbladder and bile ducts: Unremarkable. No ductal dilation. Pancreas: Normal. No ductal dilation. Spleen: Normal. No splenomegaly. Adrenals: Normal. No mass. Kidneys and ureters: Bilateral ureteral stents, no hydronephrosis of either kidney. No mass or calculus. Minimal left renal atrophy. Stomach and bowel: No acute findings. No obstruction. No mucosal thickening. Appendix: Appendectomy. Intraperitoneal space: Unremarkable. No free air. No significant fluid collection. Vasculature: No abdominal aortic aneurysm. Lymph nodes: No significant adenopathy. Bladder: Unremarkable as visualized. Reproductive: Hysterectomy. Bones/joints: No acute findings. Soft tissues: Unremarkable. CT/CT abdomen pelvis w con* [id number] IMPRESSION: No acute findings. Radiation Dose CTDIVOL = (mGy): DLP = 673.99 (mGy-cm)
[2019-12-22 11:57] LABS: Urine Appearance Cloudy (CLEAR); Urine Color Yellow (Yellow); pH Urine 6 (5-7)
[2019-12-22 11:58] LABS: Bilirubin Urine Neg (NEGATIVE); Blood Urine 3+ (Negative); Glucose Urine UA Norm (Normal); Ketones Urine Negative (Negative); Leukocyte Esterase Urine Negative (Negative); Nitrate Urine Negative (Negative); Protein Urine 1+ (Negative); Urobilinogen Urine Norm (Negative)
[2019-12-22 12:00] LABS: Add Urine Culture? Yes; Bacteria Urine 1+; RBC Urine TOO NUMEROUS TO CNT /hpf (0-2); Squamous Epithelial Cell Urine 0-4 (0-5)
[2019-12-22] MEDS: iohexol 300 mg/mL 100 mL Btl IV (12:04)
[2019-12-22] MEDS: ondansetron 2 mg/ML SDV 2 mL 4 MG IVP (12:22)
[2019-12-22 12:23] VITALS: RESP 16
[2019-12-22] MEDS: morphine 4 mg/mL SDV 1 mL IVP (12:23)
[2019-12-22 12:33] VITALS: BP 130/60; PULSE 79; RESP 18; O2SAT 97
[2019-12-22 13:11] VITALS: BP 137/54; PULSE 71; RESP 18; TEMP 36.9; O2SAT 97
--- NOTE | 2019-12-22 13:12 | DCPLANNER ---
insurance territory manager was asked to schedule a follow up appointment for patient with Dr. Vergara, sooner than her appointment that is scheduled in February. insurance territory manager called the office of Dr. Vergara, spoke with Nory, gave clinic patients information. insurance territory manager was told that patients information would be printed and given to Esther for review. Clinic will call patient with appointment information.
--- NOTE | 2019-12-24 07:46 | DCPLANNER ---
Patient has a follow up appointment scheduled for Friday, January 07, 2020 at 11:[address] Vergara. Clinic will call patient with appointment information.
--- NOTE | 2020-01-18 15:43 | DCPLANNER ---
Patient had a follow up appointment scheduled for 20 - patient did attend appointment.
== END 2019-12-22 13:19 | disposition home or self-care (01) ==
PROVIDERS: Emergency Provider Physician Assistant; PCP Family Medicine
DX: N13.5 Crossing vessel and stricture of ureter without hydronephrosis (principal); Z85.41 Personal history of malignant neoplasm of cervix uteri; F17.210 Nicotine dependence, cigarettes, uncomplicated
CPT/HCPCS: 12345; 74177; 80053; 81001; 85025; 87086; 96374; 96375; 99283; J2270; J2405; Q9967

== ENCOUNTER 2020-01-07 09:59 | Outpatient (CLI) | payer OTHER, SELFPAY ==
--- NOTE | 2020-01-07 10:15 | XR_ITS ---
WS: [id number] KUB, 01/07/2020 Clinical Data: OBSTRUCTIVE UROPATHY Comparison: KUB, 10/26/2019. Findings: Bilateral ureteral stents remain in good position. No renal or ureteral calculi are seen. There is a minimal amount of fecal material in the descending colon and rectum. XR/XR KUB [id number] Impression: Bilateral ureteral stents.
== END 2020-01-07 10:00 | disposition home or self-care (01) ==
LOC: RAD 10:04
PROVIDERS: PCP Family Medicine; Visit Provider Urology
DX: N13.9 Obstructive and reflux uropathy, unspecified (principal); Z96.0 Presence of urogenital implants
CPT/HCPCS: 74018; 81001

== ENCOUNTER 2020-01-31 10:55 | Outpatient (CLI) | payer OTHER, SELFPAY ==
--- NOTE | 2020-01-31 10:58 | CT_ITS ---
WS: [id number] CT ABDOMEN PELVIS TECHNIQUE: Contrast-enhanced CT of the abdomen and pelvis with coronal and sagittal reformatted image s. CLINICAL INFORMATION: RETROPERITONEAL FIBOSIS COMPARISON: 12/22/2019 and 10/21/2019 PET/CT August 07, 2019, July 19, 2019 DLP: 749.[address] scans at [facility] use at least one of these dose optimization techniques: automat ed exposure control; mA and/or kV adjustment per patient size (includes targeted exams where dose is matched to clinical indication); or iterative reconstruction. FINDINGS: Mild diffuse fatty infiltration of the liver. Normal portal vein and splenic vein. Tiny gallbladder w all polyps or cholesterolosis. Moderate esophageal hiatal hernia. Slight hazy atelectasis in right lo wer lobe. Lung bases are well aerated. No evidence of small or large bowel obstruction. Normal pancreas. Normal spleen. Adrenal glands are normal. Normal renal parenchymal enhancement. Left renal cortical atrophy. Bilateral double-J ureteral stents in place. No hydronephrosis. Normal calib er abdominal aorta. Mild aortic calcification. Stable mild induration about the right renal pelvis an d proximal ureter unchanged. Retroperitoneal fibrosis is essentially resolved compared to the prior e xaminations. No evidence of new or progressive disease. No periaortic lymphadenopathy. No pelvic lymphadenopathy. Disc space narrowing worse L5-S1 with vacuu m disc phenomenon. CT/CT abdomen pelvis w con* [id number] IMPRESSION: 1. Retroperitoneal fibrosis has essentially resolved. No evidence of new or pr ogressive retroperitoneal fibrosis. 2. No abdominal or pelvic lymphadenopathy. 3. Stable bilateral double-J ureteral stents. No significant hydronephrosis. M ild induration about the right renal pelvis and proximal ureter unchanged. 4. Mild diffuse fatty infiltration of the liver. 5. Moderate esophageal hiatal hernia. 6. Prior hysterectomy.
[2020-01-31 12:05] LABS: Basophils # 0.1 10^3/uL (0.0-0.1); Basophils % 0.6 %; Eosinophils # 0.1 10^3/uL (0.0-0.8); Hematocrit 42.5 % (37.0-47.0); Hemoglobin 13.4 g/dL (11.5-15.3); Lymphocytes # 2.9 10^3/uL (0.8-4.8); Lymphocytes % 27.8 %; Mean Corpuscular HGB Conc 31.5 g/dL (30.0-36.0); Mean Corpuscular Hemoglobin 28.2 pg (28.0-34.0); Mean Corpuscular Volume 89.5 fL (81-99); Mean Platelet Volume 10.5 fL (7.4-10.4); Monocytes # 0.5 10^3/uL (0.2-0.9); Monocytes % 4.8 %; Neutrophils # 6.89 10^3/uL (1.8-7.7); Neutrophils % 65.5 %; Nucleated Red Blood Cells % 0 %; Platelet Count 384 10^3/cmm (130-400); Red Blood Count 4.75 10^6/uL (4.1-5.3); White Blood Count 10.5 10^3/uL (4.0-10.0)
[2020-01-31 12:46] LABS: CA 125 9.8 U/mL (0-35); Carcinoembryonic Antigen 2.2 ng/mL (0.0-4.7)
[2020-01-31] MEDS: iohexol 300 mg/mL 50 mL Btl PO (12:58)
[2020-01-31] MEDS: iohexol 300 mg/mL 100 mL Btl IV (12:58)
[2020-01-31 12:59] LABS: Alanine Aminotransferase 14 U/L (0-33); Albumin Level 4.3 g/dL (3.5-5.2); Alkaline Phosphatase 133 IU/L (35-105); Aspartate Amino Transferase 17 U/L (0-32); Blood Urea Nitrogen 10 mg/dL (8-23); Calcium 9.3 mg/dL (8.5-10.5); Carbon Dioxide 25 mmol/L (22-29); Chloride 105 mmol/L (98-107); Globulin 2.5 g/dL (1.3-4.6); Glomerular Filtration Rate 72.7 mL/min (90-130); Glucose 95 mg/dL (65-115); Lactate Dehydrogenase 184 U/L (135-214); Osmolality Calculated 293 mOsm/kg (285-295); Sodium 142 mmol/L (136-145); Total Bilirubin 0.4 mg/dL (0.15-1.2); Total Protein 6.8 g/dL (6.6-8.7)
[2020-01-31 13:12] LABS: Erythrocyte Sedimentation Rate 25 mm/hr (0-15)
[2020-02-01 11:28] LABS: CA 27.29 36 U/mL (<38)
== END 2020-01-31 10:56 | disposition home or self-care (01) ==
LOC: CT 10:56
PROVIDERS: PCP Family Medicine; Visit Provider Internal Medicine Medical Oncology
DX: N13.5 Crossing vessel and stricture of ureter without hydronephrosis (principal); R19.00 Intra-abdominal and pelvic swelling, mass and lump, unspecified site; R97.8 Other abnormal tumor markers; K76.0 Fatty (change of) liver, not elsewhere classified; K44.9 Diaphragmatic hernia without obstruction or gangrene; Z90.710 Acquired absence of both cervix and uterus; Z96.0 Presence of urogenital implants
CPT/HCPCS: 36415; 74177; 80053; 82378; 83615; 85025; 85651; 86300; 86301; 86304

== ENCOUNTER 2020-02-02 06:13 | Outpatient (CLI) | payer OTHER, SELFPAY ==
--- NOTE | 2020-02-06 16:22 | ONC FU_ITS ---
Dr. Del Cid Patient Follow-Up Note Patient: Emily Bowden Unit #: [id number]: 1955 Dicatated By: Ranjan Del Cid M.D.Date of Visit:Feb 02, 2020 Onc Med Follow-up/Prog Note Chief Complaint: Retroperitoneal fibrosis. History of Present Illness: This is a 64 year-old woman who was recently found to have CT evidence of retroperitoneal fibrosis. On 07/19/2019 she was admitted to the hospital after presenting to the emergency room with pain in the lower abdomen/lower back which has been getting worse over a period of 3 to [address] abdomen/pelvis showed periaortic soft tissue thickening with inflammatory stranding involving the abdominal aorta eccentric to the left. It was noted to result in bilateral obstructive uropathy involving the traversing ureters with moderate to advanced bilateral hydronephrosis. There were a few slightly prominent but not pathologically enlarged periaortic and retroperitoneal lymph nodes. Her CBC showed mildly elevated white blood cell count at 12,000 with hemoglobin mildly decreased at 11.6 g and platelet count elevated at 560,000. Sed rate was significantly elevated at 97 mm/hour and the CRP was elevated at 67/4.9 mg/L. BUN and creatinine were elevated at 22 and 2.6 mg/dL. The alkaline phosphatase was significantly elevated at 427/105 IU/L with bilirubin normal at 0.5 mg/dL. Urinalysis was unrevealing. The following day she underwent cystoscopy with placement of bilateral ureteral stents. She was discharged the following day with her creatinine down to 1.6 mg/dL. Tumor markers which have been drawn prior to discharge included elevated CA-19-9 at 171 U/mL and elevated CA-27-29 at 100 U/mL. The CEA was normal at 0.9 ng/mL, and the CA-125 was normal at 10.2 U/mL. Her history is significant in that she had previously undergone partial hysterectomy for cervical cancer. That was done prior to 1994 when she was still living in [place]. Sometime later, estimated at [id number], she underwent bilateral oophorectomy, reportedly for an ovarian mass, but she was told it was benign. She had only short-term hormone replacement therapy following the surgery. I had seen her initially on 07/22/2019. With the elevated tumor markers, I was suspicious about the possibility of underlying malignancy. She then had further evaluation with PET/CT on 08/07/2019. There was noted to be inflammatory FDG uptake in the retroperitoneal fibrosis, but it did not appear to be suspicious for malignancy. With that finding, she was followed on observation/expectant management. Her other medical illnesses have been limited to GERD, degenerative disease of the spine, and macular degeneration. She has a history of smoking previously up to 2 to 3 packs of cigarettes daily. INTERIM HISTORY: As of her follow-up visit in October, her CA 19-9 level remains significantly elevated at 434.5 U/mL. Her repeat CT abdomen/pelvis showed interval placement of bilateral ureteral stents with resolved right hydronephrosis and with very minimal persistent soft tissue thickening at the right renal pelvis. There was persistent moderate hydronephrosis and proximal ureteral dilatation on the left. There was near complete resolution of the previously described retroperitoneal fibrosis surrounding the aorta. There was no progression of retroperitoneal lymph nodes. With those findings she continued observation/expectant management. Her repeat CT abdomen/pelvis on 01/31/2020 again showed resolution of retroperitoneal fibrosis with no evidence of new or progressive fibrosis. There was no abnormal pelvic lymphadenopathy. There was no significant hydronephrosis and the mild induration about the right renal pelvis and proximal ureter appeared unchanged. She is seen for a follow-up visit. She complains that her energy is not good and she wears out with activity. Her ECOG score is 1. Appetite is variable. She has lost weight. She does not have fever or night sweats. She says it sometimes feels like her insides are going to fall out. She complains that it hurts to wear her jeans across her stomach. She has nausea if she eats too much. She has constipation, which she is managing with MiraLAX. She says she has been peeing a lot of blood. She is scheduled to see Dr. Vergara again on 14 March. She has been having pain in her left lateral thigh area. She has occasional headache. She has no focal neurologic symptoms. Medications: Acetaminophen 1 Tablet (of 650 mg) Oral q 8 hours PRN, amLODIPine Besylate 1 Tablet (of 5 mg) Oral daily, century adults 1 Tablet Oral daily, HYDROcodone-Acetaminophen 1 Tablet (of 5-325 mg) Oral q 8 hours PRN, Methenamine Hippurate 1 Tablet (of 1 g) Oral b.i.d., PreserVision AREDS 1 Capsule Oral daily, Probiotic 1 Capsule Oral daily, Sennosides-Docusate Sodium 1 Capsule (of 8.6-50 mg) Oral b.i.d., Vitamin C 2 Capsule (of 500 mg) Oral b.i.d. Allergies: No Known Allergies. Review of Systems: Constitutional - Her energy is not good. She wears out with activity. Appetite is variable. She has lost weight. She does not have fever or night sweats. ECOG score is 1, ENMT - No sinus congestion/drainage. No mouth sores. No sore throat or difficulty swallowing, Hematologic/Lymphatic - No abnormal bruising or bleeding, Respiratory - She sometimes has shortness of breath. She has a morning cough. She is smoking 2 packs of cigarettes daily. No pleuritic pain or hemoptysis, Cardiovascular - No angina pain. No palpitations, Gastrointestinal - As for text she has nausea if she eats too much. Her acid reflux is adequately managed with Prilosec. She has constipation, adequately managed with MiraLAX. No blood in the stool or black stools, Genitourinary (F) - No dysuria, but she has intermittent hematuria. No urgency or incontinence, Musculoskeletal - She has pain in her left leg/thigh. She has no other joint or bone pain, Integumentary - No skin rash, Neurologic - She has occasional headache. No dizziness. No numbness or tingling. No other focal neurologic symptoms, Psychiatric - No anxiety or depression. She has difficulty sleeping. Vital Signs: Performed on Feb 02, 2020 12:58 Height - 60.00 in Weight - 167.8 lbs (LOW) BSA - 1.73 sq.m BMI - 32.77 (HIGH) Temperature - 98.7 F Pulse - 95 /min Respiration - 22 /min BP - 131/58 mm(hg) O2 Sat - 98 % Pain - 5 Physical Examination: Constitutional - She looks pretty good generally, Eyes - Sclerae nonicteric. Conjunctivae clear, ENMT - No lesions noted in the oral cavity, Hematologic/Lymphatic - No cervical, clavicular, or axillary adenopathy, Respiratory - Lungs are clear with good air movement bilaterally, Cardiovascular - Heart rhythm is regular. There is no murmur, gallop, or rub noted, Abdomen - Soft and non-tender. Liver and spleen are not enlarged. There is no abdominal mass or ascites noted and there is no inguinal adenopathy, Extremities - No edema, Neurologic - No focal neurologic deficits noted. Lab/Imaging: CBC shows hemoglobin 13.4 g, white blood cell count 10,500, and platelet count 384,000. Sed rate is just slightly elevated at 25 mm/hour. Comprehensive metabolic profile is unremarkable except for slightly elevated alkaline phosphatase at 133/105 IU/L. Tumor markers are now all in normal range including the CA 19-9 which is down to 27.00 U/mL. Impression: 1. Patient with CT evidence of retroperitoneal fibrosis and associated bilateral hydronephrosis. The underlying cause has not been determined. 2. She had clinical improvement following placement of bilateral ureteral stents on 07/20/2019. 3. She has a remote history of cervical cancer. 4. She had undergone bilateral oophorectomy somewhere in the range of [id number], reportedly for benign disease. Her other medical illnesses include: 5. GERD. 6. Degenerative disease of the spine. 7. Macular degeneration. Her PET/CT on 08/07/2019 showed inflammatory uptake associated with the retroperitoneal fibrosis. The findings were not suspicious for malignancy, and she has been followed on observation/expectant management. Her repeat CT abdomen/pelvis on 10/21/2019 reported near complete resolution of previously described retroperitoneal fibrosis surrounding the aorta. There was interval placement of ureteral stents with resolution of right hydronephrosis, but with persistent left moderate hydronephrosis and proximal ureteral dilatation. Her repeat tumor markers show significant further elevation of the CA-19-9 level to 434 U/mL, still highly suspicious for underlying malignancy. Her current CT continues to show mild induration in the area of the right renal pelvis, but it again shows complete resolution of the retroperitoneal fibrosis with no associated lymphadenopathy or other evidence of malignancy. Her CA 19-9 level is also now come down to normal. She continues to have significant fatigue, and she also has having anorexia/weight loss. However, there are no clinical findings to suggest underlying malignancy. Plan: I will need to talk to Dr. Vergara regarding her further management. I would assume that it would be reasonable now to remove the stents, in which case she will require ongoing surveillance for hydronephrosis. Signed By: Ranjan Del Cid M.D. <<Signature on File>>
== END 2020-02-02 06:14 | disposition home or self-care (01) ==
LOC: ONCMED 06:14
PROVIDERS: PCP Family Medicine; Visit Provider Internal Medicine Medical Oncology
DX: N13.5 Crossing vessel and stricture of ureter without hydronephrosis (principal); N13.30 Unspecified hydronephrosis; K21.9 Gastro-esophageal reflux disease without esophagitis; M47.9 Spondylosis, unspecified; H35.30 Unspecified macular degeneration; Z85.41 Personal history of malignant neoplasm of cervix uteri; Z96.0 Presence of urogenital implants
CPT/HCPCS: 99214

== ENCOUNTER 2020-02-16 09:56 | Outpatient (CLI) | payer OTHER, SELFPAY ==
--- NOTE | 2020-02-16 10:02 | CT_ITS ---
WS: [id number] LDCT LUNG CANCER SCREENING TECHNIQUE: Noncontrast CT of the chest with coronal and sagittal reformatted images. CLINICAL INFORMATION: NICOTINE DEPENDENCE COMPARISON: CT chest July 26, 2019 DLP: 60.66 mGy.cm DIvol: 2.[address] scans at [facility] use at least one of these dose optimization techniques: automat ed exposure control; mA and/or kV adjustment per patient size (includes targeted exams where dose is matched to clinical indication); or iterative reconstruction. FINDINGS: Subsegmental atelectasis in the upper lobes bilaterally. A few calcified granulomas. Subsegmental ate lectasis right lower lobe. No suspicious pulmonary opacities. Aortic calcification. No mediastinal or hilar lymphadenopathy. Sma ll esophageal hiatal hernia. No axillary lymphadenopathy. CT/CT lung screening [id number] IMPRESSION: LUNG-RADS: 1-Negative FOLLOW UP: 12 Month: Continue annual screening with LDCT
== END 2020-02-16 09:57 | disposition home or self-care (01) ==
LOC: CT 09:59
PROVIDERS: PCP Family Medicine; Visit Provider Family Medicine
DX: Z12.2 Encounter for screening for malignant neoplasm of respiratory organs (principal); F17.210 Nicotine dependence, cigarettes, uncomplicated; K44.9 Diaphragmatic hernia without obstruction or gangrene; J98.11 Atelectasis
CPT/HCPCS: G0297

== ENCOUNTER 2020-03-14 11:59 | Outpatient (CLI) | payer OTHER, SELFPAY ==
--- NOTE | 2020-03-14 12:15 | XRR_ITS ---
PROCEDURE INFORMATION: Exam: XR Abdomen, 1 View Exam date and time: 03/14/2020 12:18 PM Age: 64 years old Clinical indication: Condition or disease; Other: Obstructive uropathy; Prior surgery; Surgery type: Hysto TECHNIQUE: Imaging protocol: XR of the abdomen. Views: Frontal supine view of the abdomen. 1 View. COMPARISON: CT abdomen pelvis w con* [id number] 01/31/2020 12:49 PM FINDINGS: Gastrointestinal tract: No dilated gas-filled loops of bowel. Organs: No radiopaque renal or ureteral calculi. Vasculature: There are bilateral double-J stents with the proximal pigtails in the kidneys and the distal pigtails in the bladder. There is medial deviation of the stents, present before and unchanged. Bones/joints: No acute osseous abnormality. XR/XR KUB [id number] IMPRESSION: Unchanged bilateral ureteral stents.
== END 2020-03-14 12:00 | disposition home or self-care (01) ==
LOC: RAD 12:00
PROVIDERS: PCP Family Medicine; Visit Provider Urology
DX: N13.9 Obstructive and reflux uropathy, unspecified (principal); Z96.0 Presence of urogenital implants
CPT/HCPCS: 74018; 81003; 87086

== ENCOUNTER 2020-03-21 07:52 | Outpatient (CLI) | payer OTHER, SELFPAY ==
--- NOTE | 2020-03-21 08:00 | US_ITS ---
WS: [id number] RENAL ULTRASOUND HISTORY: BILATERAL OBSTRUCTIVE UROPATHY COMPARISON: 07/26/2019 TECHNIQUE: 2-D and color Doppler imaging of the kidney submitted. Right kidney: 11.6 cm x 5.7 cm x 5.3 cm. Normal size kidney. Mild RIGHT hydronephrosis. Slight improvement since the prior study of 07/26/2019. No mass identified. Normal cortical medullary differentiation. Left kidney: 9.7 cm x 4.0 cm x 3.2 cm. Normal echogenicity with no hydronephrosis or mass. Previously described hydronephrosis has resolved. Aorta: Normal. Urinary Bladder: Minimally distended urinary bladder. Mild wall thickening is probably due to the non distention. US/US renal BI* [id number] IMPRESSION: 1. Resolved LEFT hydronephrosis since 07/26/2019. 2. Mild but improved RIGHT hydronephrosis.
== END 2020-03-21 07:53 | disposition home or self-care (01) ==
PROVIDERS: PCP Family Medicine; Visit Provider Urology
DX: N13.9 Obstructive and reflux uropathy, unspecified (principal); N13.30 Unspecified hydronephrosis; Z96.0 Presence of urogenital implants
CPT/HCPCS: 76770; 81003

== ENCOUNTER 2020-03-22 13:34 | Outpatient (CLI) | payer OTHER, SELFPAY ==
--- NOTE | 2020-03-22 13:37 | MM_ITS ---
WS: [id number] SCREENING DIGITAL MAMMOGRAM WITH CAD HISTORY: SCREENING COMPARISON: 11/27/2005 and 11/18/2005 Bilateral CC and MLO views submitted. Computer aided detection analyzed. Breast composition: The breasts are almost entirely fatty. No suspicious masses, microcalcifications or architectural distortion. 6 mm asymmetry in the lateral LEFT breast at the site of the prior biops y. No suspicious mass or distortion. Benign calcifications in each breast. MM/[place] [id number] IMPRESSION: BI-RADS: 2-Benign FOLLOW UP: 1 Year Follow-up
== END 2020-03-22 13:35 | disposition home or self-care (01) ==
PROVIDERS: PCP Family Medicine; Visit Provider Family Medicine
DX: Z12.31 Encounter for screening mammogram for malignant neoplasm of breast (principal)
CPT/HCPCS: 77067

== ENCOUNTER 2020-04-03 09:46 | Outpatient (CLI) | payer OTHER, SELFPAY ==
--- NOTE | 2020-04-03 10:15 | US_ITS ---
WS: [id number] RENAL ULTRASOUND HISTORY: HYDRONEPHROSIS COMPARISON: 03/21/2020 TECHNIQUE: 2-D and color Doppler imaging of the kidney submitted. Right kidney: 10.8 cm x 5.2 cm x 5.2 cm. Very minimal splitting of the RIGHT renal pelvis. Mild improvement since the prior examination. No ca lyceal dilatation. Left kidney: 10.0 cm x 4.0 cm x 4.1 cm. Normal echogenicity with no hydronephrosis or mass. Aorta: Normal. Urinary Bladder: Normally distended bladder. Stents are noted within the urinary bladder. No pigtails are identified within the renal pelves. US/US renal BI* [id number] IMPRESSION: 1. Very minimal RIGHT hydronephrosis. Slight improvement since the most recent study. 2. Resolved LEFT hydronephrosis.
== END 2020-04-03 09:47 | disposition home or self-care (01) ==
LOC: US 09:47
PROVIDERS: PCP Family Medicine; Visit Provider Nurse Practitioner Family
DX: N13.30 Unspecified hydronephrosis (principal)
CPT/HCPCS: 76770; 81003

== ENCOUNTER 2020-04-11 08:46 | Outpatient (CLI) | payer OTHER, SELFPAY ==
--- NOTE | 2020-04-11 08:45 | US_ITS ---
WS: [id number] ULTRASOUND RENAL TECHNIQUE: Ultrasound examination of both kidneys. CLINICAL INFORMATION: HYDRONEPHROSIS COMPARISON: Ultrasound April 03, 2020 FINDINGS: RIGHT: Minimal residual right hydronephrosis. Echogenicity: Normal. Cortical thickness: 1.6 cm; Normal. Hydronephrosis: Minimal Perinephric fluid: None. Right kidney measures: 11.9 cm x 4.7 cm x 5.3 cm. LEFT: Moderate left hydronephrosis is new from previous Echogenicity: Normal. Cortical thickness: 1.5 cm; Normal. Hydronephrosis: Moderate Perinephric fluid: None. Left kidney measures: 11.0 cm x 7.6 cm x 5.5 cm. Normal visualized aorta. US/US renal BI* [id number] IMPRESSION: 1. Minimal right renal hydronephrosis is unchanged. 2. Moderate left hydronephrosis. Dilatation of the left UPJ. CT could be obtai alvaro to evaluate for distal obstruction. 3. Normal bladder.
== END 2020-04-11 08:47 | disposition home or self-care (01) ==
PROVIDERS: PCP Family Medicine; Visit Provider Urology
DX: N13.30 Unspecified hydronephrosis (principal)
CPT/HCPCS: 76770; 81003; 87086; 87635

== ENCOUNTER 2020-04-13 05:41 | Day surgery (SDC) | payer OTHER, SELFPAY ==
[2020-04-12 10:51] VITALS: BMI 32.2
[2020-04-13] VITALS (7 sets, daily range): BP systolic 101–129; BP diastolic 54–75; PULSE 77–86; RESP 16–21; TEMP 36.3–36.6; O2SAT 92–97
--- NOTE | 2020-04-13 | SCC_ITS ---
Procedure Done: 1. Cystoscopy with BILATERAL retrograde ureteropyelogram 2. LEFT ureteral stent placement 65.8 seconds of fluoroscopic guidance, for a cumulative dose of 17.75 mGy, was provided to by the radiology department. C-arm images of the abdomen/pelvis were saved for the patient's permanent record. [facility]
--- NOTE | 2020-04-13 05:41 | SC_ITS ---
WS: [id number] Exam: C-arm FL for Urology Date/Time of Exam: 04/13/2020 5:41 AM Reason For Exam: Ureteral obstruction Single AP C-arm image of the pelvis is submitted for evaluation. A cystoscope is noted in the urinary bladder. Right-sided retrograde pyelography images show no obvious obstruction of the right ureter. The right renal pelvis is not significantly dilated. Retrograde pyelography of the left ureter shows moderate h ydronephrosis of the left kidney. A left ureteral stent catheter has been placed and appears to be in appropriate location. The left ureter was unremarkable as visualized. WA/C-arm FL for Urology IMPRESSION: 1. Retrograde pyelography shows moderate left hydronephrosis. A left ureteral s tent catheter is been placed and appears to be in good position. 2. Right retrograde pyelography images demonstrate no obvious obstruction.
--- NOTE | 2020-04-13 06:38 | W.PM.OPSUD ---
Surgery/Procedure H&P Update DATE OF PROCEDURE: April 13, 2020 DATE H&P PERFORMED: 04/11/20 H&P UPDATE INFORMATION: I have reviewed H&P completed within last 30 days, I have examined patient prior to procedure, No changes to prior documentation and H[place] is [place] [facility] [place] indicated PREOP DIAGNOSIS: Retroperitoneal fibrosis, left ureteral obstruction PLANNED PROCEDURE: Operation Date: 04/13/20 07:00 Proposed Procedures p bilateral Cystoscopy [id number] n13.30 z96.0(Bilateral) - Nuno Vergara MD s Retrograde Pyelogram(Bilateral) - Nuno Vergara MD s Ureteral Stent Placement(Not Applicable) - Nuno Vergara MD
--- NOTE | 2020-04-13 06:42 | P.OP_ITS ---
Operative Report Date of procedure: April 13, 2020 Pre-op Diagnosis: Retroperitoneal fibrosis, left ureteral obstruction Post-op diagnosis: same Procedure Done: 1. Cystoscopy with BILATERAL retrograde ureteropyelogram 2. LEFT ureteral stent placement Pathology: none sent Surgeon: Jai Anesthesia: General Estimated blood loss: None Urine output: Not measured Complications: None Findings: 1. No evidence of right ureteral dilation or hydronephrosis. 2. Marked left hydronephrosis with left mid ureteral level of obstruction. There was a rather abrupt transition at the mid ureter but it was bypassable. Condition: stable Disposition: PACU Brief History: Emily is a very pleasant 64-year-old white female with a history of bilateral ureteral obstruction secondary to retroperitoneal fibrosis of unclear etiology. She was being followed by Dr. Del Cid who was concerned the possibility of a malignant process. At discovery she had bilateral ureteral obstruction and was treated with indwelling ureteral stents that have been changed several times. Over time the CT scan findings showed diminishment of the retroperitoneal fibrosis and the patient elected to go through a trial of stent removal one at a time with close follow-up for evidence of recurrent obstruction. Her right ureteral stent was removed and serial ultrasound showed no evidence of recurrent hydronephrosis. At that point her LEFT ureteral stent was removed and within a week she was developing increasing fullness in her left flank and marked hydroureteronephrosis on ultrasound. For that reason she is being admitted for left ureteral stent placement but also bilateral retrograde ureteropyelogram's to assess the level and degree of obstruction left but also confirm the status of the right is being adequate without stenting. Procedure: After routine preoperative evaluation examination and obtaining of informed consent she was taken to the operating suite on 04/13/2020 where general anesthesia was administered without difficulty after appropriate timeout was performed, SCDs confirmed to be functioning, preoperative antibiotics administered, beta-valentina protocol confirmed. Prepped and draped in usual sterile fashion in dorsolithotomy position paying careful attention to avoiding pressure points. 21 Jordanian cystoscope with 30 degree lens was introduced into the urethra meatus and advanced into the bladder to videoscopy. Bladder was systematically examined and found to be within normal limits. An eight Jordanian cone-tip catheter was intubated into the RIGHT ureteral orifice for right retrograde ureteropyelogram:. Similar procedure was performed on the LEFT side: Flexible tip guidewire was advanced up the left ureter bypassing the area of obstruction and a 7 Jordanian by 24 cm double-pigtail stent was advanced over the guidewire through the cystoscope into appropriate position as confirmed via fluoroscopy and cystoscopy. The bladder was drained and the procedure was completed. She tolerated the procedure well without complications and was awakened in the operating room and returned to the care of room in stable condition.
--- NOTE | 2020-04-13 06:42 | ANES.PREANE2 ---
Pre-Anesthetic Assessment Pre-Anesthetic Assessment: Height/Weight: Height 1.52 m Weight 74.843 kg Temp Pulse Resp BP Pulse Ox 97.3 F L 81 18 126/75 97 04/13/20 05:56 04/13/20 05:56 04/13/20 05:56 04/13/20 05:56 04/13/20 05:56 Preop Diagnosis: Retroperitoneal fibrosis, left ureteral obstruction Proposed Procedure: Operation Date: 04/13/20 07:00 Proposed Procedures p bilateral Cystoscopy [id number] n13.30 z96.0(Bilateral) - MD vee Emmanuel Retrograde Pyelogram(Bilateral) - MD vee Emmanuel Ureteral Stent Placement(Not Applicable) - Nuno Vergara MD Was Beta Rebecca taken within 24 hours: N/A Last intake: Intake Last Liquid Date 04/12/20 Last Solid Date 04/12/20 Social: Social History: No alcohol and No tobacco Exam: Pre-Anes Outpt Exam: alert, oriented x 3, clear to auscultation bilaterally and regular rate & rhythm Airway: Submandibular: WNL Cervical ROM: WNL MP: 2 Dentition: Full Pulmonary: Pulmonary: None reported CV/HEM: CV/HEM: HTN GI: GI: GERD Metabolic: Metabolic: Morbid obesity Anesthetic Plan: ASA status: 3 Anesthesia: General Risk of > 500 ml blood loss (7ml/kg in children): No PFSH Anesthesia PFSH: Medical History Cervical cancer Hydronephrosis Macular degeneration Surgical History H/O bilateral oophorectomy History of appendectomy History of partial hysterectomy Ureteral stent retained Family History Mother CAD (coronary artery disease) Cancer Lung cancer and uterine cancer Father CAD (coronary artery disease) Other Hypertension Denies family history of Lupus (systemic lupus erythematosus) Rheumatoid arthritis Diabetes Chronic kidney disease (CKD) Stroke Social History Smoking and tobacco status: current every day smoker Alcohol intake: never Lives independently: Yes Household members: spouse Marital status: History of recent travel: No Data Anesthesia CBC & Chem 7: 04/13/20 06:05 04/13/20 06:05 Cardiac Studies: No Data to Display
[2020-04-13 06:44] LABS: Anion Gap 15.1 (5-19); Blood Urea Nitrogen 13 mg/dL (8-23); Calcium 9.4 mg/dL (8.5-10.5); Carbon Dioxide 23 mmol/L (22-29); Chloride 106 mmol/L (98-107); Glomerular Filtration Rate 84.8 mL/min (90-130); Glucose 134 mg/dL (65-115); Osmolality Calculated 292 mOsm/kg (285-295); Potassium 4.1 mmol/L (3.5-5.1); Sodium 140 mmol/L (136-145)
[2020-04-13] MEDS: sodium chloride 0.9% 1,000 ML 30 ML IV (06:56)
[2020-04-13] MEDS: levofloxacin-dextrose 5 % 500 MG/100 ML PREMIX 100 MG IV (07:00)
[2020-04-13] MEDS: iohexol 300 mg/mL 50 mL Btl XX (07:22)
--- NOTE | 2020-04-13 07:46 | P.PCN_ITS ---
PACU note PACU note: VSS, Good respiratory effort, report to UNEMPLOYMENT EXAMINER Post-Anesthesia Exam: awake
--- NOTE | 2020-04-13 07:46 | PM.PACU ---
PACU note PACU note: VSS, Good respiratory effort, report to BUILDING CLEANING SUPERVISOR Post-Anesthesia Exam: awake
--- NOTE | 2020-04-13 07:52 | ANE.PACU2 ---
Inpatient post-anesthesia follow up: Airway intact: Yes Vital signs: Temperature 97.8 F Pulse Rate 84 Respiratory Rate 20 Blood Pressure 119/70 Pulse Oximetry 95 Oxygen Delivery Me thod Simple Mask Oxygen Flow Rate 8 Fraction of Inspir ed Oxygen Hydration adequate: Yes Nausea and vomiting: No Pain level: 1 Mental status: Baseline
[2020-04-13] MEDS: HYDROcodone-acetaminophen 7.5-325 mg Tablet 1 TAB PO (09:29)
== END 2020-04-13 08:45 | disposition home or self-care (01) ==
PROVIDERS: PCP Family Medicine; Visit Provider Urology
PROC: 0TJB8ZZ Inspection of Bladder, Via Natural or Artificial Opening Endoscopic (ICD-10-PCS; CPT 52000; principal; 2020-04-13 07:00)
PROC: (CPT 74420; 2020-04-13 07:00)
PROC: (CPT 50605; 2020-04-13 07:00)
DX: N13.5 Crossing vessel and stricture of ureter without hydronephrosis (principal); Z85.41 Personal history of malignant neoplasm of cervix uteri; F17.210 Nicotine dependence, cigarettes, uncomplicated
CPT/HCPCS: 52332; 52351; 12345; 36415; 76000; 80048; C1725; C2625; J1100; J1956; J2405; J2704; J3010; J3490; J7030; Q9967

== ENCOUNTER → 2020-05-05 14:28 | Outpatient (BNVA) | payer OTHER, SELFPAY | PROVIDERS: PCP Family Medicine; Visit Provider Nurse Practitioner Family | DX: N30.20 Other chronic cystitis without hematuria (principal); N39.9 Disorder of urinary system, unspecified | CPT/HCPCS: 87077; 87086; 87184 ==

== ENCOUNTER 2020-05-08 06:59 | Outpatient (CLI) | payer OTHER, SELFPAY ==
--- NOTE | 2020-05-08 07:15 | US_ITS ---
WS: [id number] ULTRASOUND RENAL TECHNIQUE: Ultrasound examination of both kidneys. CLINICAL INFORMATION: HYDRONEPHROSIS COMPARISON: April 11, 2020 FINDINGS: RIGHT: Right kidney is normal in size and appearance. Echogenicity: Normal. Cortical thickness: 1.7 cm; Normal. Hydronephrosis: None. Perinephric fluid: None. Right kidney measures: 11.8 cm x 5.7 cm x 5.0 cm. LEFT: Left renal stent. Mild hydronephrosis. Left kidney is normal in size and appearance. Echogenicity: Normal. Cortical thickness: 1.6 cm; Normal. Hydronephrosis: Mild Perinephric fluid: None. Left kidney measures: 10.2 cm x 6.0 cm x 6.5 cm. Normal visualized aorta. US/US renal BI* [id number] IMPRESSION: 1. Bilateral ureteral jets visualized. 2. Left ureteral stent with mild hydronephrosis improved from previous.
== END 2020-05-08 07:00 | disposition home or self-care (01) ==
LOC: RAD 07:03
PROVIDERS: PCP Family Medicine; Visit Provider Nurse Practitioner Family
DX: N13.30 Unspecified hydronephrosis (principal); Z96.0 Presence of urogenital implants
CPT/HCPCS: 76770; 81003

== ENCOUNTER → 2020-05-15 15:03 | Outpatient (BNVA) | payer OTHER, SELFPAY | PROVIDERS: PCP Family Medicine; Visit Provider Urology | DX: Z01.812 Encounter for preprocedural laboratory examination (principal) | CPT/HCPCS: 87635 ==

== ENCOUNTER → 2020-06-09 09:17 | Outpatient (BNVA) | payer OTHER, SELFPAY | PROVIDERS: PCP Family Medicine; Visit Provider Urology | DX: N30.20 Other chronic cystitis without hematuria (principal); N13.30 Unspecified hydronephrosis; N13.5 Crossing vessel and stricture of ureter without hydronephrosis | CPT/HCPCS: 81003 ==

== ENCOUNTER → 2020-06-23 10:06 | Outpatient (BNVA) | payer OTHER, SELFPAY | PROVIDERS: PCP Family Medicine; Visit Provider Urology | DX: N30.20 Other chronic cystitis without hematuria (principal); N13.5 Crossing vessel and stricture of ureter without hydronephrosis; Z96.0 Presence of urogenital implants | CPT/HCPCS: 81003 ==

== ENCOUNTER 2020-10-13 08:27 | Outpatient (CLI) | payer OTHER, SELFPAY ==
--- NOTE | 2020-10-13 08:34 | NMR_ITS ---
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 HX of cervical cancer; Additional info: Dose-- 12.9 mci tc99m dtpa @ 0905; 20 MG lasix @ 10 minutes TECHNIQUE: Imaging protocol: Kidney imaging morphology with angiographic images were obtained after diuretic or GURPREET inhibitor was administered and additional planar images were obtained. after radiopharmaceutical administration. This radiotracer utilized for calculation of the GFR. Radiopharmaceutical: Tc99m DTPA. COMPARISON: CT Abdomen/Pelvis Renal [id number] 08/16/2020 3:13 PM FINDINGS: Medications: The Lasix renogram was performed using 20 mg of Lasix at 10 minutes Kidneys: The flow study shows symmetrical bilateral flow to the kidneys. The left kidney is asymmetrically smaller than the right consistent with renal atrophy. Left renal function: Left 21 78 % at 2 to 3 minutes. Right renal function: Right % at 2 to 3 minutes. Left renal GFR: Left calculated GFR (ml/min) is 29.33. Right renal GFR: Right calculated GFR (ml/min) is 109.51. Post Lasix Left Kidney: Left T1/2 is 102 minutes after Lasix. Post Lasix Right kidney: Right T1/2 is 11 minutes after Lasix. Other findings: The examination shows satisfactory uptake in right kidney with initial plateau of the renogram curve but fairly immediate washout after Lasix. Examination of the left kidney shows initial plateau of the renogram curve but there is washout of isotope after administration of Lasix. PA/PA renal flow w pharm [id number] IMPRESSION: 1. There is left renal atrophy and asymmetrically decreased function of the left kidney. 2. Bilateral nonobstructive hydronephrosis.
== END 2020-10-13 08:28 | disposition home or self-care (01) ==
PROVIDERS: PCP Family Medicine; Visit Provider Urology
DX: N13.5 Crossing vessel and stricture of ureter without hydronephrosis (principal); N26.1 Atrophy of kidney (terminal); N13.30 Unspecified hydronephrosis
CPT/HCPCS: 78708; A9539; J1940

== ENCOUNTER 2020-10-20 07:48 | Outpatient (CLI) | payer OTHER, SELFPAY ==
[2020-10-20 09:09] LABS: Alanine Aminotransferase 18 U/L (0-33); Albumin Level 4.3 g/dL (3.5-5.2); Alkaline Phosphatase 167 IU/L (35-105); Anion Gap 14.2 (5-19); Aspartate Amino Transferase 18 U/L (0-32); Blood Urea Nitrogen 12 mg/dL (8-23); Calcium 9.6 mg/dL (8.5-10.5); Carbon Dioxide 26 mmol/L (22-29); Chloride 105 mmol/L (98-107); Globulin 2.6 g/dL (1.3-4.6); Glomerular Filtration Rate 63.4 mL/min (90-130); Glucose 100 mg/dL (65-115); Osmolality Calculated 292 mOsm/kg (285-295); Potassium 4.2 mmol/L (3.5-5.1); Sodium 141 mmol/L (136-145); Total Bilirubin 0.4 mg/dL (0.15-1.2); Total Protein 6.9 g/dL (6.6-8.7)
== END 2020-10-20 07:49 | disposition home or self-care (01) ==
PROVIDERS: PCP Family Medicine; Visit Provider Urology
DX: N13.5 Crossing vessel and stricture of ureter without hydronephrosis (principal)
CPT/HCPCS: 80053

== ENCOUNTER 2021-10-23 10:10 | Outpatient (CLI) | payer SELFPAY ==
--- NOTE | 2021-10-23 10:17 | US_ITS ---
WS: [id number] RENAL ULTRASOUND HISTORY: Hydronephrosis COMPARISON: None available. TECHNIQUE: 2-D and color Doppler imaging of the kidney submitted. Right kidney: 11.2 cm x 5.7 cm x 6.2 cm. Normal size kidney. Minimal splitting of the renal pelvis. Mild hydronephrosis. No solid mass. Left kidney: 8.3 cm x 3.7 cm x 4.2 cm. Atrophy LEFT kidney. Moderate hydronephrosis. Proximal ureters are mildly dilated. Slightly greater h ydronephrosis on the LEFT. Aorta: Normal. Urinary Bladder: Normal distention. US/US renal BI* [id number] IMPRESSION: 1. Multiple moderate LEFT hydronephrosis. 2. Mild RIGHT hydronephrosis. 3. Similar appearance to the prior study of 05/08/2020. Mild persistent chronic hydronephrosis.
== END 2021-10-23 10:11 | disposition home or self-care (01) ==
LOC: RAD 10:11
PROVIDERS: PCP Family Medicine; Visit Provider Urology
DX: N13.30 Unspecified hydronephrosis (principal)
CPT/HCPCS: 76770; 81003

== ENCOUNTER 2023-08-22 11:09 | Outpatient (CLI) | payer MEDICARE, SELFPAY ==
--- NOTE | 2023-08-22 11:24 | MM_ITS ---
WS: [id number] Bilateral screening 3D tomosynthesis digital mammogram, 08/22/2023 Clinical Data: SCREENING Comparison: 03/22/2020, 11/08/2005. Findings: The breast parenchymal pattern shows fat replacement. No spiculated masses or clustered calcification s are seen. There are no secondary signs of carcinoma. MM/[place] [id number] Impression: 1. Negative bilateral mammogram unchanged. 2. Recommend annual screening mammograms. BIRADS: 1-Negative FOLLOW UP: 1 Year Follow-up The CAD frickertron checker was used.
== END 2023-08-22 11:10 | disposition home or self-care (01) ==
PROVIDERS: PCP Family Medicine; Visit Provider Family Medicine
DX: Z12.31 Encounter for screening mammogram for malignant neoplasm of breast (principal)
CPT/HCPCS: 77063; 77067

== ENCOUNTER 2024-05-04 11:31 | Emergency (ER) | payer MEDICARE, SELFPAY ==
[2024-05-04 11:51] VITALS: BP 138/82; PULSE 96; RESP 20; TEMP 36.7; O2SAT 97
--- NOTE | 2024-05-04 12:04 | XRR_ITS ---
PROCEDURE INFORMATION: Exam: XR Right Elbow Exam date and time: 05/04/2024 12:10 PM Age: 68 years old Clinical indication: Injury or trauma; Fall; Blunt trauma (contusions or hematomas); Elbow; Right TECHNIQUE: Imaging protocol: Radiologic exam of the right elbow. Views: 3 or more views. COMPARISON: No relevant prior studies available. FINDINGS: Bones/joints: Normal. No fracture or dislocation. No acute osseous or joint abnormality. Soft tissues: Normal. XR/XR elbow RT min 3V* [id number] IMPRESSION: No acute findings.
--- NOTE | 2024-05-04 12:04 | CT_ITS ---
WS: [id number] CT CERVICAL SPINE HISTORY: fall TECHNIQUE: Contiguous 2.0 mm axial imaging performed through the entire cervical spine. Sagittal and coronal reformats also performed. All CT scans at [facility] use at least one of these dose o ptimization techniques: automated exposure control; mA and/or kV adjustment per patient size (include s targeted exams where dose is matched to clinical indication); or iterative reconstruction. DLP: 1371.51 mGy.cm COMPARISON: None available. Normal cervical alignment. Craniocervical junction, atlantodental interval and C1-C2 alignment is nor mal. C2-C3: Normal. C3-C4: Normal. C4-C5: Normal. C5-C6: Mild osteophytic ridging and facet arthritis. C6-C7: Normal. C7-T1: Normal. Cerumen in the external auditory canals. Lung apices are clear. CT/CT cervical spin wo con* [id number] IMPRESSION: No acute cervical spine fracture.
--- NOTE | 2024-05-04 12:04 | CT_ITS ---
WS: [id number] CT HEAD NONCONTRAST HISTORY: fall TECHNIQUE: Contiguous axial imaging performed through the brain. Bone and soft tissue windows. Sagitt al and coronal reformats reviewed. All CT scans at [facility] use at least one of these dose optimization techniques: automated exposure control; mA and/or kV adjustment per patient size (includ es targeted exams where dose is matched to clinical indication); or iterative reconstruction. DLP: 1371.51 mGy.cm COMPARISON: 04/09/2016 No acute intracranial hemorrhage, midline shift or mass effect. No atrophy or prior infarcts or herniation. Ventricles: Normal size with no hydrocephalus. No inferior displacement of the cerebellar tonsils. Paranasal sinuses: As visualized are clear. Mastoid air cells: Well pneumatized. Calvarium and scalp: No skull fracture. Soft tissue hematoma with laceration centered over the communication and outreach manager ior RIGHT parietal bone. No foreign body. CT/CT head wo con* [id number] IMPRESSION: 1. No acute intracranial hemorrhage or edema. 2. No prior infarct. 3. No skull fracture. 4. RIGHT parietal scalp laceration with small hematoma.
--- NOTE | 2024-05-04 12:10 | W.ED.HEATRA ---
HPI - Head Injury General: Chief complaint: Head Injury Stated complaint: fall hit back of head Time Seen by Provider: 05/04/24 11:37 Source: patient Mode of arrival: ambulatory Limitations: no limitations History of Present Illness: 68-year-old female who states that she is in the bathroom she had gone on the toilet and fell that she did hit her head on the ground does have a laceration posterior head she denies any loss conscious has a headache with some neck pain with right elbow pain. She denies any other injury she has been amatory since event Associated symptoms: Reports neck pain; Deny nausea or vomiting Related Data Home Medications Medication Instructions Recorded Confirmed dpxtfozt-nau-ywbuc acid 0.4 1 tab PO DAILY 07/19/19 10/23/21 mg-lycopene 300 mcg-lutein 250 mcg tablet ([facility] Adults 50 Plus) omeprazole magnesium 20 mg 20 mg PO DAILY 07/26/19 10/23/21 tablet,delayed release (Prilosec OTC) polyethylene glycol 3350 17 gram 17 gm PO DAILY PRN Constipation 09/16/19 10/23/21 oral powder packet (Miralax) acetaminophen 650 mg 650 - 1,300 mg PO Q8H PRN pain 12/22/19 10/23/21 tablet,extended release (Tylenol 8 Hour) ascorbic acid (vitamin C) 1,000 mg 1,000 mg PO BID 12/22/19 10/23/21 tablet (Vitamin C) cholecalciferol (vitamin D3) 10 10 mcg PO DAILY 04/13/20 10/23/21 mcg (400 unit) capsule (Vitamin D3) vit C 250 mg-vit E 90 mg-zinc 40 1 tab PO BID 04/13/20 10/23/21 mg-copper 1 [id number]-dumdsa capsule (PreserVision AREDS-2) oxybutynin chloride 5 mg 5 mg PO TID 06/23/20 10/23/21 tablet,extended release 24 hr (Ditropan XL) Previous Rx's Medication Instructions Recorded amlodipine 5 mg tablet 5 mg PO DAILY #30 tabs 07/21/19 ondansetron HCl 4 mg tablet 4 mg PO Q6H PRN nausea and 12/22/19 (Zofran) vomiting #14 tabs hydrocodone 5 mg-acetaminophen 325 1 tab PO Q6H PRN Renal colic 3 03/14/20 mg tablet ([place]) days #12 tabs amoxicillin 875 mg-potassium 1 tab PO BID #60 tabs 05/08/20 clavulanate 125 mg tablet Allergies Allergy/AdvReac Type Severity Reaction Status Date / Time No Known Allergies Allergy Verified 10/23/21 11:27 Review of Systems Const: Denies: fever(s), chills, body aches or change in appetite ENMT: Denies: throat pain or dental pain Card: Denies: chest pain Resp: Denies: dyspnea GI: Denies: abdominal pain, nausea, vomiting or diarrhea Musc: Reports: neck pain and extremity pain; Denies: back pain Skin/Breast: Denies: rash Neuro: Reports: headache(s) PFSH ED PFSH: Medical History Hydronephrosis Pyuria Cervical cancer Macular degeneration Surgical History Ureteral stent retained H/O bilateral oophorectomy History of partial hysterectomy History of appendectomy Family History Mother CAD (coronary artery disease) Cancer Lung cancer and uterine cancer Father CAD (coronary artery disease) Other Hypertension Denies family history of Lupus (systemic lupus erythematosus) Rheumatoid arthritis Diabetes Chronic kidney disease (CKD) Stroke Social History Smoking and tobacco/nicotine status: current every day tobacco/nicotine user Alcohol intake: never Substance/Drug Use: never Lives independently: Yes Household members: spouse Marital status: Physical Exam Const: COMMON NORMALS: no acute distress, patient oriented x3 and healthy appearing HENMT: COMMON NORMALS: normocephalic HEAD & SCALP: normocephalic OTHER: 3 cm post scalp laceration Eye: COMMON NORMALS: Equal, round and reactive pupils present and EOMs intact bilaterally PUPIL: Yes Equal, round and reactive pupils present Neck/C-Spine: OTHER: slight cspine tenderness Chest: COMMONS NORMALS: normal inspection of the chest and normal palpation of entire chest wall Resp: COMMON NORMALS: normal respiratory effort, No retractions, No use of accessory muscles and clear to auscultation bilaterally AUSCULTATION: clear to auscultation bilaterally Cardio: COMMON NORMALS: regular rate, regular rhythm and No murmurs present (Cardio) RATE: regular rate RHYTHM: regular rhythm Extremity: COMMON NORMALS: full ROM NARRATIVE EXTREMITY EXAM: Slight swelling tenderness to right elbow no obvious deformities distal pulses sensation intact Neuro: COMMON NORMALS: patient oriented x3, moves all extremities and no focal motor deficits Psych: COMMON NORMALS: mental status grossly normal, Normal thought process present and cooperative THOUGHT PROCESS: Normal thought process present Skin: COMMON NORMALS: no rashes or lesions noted and no wounds GENERAL SKIN EXAM: no rashes or lesions noted Procedures Laceration Laceration 1: Site: scalp Size (cm): 3 Description: linear Depth: simple, single layer Local Anesthetic: lidocaine 1% Amount of anesthesia used (mL): 6 Pre-repair: wound explored, irrigated extensively and deep structures intact Skin layer closed with: other (3 tara) Course Vital Signs: Vital signs: Vital Signs Temperature 98.1 F 05/04/24 11:51 Pulse Rate 96 05/04/24 11:51 Respiratory Rate 20 H 05/04/24 11:51 Blood Pressure 138/82 05/04/24 11:51 Pulse Oximetry 97 05/04/24 11:51 Oxygen Delivery Me thod Room Air 05/04/24 11:51 MDM - Head Injury Medcial Decision Making Patient presents here with head laceration from a fall. Head CT C-spine are negative did repair her laceration she is to have staple removal in 7 days patient's to return if worsening she understands agrees to plan Lab Data I reviewed the patient's lab results. Radiology Impressions Cervical Spine CT 05/04/24 12:04 IMPRESSION: No acute cervical spine fracture. Elbow X-Ray 05/04/24 12:04 IMPRESSION: No acute findings. Head CT 05/04/24 12:04 IMPRESSION: 1. No acute intracranial hemorrhage or edema. 2. No prior infarct. 3. No skull fracture. 4. RIGHT parietal scalp laceration with small hematoma. All radiology interpretation(s) finalized by discharge Discharge Plan Discharge Patient Disposition: Home Clinical Impression: Laceration of head Condition: Stable Prescriptions: No Action hydrocodone-acetaminophen [[place]] 5-325 mg tablet 1 tab PO Q6H PRN (Reason: Renal colic) 3 Days Qty: 12 0RF Patient Comments: patient reports she has approx 4 tablets left oxybutynin chloride [Ditropan XL] 5 mg tablet extended release 24hr 5 mg PO TID polyethylene glycol 3350 [Miralax] 17 gram powder in packet 17 gm PO DAILY PRN (Reason: Constipation) amoxicillin-pot clavulanate 875-125 mg tablet 1 tab PO BID Qty: 60 1RF omeprazole magnesium [Prilosec OTC] 20 mg Tablet,Delayed Release (Dr/Ec) 20 mg PO DAILY Vitamin D3 10 mcg (400 unit) Capsule 10 mcg PO DAILY PreserVision AREDS-2 [phone] il-wttw-lf-mg Capsule 1 tab PO BID Century Adults 50 Plus 0.4-300-250 mg-mcg-mcg Tablet 1 tab PO DAILY amlodipine 5 mg Tablet 5 mg PO DAILY Qty: 30 0RF ascorbic acid (vitamin C) [Vitamin C] 1,000 mg Tablet 1,000 mg PO BID Rx Instructions: take with each dose of methenamine acetaminophen [Tylenol 8 Hour] 650 mg tablet extended release 650 - 1,300 mg PO Q8H PRN (Reason: pain) ondansetron HCl [Zofran] 4 mg tablet 4 mg PO Q6H PRN (Reason: nausea and vomiting) Qty: 14 0RF Discharge Orders: Discharge ED (Routine); Ordered 05/04/24 Ordered By: Carmela Barreto Referrals: Gem Olivares MD [Primary Care Provider] - Discharge Diet: Advance as tolerated Discharge Activity: Resume usual activity Patient Instructions: Staple Care (ED), Head Laceration (ED) Activity Restrictions/Additional Instructions: Staple removal in 7 days Coding Level of Care Code ED Dehydrogenation Supervisor for Godwin Nuñez
[2024-05-04] MEDS: HYDROcodone-acetaminophen 5-325 mg Tablet 1 TAB PO (12:18)
[2024-05-04] MEDS: tetanus-dipt-pertussis 0.5 mL SDV IM (13:07)
[2024-05-04] MEDS: HYDROcodone-acetaminophen 5-325 mg Tablet 2 TAB PO (13:14)
[2024-05-04 13:15] VITALS: BP 125/58; PULSE 74; O2SAT 96
== END 2024-05-04 13:15 | disposition home or self-care (01) ==
PROVIDERS: Emergency Provider Emergency Medicine; PCP Family Medicine
DX: S01.91XA Laceration without foreign body of unspecified part of head, initial encounter (principal); Z72.0 Tobacco use; C53.9 Malignant neoplasm of cervix uteri, unspecified; W19.XXXA Unspecified fall, initial encounter
CPT/HCPCS: 70450; 72125; 73080; 90471; 90715; 99284

== ENCOUNTER 2024-09-01 12:37 | Outpatient (CLI) | payer MEDICARE, SELFPAY ==
--- NOTE | 2024-09-01 12:41 | MM_ITS ---
WS: [id number] BILATERAL 3D TOMOSYNTHESIS DIGITAL SCREENING MAMMOGRAPHY WITH CAD CLINICAL INFORMATION: SCREENING HISTORY: Screening mammogram. No current complaints. COMPARISON: 2023 TECHNIQUE: Bilateral CC and MLO views. FINDINGS: Scattered fibroglandular densities bilaterally. No suspicious focal mass, asymmetry, calcifications, or architectural distortion. No evidence of malignancy. Skin calcifications. MM/MM scr tomosynthesis [id number] IMPRESSION: DENSITY: There are scattered areas of fibroglandular density. BI-RADS: 2 - Benign. FOLLOW UP: 1 Year Follow-up Recommend return to annual screening mammography.
== END 2024-09-01 12:38 | disposition home or self-care (01) ==
LOC: RAD 12:40
PROVIDERS: PCP Family Medicine; Visit Provider Family Medicine
DX: Z12.31 Encounter for screening mammogram for malignant neoplasm of breast (principal); R92.323 Mammographic fibroglandular density, bilateral breasts; R92.1 Mammographic calcification found on diagnostic imaging of breast
CPT/HCPCS: 77063; 77067

== ENCOUNTER 2024-10-21 14:55 | Emergency (ER) | payer MEDICARE, SELFPAY ==
--- OUTSIDE RECORDS SUMMARY | 2003-04-13 19:00 | XMS_ITS | Continuity of Care Document ---
Author Name [facility] Address [address] [place] [address] Organization [facility] Care Team Providers Care Binding Bench Worker Name Role Phone [facility] Unavailable Unavailable Problems Problem Status Onset Date Problem Type Date of Resolution Comments Source Degenerative disorder of macula (disorder) Active Condition Hydronephrosis (disorder) Active Condition Malignant tumor of cervix (disorder) Active Condition Retroperitoneal fibrosis (disorder) Active Condition Hydronephrosis (disorder) Diagnosis Nicotine dependence (disorder) Diagnosis History of malignant neoplasm of cervix (situation) Diagnosis Essential hypertension (disorder) Diagnosis Hyperlipidemia (disorder) Diagnosis Age-related macular degeneration (disorder) Diagnosis Obesity (disorder) Diagnosis Obese class I (finding) Diagnosis Hydronephrosis with ureteral stricture, not elsewhere classified Active Diagnosis Encounters Location Location Details Encounter Type Encounter Number Reason For Visit Attending Provider ADM Date DC Date Status Source [facility] DIAGNOSTIC TEST [id number] BILAT URETERAL OBSTRUCTIO N Kashif Rosario [facility] [id number] 2 [place] F/U CT-U Kashif Rosario [facility] Procedures Procedure Code Date Perfomer Comments Source partial hysterectomy [facility] bilat oophorectomy U [facility] ureteral stent placement [facility] appendectomy [facility]
[2024-10-21 15:23] VITALS: BP 133/79; PULSE 76; RESP 18; TEMP 36.8; O2SAT 97; BMI 35.9
[2024-10-21 16:12] LABS: Add Urine Microscopic? YES
--- NOTE | 2024-10-21 16:33 | W.ED.ABDPA2 ---
Documented by User: Terrence Castillo DO 10/22/24 13:33 HPI - Abdominal Pain General: Chief Complaint: Abdominal Pain Stated Complaint: low back,abd pain, kidney pain Time Seen by Provider: 10/21/24 16:30 History of Present Illness: Associated Symptoms: Denies chills, dysuria and fever(s) Related Data Home Medications ?Medication ?Instructions ?Recorded ?Confirmed acetaminophen 500 mg tablet 500 mg PO Q6H PRN Pain 05/04/24 10/21/24 amlodipine 5 mg tablet 5 mg PO QPM 05/04/24 10/21/24 fluoxetine 40 mg capsule 40 mg PO QPM 05/04/24 10/21/24 rosuvastatin 20 mg tablet 20 mg PO QPM 05/04/24 10/21/24 Previous Rx's ?Medication ?Instructions ?Recorded cephalexin 500 mg tablet 500 mg PO Q8H 7 days #21 tabs 10/21/24 ciprofloxacin HCl 500 mg tablet 500 mg PO BID 10 days #20 tabs 10/22/24 (Cipro) Allergies Allergy/AdvReac Type Severity Reaction Status Date / Time No Known Allergies Allergy Verified 10/21/24 14:19 Review of Systems Const: Denies: fever(s) or chills Card: Denies: chest pain Resp: Denies: dyspnea GI: Denies: abdominal pain : Denies: dysuria, urinary frequency or urinary urgency Musc: Denies: neck pain or back pain Skin/Breast: Denies: rash PFSH ED PFSH: Medical History Hydronephrosis Pyuria Cervical cancer Macular degeneration Surgical History Ureteral stent retained H/O bilateral oophorectomy History of partial hysterectomy History of appendectomy Family History Mother CAD (coronary artery disease) Cancer Lung cancer and uterine cancer Father CAD (coronary artery disease) Other Hypertension Denies family history of Lupus (systemic lupus erythematosus) Rheumatoid arthritis Diabetes Chronic kidney disease (CKD) Stroke Social History Smoking and tobacco/nicotine status: never used tobacco/nicotine Alcohol intake: never Substance/Drug Use: never Lives independently: Yes Household members: spouse Marital status: Physical Exam Const: GENERAL APPEARANCE: cooperative ORIENTATION/CONSCIOUSNESS: Yes awake, Yes oriented to person, Yes oriented to place and Yes oriented to time HENMT: COMMON NORMALS: normocephalic, atraumatic and hearing grossly normal bilaterally HEAD & SCALP: normocephalic and atraumatic Resp: COMMON NORMALS: normal respiratory effort, No retractions, No use of accessory muscles and clear to auscultation bilaterally AUSCULTATION: clear to auscultation bilaterally Cardio: COMMON NORMALS: regular rate, regular rhythm and No murmurs present (Cardio) RATE: regular rate RHYTHM: regular rhythm GI: COMMON NORMALS: Soft to palpation and No hepatosplenomegaly present AUSCULTATION: Yes normoactive bowel sounds PALPATION: Yes Soft to palpation, No Tenderness to palpation present (GI), No Guarding due to palpation present (GI) and Yes No hepatosplenomegaly present Extremity: COMMON NORMALS: normal to inspection, capillary refill normal, no clubbing, cyanosis or edema, no calf tenderness and no pedal edema Neuro: SENSORIUM/ORIENTATION: Yes oriented to person, Yes oriented to place and Yes oriented to time Skin: COMMON NORMALS: no rashes or lesions noted GENERAL SKIN EXAM: no rashes or lesions noted Course Vital Signs: Vital signs: Vital Signs Temperature 98.3 F 10/21/24 15:23 Pulse Rate 78 10/21/24 20:16 Respiratory Rate 18 10/21/24 20:16 Blood Pressure 135/57 10/21/24 20:16 Pulse Oximetry 98 10/21/24 20:16 Oxygen Delivery Me thod Room Air 10/21/24 18:30 MDM - Abdominal Pain Medical Decision Making Care signed out to Dr. Bush at change of shift. See final notes for diagnosis and disposition. 1. Suspected Urinary Tract Infection with possible pyelonephritis - Clinical presentation highly concerning for UTI with possible progression to pyelonephritis given bilateral flank pain, urinary symptoms, and history - Will obtain urinalysis and urine culture to confirm diagnosis - Initiating empiric antibiotic therapy appropriate for complicated UTI given patient's history - Consider IV antibiotics given patient's history of severe infection requiring hospitalization - Monitor for signs of sepsis given previous history of severe infection 2. 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 Bilateral leg pain of unclear etiology - New complaint of severe leg pain for 3 weeks, waking patient at night - Consider possible etiologies including neuropathy, vascular insufficiency, or referred pain - Will obtain basic labs including CBC, CMP, and inflammatory markers - Consider lower extremity Doppler ultrasound to rule out DVT given immobility and inflammatory condition 4. Disposition planning: - Given history of rapid deterioration with similar presentation, admission for IV antibiotics and close monitoring is warranted - Will coordinate with nephrology for input on management given complex renal history - Patient education regarding importance of seeking medical attention promptly with similar symptoms in the future Medical Records I reviewed the patient's medical records. Lab Data I reviewed the patient's lab results. 10/21/24 16:17 10/21/24 16:17 Labs/Radiology: Radiology Impressions Abdomen/Pelvis CT 10/21/24 16:44 IMPRESSION: 1. Cholelithiasis without evidence of acute cholecystitis. 2. Chronic moderate left hydronephrosis and hydroureter possibly related to a stricture involving the mid ureter. The left kidney is atrophic. 3. Periumbilical and left of midline ventral hernias containing loops of small bowel without signs of obstruction. 4. Additional chronic findings as detailed. Laboratory Results WBC 16.16 10^3/uL (3.29-11.43) H 10/21/24 16:17 RBC 4.91 10^6/uL (3.85-5.65) 10/21/24 16:17 Hgb 13.80 g/dL (11.27-16.99) 10/21/24 16:17 Hct 43.8 % (36-47) 10/21/24 16:17 MCV 89.2 fl (85-98) 10/21/24 16:17 MCH 28.1 pg (27-33) 10/21/24 16:17 MCHC 31.5 g/dL (30-55) 10/21/24 16:17 RDW 12.7 % (12.1-15.1) 10/21/24 16:17 Plt Count 305 10^3/cmm (157-399) 10/21/24 16:17 MPV 10.7 fL (7.4-10.4) H 10/21/24 16:17 Neut % (Auto) 70.3 % 10/21/24 16:17 Lymph % (Auto) 19.6 % 10/21/24 16:17 Hardin % (Auto) 9.2 % 10/21/24 16:17 Eos % (Auto) 0.2 % 10/21/24 16:17 Baso % (Auto) 0.3 % 10/21/24 16:17 Neut # (Auto) 11.36 10^3/uL (1.8-7.7) H 10/21/24 16:17 Lymph # (Auto) 3.2 10^3/uL (0.8-4.8) 10/21/24 16:17 Hardin # (Auto) 1.5 10^3/uL (0.2-0.9) H 10/21/24 16:17 Eos # (Auto) 0.0 10^3/uL (0.0-0.8) 10/21/24 16:17 Baso # (Auto) 0.1 10^3/uL (0.0-0.1) 10/21/24 16:17 Nucleated RBC % (auto) 0 % 10/21/24 16:17 Nucleated RBCs # 0.0 /100WBC 10/21/24 16:17 Sodium 141 mmol/L (136-145) 10/21/24 16:17 Potassium 3.8 mmol/L (3.5-5.1) 10/21/24 16:17 Chloride 104 mmol/L (98-107) 10/21/24 16:17 Carbon Dioxide 20 mmol/L (22-29) L 10/21/24 16:17 Anion Gap 20.8 (5-19) H 10/21/24 16:17 BUN 21 mg/dL (8-23) 10/21/24 16:17 Creatinine 0.8 mg/dL (0.5-0.9) 10/21/24 16:17 GFR Calculation 71.8 mL/min (90-130) L 10/21/24 16:17 Glucose 103 mg/dL (65-115) 10/21/24 16:17 Calculated Osmolality 295 mOsm/kg (285-295) 10/21/24 16:17 Lactic Acid 1.9 mmol/L (0.5-2.2) 10/21/24 16:17 Calcium 9.0 mg/dL (8.5-10.5) 10/21/24 16:17 Total Bilirubin 1.1 mg/dL (0.15-1.2) 10/21/24 16:17 AST 18 U/L (0-32) 10/21/24 16:17 ALT 14 U/L (0-33) 10/21/24 16:17 Alkaline Phosphatase 113 U/L (35-105) H 10/21/24 16:17 C-Reactive Protein 119.9 mg/L (0.0-4.9) H 10/21/24 16:17 Total Protein 7.4 g/dL (6.6-8.7) 10/21/24 16:17 Albumin 4.2 g/dL (3.5-5.2) 10/21/24 16:17 Globulin 3.2 g/dL (1.3-4.6) 10/21/24 16:17 Urine Color Dark yellow (Yellow) A 10/21/24 15:52 Urine Appearance Cloudy (CLEAR) A 10/21/24 15:52 Urine pH (5-7) 10/21/24 15:52 Ur Specific H[place]and Not Reportable 10/21/24 15:52 Urine Protein Not Reportable 10/21/24 15:52 Urine Glucose (UA) Not Reportable 10/21/24 15:52 Urine Ketones Not Reportable 10/21/24 15:52 Urine Blood Not Reportable 10/21/24 15:52 Urine Nitrate Not Reportable 10/21/24 15:52 Urine Bilirubin Not Reportable 10/21/24 15:52 Urine Urobilinogen Not Reportable 10/21/24 15:52 Ur Leukocyte Esterase Not Reportable 10/21/24 15:52 Urine RBC 15-25 /hpf (0-2) H 10/21/24 15:52 Urine WBC 40-55 /hpf (0-5) H 10/21/24 15:52 Ur Squamous Epith Cells 5-10 /hpf (0-5) H 10/21/24 15:52 Amorphous Sediment Not Reportable 10/21/24 15:52 Urine Bacteria 2+ /hpf (NONE) H 10/21/24 15:52 Urine Mucus Trace /hpf 10/21/24 15:52 Discharge Plan Discharge Patient Disposition: Home Clinical Impression: Hydronephrosis Condition: Stable Prescriptions: New cephalexin 500 mg tablet 500 mg PO Q8H 7 Days Qty: 21 0RF No Action ciprofloxacin HCl [Cipro] 500 mg tablet 500 mg PO BID 10 Days Qty: 20 0RF fluoxetine 40 mg capsule 40 mg PO QPM acetaminophen 500 mg Tablet 500 mg PO Q6H PRN (Reason: Pain) rosuvastatin 20 mg tablet 20 mg PO QPM amlodipine 5 mg tablet 5 mg PO QPM Discharge Orders: Discharge ED (Routine); Ordered 10/21/24 Ordered By: Ismael Bush Referrals: Gem Olivares MD [Primary Care Provider, Family Practice] Discharge Diet: Advance as tolerated Discharge Activity: Resume usual activity Patient Instructions: Opioid Safety, Pain Management, Patient Portal & [place] Instructions Activity Restrictions/Additional Instructions: 1. Rest, fluids and take Rx as directed. 2. Follow-up with primary care in 2 to 3 days. Needs to follow-up on urine culture results. 3. Return here if worse or new or different worrisome symptoms develop. Print Language: Wallisian Coding Level of Care Code ED Dependency Program Director for Chg Fwd Documented by User: Ismael Bush DO 10/21/24 19:56 HPI - Abdominal Pain General: Chief Complaint: Abdominal Pain Stated Complaint: low back,abd pain, kidney pain Time Seen by Provider: 10/21/24 16:30 History of Present Illness: Patient is a female with history of retroperitoneal fibrosis who presents with complaints of bilateral flank pain, urinary symptoms consistent with UTI, and leg pain. Patient reports noticing 'light blackish tint' in her urine this morning. She endorses bilateral flank pain, worse on the left side, which she states is her 'bad kidney' based on previous imaging. Patient also reports nausea and leg pain that has been present for approximately 3 weeks, severe enough to wake her at night. She endorses burning with urination, suggesting a urinary tract infection. Per patient and , she has a significant history of retroperitoneal fibrosis diagnosed in 2019, which required surgical intervention at [facility] where her ureters were relocated. Prior to this surgery, she had stents placed by a local retail gift card merchandising. Patient had a similar presentation in July 2019 that progressed to severe infection requiring hospitalization for approximately 7 days in [place] under infectious disease care, with temperatures reaching 104.3?F. During that hospitalization, elevated tumor markers initially raised concerns for kidney cancer, but markers subsequently normalized unexpectedly. Patient underwent extensive workup including PET scan which was negative for malignancy. Patient states she is 'ready to go home' but acknowledges continued pain. expresses concern that this presentation is similar to her previous severe infection and notes patient tends to delay seeking medical attention. Related Data Home Medications ?Medication ?Instructions ?Recorded ?Confirmed acetaminophen 500 mg tablet 500 mg PO Q6H PRN Pain 05/04/24 10/21/24 amlodipine 5 mg tablet 5 mg PO QPM 05/04/24 10/21/24 fluoxetine 40 mg capsule 40 mg PO QPM 05/04/24 10/21/24 rosuvastatin 20 mg tablet 20 mg PO QPM 05/04/24 10/21/24 Previous Rx's ?Medication ?Instructions ?Recorded cephalexin 500 mg tablet 500 mg PO Q8H 7 days #21 tabs 10/21/24 ciprofloxacin HCl 500 mg tablet 500 mg PO BID 10 days #20 tabs 10/22/24 (Cipro) Allergies Allergy/AdvReac Type Severity Reaction Status Date / Time No Known Allergies Allergy Verified 10/21/24 14:19 [facility] ED PFSH: Medical History Hydronephrosis Pyuria Cervical cancer Macular degeneration Surgical History Ureteral stent retained H/O bilateral oophorectomy History of partial hysterectomy History of appendectomy Family History Mother CAD (coronary artery disease) Cancer Lung cancer and uterine cancer Father CAD (coronary artery disease) Other Hypertension Denies family history of Lupus (systemic lupus erythematosus) Rheumatoid arthritis Diabetes Chronic kidney disease (CKD) Stroke Social History Smoking and tobacco/nicotine status: never used tobacco/nicotine Alcohol intake: never Substance/Drug Use: never Lives independently: Yes Household members: spouse Marital status: Course Vital Signs: Vital signs: Vital Signs Temperature 98.3 F 10/21/24 15:23 Pulse Rate 78 10/21/24 20:16 Respiratory Rate 18 10/21/24 20:16 Blood Pressure 135/57 10/21/24 20:16 Pulse Oximetry 98 10/21/24 20:16 Oxygen Delivery Me thod Room Air 10/21/24 18:30 MDM - Abdominal Pain Medical Decision Making 1. Suspected Urinary Tract Infection with possible pyelonephritis - Clinical presentation highly concerning for UTI with possible progression to pyelonephritis given bilateral flank pain, urinary symptoms, and history - Will obtain urinalysis and urine culture to confirm diagnosis - Initiating empiric antibiotic therapy appropriate for complicated UTI given patient's history - Consider IV antibiotics given patient's history of severe infection requiring hospitalization - Monitor for signs of sepsis given previous history of severe infection 2. 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 Bilateral leg pain of unclear etiology - New complaint of severe leg pain for 3 weeks, waking patient at night - Consider possible etiologies including neuropathy, vascular insufficiency, or referred pain - Will obtain basic labs including CBC, CMP, and inflammatory markers - Consider lower extremity Doppler ultrasound to rule out DVT given immobility and inflammatory condition 4. Disposition planning: - Given history of rapid deterioration with similar presentation, admission for IV antibiotics and close monitoring is warranted - Will coordinate with nephrology for input on management given complex renal history - Patient education regarding importance of seeking medical attention promptly with similar symptoms in the future Medical Records I reviewed patient's records and course I verified her history she looks pretty well she does not look toxic or ill her vital signs are reasonable she is not febrile. Patient desires to go home without coming in the hospital or have any further workup and evaluation. I reviewed her CT scan which shows some concerns of the left-sided urinary tract system that were abnormal. Her urinalysis and history and physical are consistent with a UTI or impending pyelonephritis she is not really febrile she does have an elevated white count she already had ceftriaxone she desires to go home we will send a urine culture give her strict return precautions start her on antibiotics the patient and family are agreeable this is a reasonable course of action after mutual decision making. Lab Data 10/21/24 16:17 10/21/24 16:17 Labs/Radiology: Radiology Impressions Abdomen/Pelvis CT 10/21/24 16:44 IMPRESSION: 1. Cholelithiasis without evidence of acute cholecystitis. 2. Chronic moderate left hydronephrosis and hydroureter possibly related to a stricture involving the mid ureter. The left kidney is atrophic. 3. Periumbilical and left of midline ventral hernias containing loops of small bowel without signs of obstruction. 4. Additional chronic findings as detailed. Laboratory Results WBC 16.16 10^3/uL (3.29-11.43) H 10/21/24 16:17 RBC 4.91 10^6/uL (3.85-5.65) 10/21/24 16:17 Hgb 13.80 g/dL (11.27-16.99) 10/21/24 16:17 Hct 43.8 % (36-47) 10/21/24 16:17 MCV 89.2 fl (85-98) 10/21/24 16:17 MCH 28.1 pg (27-33) 10/21/24 16:17 MCHC 31.5 g/dL (30-55) 10/21/24 16:17 RDW 12.7 % (12.1-15.1) 10/21/24 16:17 Plt Count 305 10^3/cmm (157-399) 10/21/24 16:17 MPV 10.7 fL (7.4-10.4) H 10/21/24 16:17 Neut % (Auto) 70.3 % 10/21/24 16:17 Lymph % (Auto) 19.6 % 10/21/24 16:17 Hardin % (Auto) 9.2 % 10/21/24 16:17 Eos % (Auto) 0.2 % 10/21/24 16:17 Baso % (Auto) 0.3 % 10/21/24 16:17 Neut # (Auto) 11.36 10^3/uL (1.8-7.7) H 10/21/24 16:17 Lymph # (Auto) 3.2 10^3/uL (0.8-4.8) 10/21/24 16:17 Hardin # (Auto) 1.5 10^3/uL (0.2-0.9) H 10/21/24 16:17 Eos # (Auto) 0.0 10^3/uL (0.0-0.8) 10/21/24 16:17 Baso # (Auto) 0.1 10^3/uL (0.0-0.1) 10/21/24 16:17 Nucleated RBC % (auto) 0 % 10/21/24 16:17 Nucleated RBCs # 0.0 /100WBC 10/21/24 16:17 Sodium 141 mmol/L (136-145) 10/21/24 16:17 Potassium 3.8 mmol/L (3.5-5.1) 10/21/24 16:17 Chloride 104 mmol/L (98-107) 10/21/24 16:17 Carbon Dioxide 20 mmol/L (22-29) L 10/21/24 16:17 Anion Gap 20.8 (5-19) H 10/21/24 16:17 BUN 21 mg/dL (8-23) 10/21/24 16:17 Creatinine 0.8 mg/dL (0.5-0.9) 10/21/24 16:17 GFR Calculation 71.8 mL/min (90-130) L 10/21/24 16:17 Glucose 103 mg/dL (65-115) 10/21/24 16:17 Calculated Osmolality 295 mOsm/kg (285-295) 10/21/24 16:17 Lactic Acid 1.9 mmol/L (0.5-2.2) 10/21/24 16:17 Calcium 9.0 mg/dL (8.5-10.5) 10/21/24 16:17 Total Bilirubin 1.1 mg/dL (0.15-1.2) 10/21/24 16:17 AST 18 U/L (0-32) 10/21/24 16:17 ALT 14 U/L (0-33) 10/21/24 16:17 Alkaline Phosphatase 113 U/L (35-105) H 10/21/24 16:17 C-Reactive Protein 119.9 mg/L (0.0-4.9) H 10/21/24 16:17 Total Protein 7.4 g/dL (6.6-8.7) 10/21/24 16:17 Albumin 4.2 g/dL (3.5-5.2) 10/21/24 16:17 Globulin 3.2 g/dL (1.3-4.6) 10/21/24 16:17 Urine Color Dark yellow (Yellow) A 10/21/24 15:52 Urine Appearance Cloudy (CLEAR) A 10/21/24 15:52 Urine pH (5-7) 10/21/24 15:52 Ur Specific Hestand Not Reportable 10/21/24 15:52 Urine Protein Not Reportable 10/21/24 15:52 Urine Glucose (UA) Not Reportable 10/21/24 15:52 Urine Ketones Not Reportable 10/21/24 15:52 Urine Blood Not Reportable 10/21/24 15:52 Urine Nitrate Not Reportable 10/21/24 15:52 Urine Bilirubin Not Reportable 10/21/24 15:52 Urine Urobilinogen Not Reportable 10/21/24 15:52 Ur Leukocyte Esterase Not Reportable 10/21/24 15:52 Urine RBC 15-25 /hpf (0-2) H 10/21/24 15:52 Urine WBC 40-55 /hpf (0-5) H 10/21/24 15:52 Ur Squamous Epith Cells 5-10 /hpf (0-5) H 10/21/24 15:52 Amorphous Sediment Not Reportable 10/21/24 15:52 Urine Bacteria 2+ /hpf (NONE) H 10/21/24 15:52 Urine Mucus Trace /hpf 10/21/24 15:52 All radiology interpretation(s) finalized by discharge Discharge Plan Discharge Patient Disposition: Home Clinical Impression: Hydronephrosis Condition: Stable Prescriptions: New cephalexin 500 mg tablet 500 mg PO Q8H 7 Days Qty: 21 0RF No Action ciprofloxacin HCl [Cipro] 500 mg tablet 500 mg PO BID 10 Days Qty: 20 0RF fluoxetine 40 mg capsule 40 mg PO QPM acetaminophen 500 mg Tablet 500 mg PO Q6H PRN (Reason: Pain) rosuvastatin 20 mg tablet 20 mg PO QPM amlodipine 5 mg tablet 5 mg PO QPM Discharge Orders: Discharge ED (Routine); Ordered 10/21/24 Ordered By: Ismael Bush Referrals: Gem Olivares MD [Primary Care Provider, [facility]] Discharge Diet: Advance as tolerated Discharge Activity: Resume usual activity Patient Instructions: Opioid Safety, Pain Management, Patient Portal & [place] Instructions Activity Restrictions/Additional Instructions: 1. Rest, fluids and take Rx as directed. 2. Follow-up with primary care in 2 to 3 days. Needs to follow-up on urine culture results. 3. Return here if worse or new or different worrisome symptoms develop. Print Language: Wallisian Coding Level of Care Code ED Dependency Program Director for Godwin Nuñez
[2024-10-21 16:40] LABS: Hematocrit 43.8 % (36-47); Hemoglobin 13.80 g/dL (11.27-16.99); Mean Corpuscular HGB Conc 31.5 g/dL (30-55); Mean Corpuscular Hemoglobin 28.1 pg (27-33); Mean Corpuscular Volume 89.2 fl (85-98); Nucleated Red Blood Cells % 0 %; Platelet Count 305 10^3/cmm (157-399); Red Blood Count 4.91 10^6/uL (3.85-5.65); White Blood Count 16.16 10^3/uL (3.29-11.43)
--- NOTE | 2024-10-21 16:44 | CTR_ITS ---
PROCEDURE INFORMATION: Exam: CT Abdomen And Pelvis Without Contrast Exam date and time: 10/21/2024 5:39 PM Age: 68 years old Clinical indication: Abdominal pain; Flank; Right; Prior surgery; Surgery date: 6+ months; Surgery type: Appy, ureter, hysterectomy; Additional info: Flank pain TECHNIQUE: Imaging protocol: Computed tomography of the abdomen and pelvis without contrast. Radiation optimization: All CT scans at this facility use at least one of these dose optimization techniques: automated exposure control; mA and/or kV adjustment per patient size (includes targeted exams where dose is matched to clinical indication); or iterative reconstruction. COMPARISON: CT kidney stone [id number] 08/16/2020 3:13 PM RADIATION DOSE METRICS: Total DLP (mGy-cm): 753.33 FINDINGS: Lungs: There are minimal patchy ground-glass opacities in the right lung base which may be infectious or inflammatory in etiology. Diaphragm: There is a [id number] hiatal hernia. Liver: Normal. No mass. Gallbladder and biliary ducts: There are multiple gallstones. No gallbladder wall thickening or pericholecystic fluid. Pancreas: Normal. No ductal dilation. Spleen: Normal. No splenomegaly. Adrenal glands: Normal. No mass. Kidneys and ureters: There is chronic moderate left hydronephrosis and hydroureter possibly related to a mid ureteral stricture. No right-sided hydronephrosis. The left kidney is atrophic. Stomach and bowel: Scattered colon diverticula. No inflammatory change identified involving the GI tract. No signs of bowel obstruction. Appendix: No evidence of appendicitis. Intraperitoneal space: Unremarkable. No free air. No significant fluid collection. Vasculature: Scattered calcific plaque involves the aorta and iliac arteries. Lymph nodes: Unremarkable. No enlarged lymph nodes. Urinary bladder: Unremarkable as visualized. Reproductive: The uterus is surgically absent. Bones/joints: Mild degenerative changes involve the spine. The bone density is decreased. Soft tissues: There is a periumbilical hernia containing loops of small bowel without signs of obstruction. There is a left of midline ventral hernia containing loops of small bowel without signs of obstruction. The CT/CT kidney stone [id number] IMPRESSION: 1. Cholelithiasis without evidence of acute cholecystitis. 2. Chronic moderate left hydronephrosis and hydroureter possibly related to a stricture involving the mid ureter. The left kidney is atrophic. 3. Periumbilical and left of midline ventral hernias containing loops of small bowel without signs of obstruction. 4. Additional chronic findings as detailed.
[2024-10-21] MEDS: cefTRIAXone 1,000 mg SDV 1000 MG IVP (16:55)
[2024-10-21 17:00] VITALS: BP 144/62; PULSE 65; O2SAT 95
[2024-10-21 17:05] LABS: Alanine Aminotransferase 14 U/L (0-33); Albumin Level 4.2 g/dL (3.5-5.2); Alkaline Phosphatase 113 U/L (35-105); Anion Gap 20.8 (5-19); Aspartate Amino Transferase 18 U/L (0-32); Blood Urea Nitrogen 21 mg/dL (8-23); Calcium 9.0 mg/dL (8.5-10.5); Carbon Dioxide 20 mmol/L (22-29); Chloride 104 mmol/L (98-107); Creatinine Clr Calc Pharmacy 66.2682; Globulin 3.2 g/dL (1.3-4.6); Glucose 103 mg/dL (65-115); Osmolality Calculated 295 mOsm/kg (285-295); Potassium 3.8 mmol/L (3.5-5.1); Sodium 141 mmol/L (136-145); Total Protein 7.4 g/dL (6.6-8.7)
[2024-10-21 17:06] LABS: Lactic Sepsis W/Reflex 1.9 mmol/L (0.5-2.2)
[2024-10-21 18:30] VITALS: BP 136/69; PULSE 66; O2SAT 95
[2024-10-21 20:16] VITALS: BP 135/57; PULSE 78; RESP 18; O2SAT 98
[2024-10-22 15:08] LABS: Bacillus cereus group Not Detected (NOT DETECT); Bacillus subtillis group Not Detected (NOT DETECT); Corynebacterium Not Detected (NOT DETECT); Cutibacterium acnes (P.acnes) Not Detected (NOT DETECT); Enterococcus faecalis Not Detected (NOT DETECT); Enterococcus faecium Not Detected (NOT DETECT); Listeria Not Detected (NOT DETECT); Micrococcus Not Detected (NOT DETECT); Pan Candida Not Detected (NOT DETECT); Pan Gram-Negative Not Detected (NOT DETECT); Staphylococcus lugdunensis Not Detected (NOT DETECT); Streptococcus anginosus group Not Detected (NOT DETECT); Streptococcus pyogenes Not Detected (NOT DETECT); Streptococcus species Not Detected (NOT DETECT); mecA Not Detected (NOT DETECT); mecC Not Detected (NOT DETECT)
[2024-10-22 15:19] LABS: Staphylococcus epidermidis Detected (NOT DETECT); Staphylococcus species Detected (NOT DETECT)
== END 2024-10-21 20:17 | disposition home or self-care (01) ==
PROVIDERS: Emergency Medicine; Emergency Provider Family Medicine; PCP Family Medicine
DX: N13.30 Unspecified hydronephrosis (principal); Z85.41 Personal history of malignant neoplasm of cervix uteri
CPT/HCPCS: 36415; 74176; 80053; 81001; 83605; 85025; 86140; 87040; 87077; 87086; 87150; 87186; 87205; 96361; 96374; 99285; J0696; J7030

== ENCOUNTER 2025-03-14 09:27 | Outpatient (CLI) | payer MEDICARE, SELFPAY ==
[2025-03-14 09:42] VITALS: BMI 35.8
--- NOTE | 2025-03-14 09:44 | ECG_ITS ---
[facility] Test Date: 2025-03-14 Pat Name: Emily Bowden Department: Room: Gender: Female Merchandise Planner: : 1955 Requested By: eGm Adan Order Number: [id number] Kd MD: Vonnie Bonilla M.D. Interpretive Statements Lung unchanged pre/post procedure; Intraprocedure shortess of breath; Symptoms resoled by discharge PROCEDURE: At the baseline, the EKG revealed sinus bradycardia with a normal ST-T. The baseline heart was 54 bpm with a blood pressue of 139/70 mm of Hg Lexiscan was infused over a period of 20 seconds. A total of 0.4 milligrams of Lexiscan was infused. The stress phase was continued for a total of 5 minutes. Heart rate at the end of the stress phase was 76 bpm with a blood pressure 128/60 mm of Hg. The EKG at the peak infusion revealed no significant changes. Sestamibi was injected 20 seconds after the Lexiscan infusion. Heart rate at the end of the recovery phase was 74 bpm with a blood pressure of 116/67 mm of Hg. CONCLUSION: 1. No significant EKG changes with the LexiScan infusion 2. No LexiScan induced chest pain or cardiac arrhythmia 3. Normal blood pressure and heart rate response 4. Sestamibi/sestamibi perfusion scan pending; see separate report. Electronically Signed On 03-15-2025 09:26:37 RADIO DISPATCHER by Vonnie Bonilla M.D. [email or web address]
--- NOTE | 2025-03-14 09:44 | NMCV_ITS ---
NM yael perf SPECT r/s* [id number] Emily Bowden Age: 69 Gender: F : 1955 Exam Date: 03/14/2025 10:33 Ordering Phys: Gem Olivares MD Technologist: SRIRAM Sky Exam Location: [facility] Indications: cp STRESS TEST Please see separate stress test report in [facility] for full findings IMAGE PROTOCOL Rest/Stress 1 Lexiscan Day Radiopharmaceutical Dose (mCi) Administration Site Administered by Rest: Tc-99m 10.4 IV Chloe Barriga, OFFSET LITHOGRAPHIC PRESS OPERATOR Sestamibi Stress:Tc-99m 32.6 IV Chloe Pimentelgle, OFFSET LITHOGRAPHIC PRESS OPERATOR Sestamibi Rest: 14-Mar-2025 60 Discovery 630 Stress: 14-Mar-2025 30 Discovery 630 0.4mg Lexiscan. Images obtained in supine and prone position. SPECT RESULTS Technical Quality: Good Raw Data Analysis: Normal Image Corrections: No attenuation or motion correction applied Summed Stress Score: 6 Summed Rest Score: 5 Summed Difference Score: 2 PERFUSION FINDINGS Small to moderate area of moderately decrease tracer uptake involving the mid inferolateral, apical lateral and LV apex. Subtle areas of reversibility was noted in these regions, with the supine imaging. However with the prone imaging, no significant reversible defects were noted FUNCTIONAL RESULTS (calculated via Gated SPECT) Stress Image LV EF (%): 79 Stress EDV (mL):66 TID: 0.75 Stress ESV (mL):14 FUNCTIONAL FINDINGS: Segmental wall motion analysis revealing no gross wall motion abnormalities IMPRESSIONS 1. Myocardial perfusion imaging revealing a subtle area of reversibility in the inferolateral and apical region suggesting ischemia in the distribution of the left circumflex artery. However because of the inconsistency with the prone imaging, the lability is low. Clinical correlation is recommended 2. Normal LV ejection fraction of 79% . 3. LV wall motion analysis revealing no gross wall motion abnormalities. 4. Normal LV volume No similar previous studies are available for comparison Dr Vonnie Bonilla MD [facility] (Electronically Signed) Final Date: 14 March 2025 17:26 S
[2025-03-14 11:40] VITALS: BP 106/62; PULSE 58
== END 2025-03-14 09:28 | disposition home or self-care (01) ==
LOC: CDL 09:37
PROVIDERS: PCP Family Medicine; Visit Provider Family Medicine
DX: R07.9 Chest pain, unspecified (principal); R93.1 Abnormal findings on diagnostic imaging of heart and coronary circulation
CPT/HCPCS: 36415; 78452; 93017; 96374; A9500; J2785

== ENCOUNTER 2025-03-17 07:35 | Outpatient (CLI) | payer MEDICARE, SELFPAY ==
--- NOTE | 2025-03-17 07:48 | NMR_ITS ---
PROCEDURE INFORMATION: Exam: OR Kidney Imaging with Vascular Flow and Function, Single Study, with Pharmacological Intervention Exam date and time: 03/17/2025 7:46 AM Age: 69 years old Clinical indication: Condition or disease; Kidney or ureter condition; Other: Hydronephrosis left kidney, left flank pain; Prior surgery; Surgery date: 6+ months; Surgery type: Bilateral oophorectomy, appendectomy, hysterectomy, ureteral stent retained; Additional info: Hydronephrosis of left kidney TECHNIQUE: Imaging protocol: Kidney imaging morphology with angiographic images were obtained after diuretic or GURPREET inhibitor was administered and additional planar images were obtained. after radiopharmaceutical administration. This radiopharmaceutical utilized for calculation of the GFR. Radiopharmaceutical: 11.6 mCi TC99M DTPA. COMPARISON: OR renal flow w pharm [id number] 10/13/2020 8:34 AM FINDINGS: Medications: The Lasix renogram was performed using a 20 mg of Lasix at 10 minutes Kidneys: The radionuclide angiographic images show normal nephrograms although the left nephrogram demonstrates delayed activity. There is normal excretion into the renal collecting system. Left renal function: Left 21.07 % at 2 to 3 minutes. Right renal function: Right 78.93 % at 2 to 3 minutes. Left renal GFR: Left calculated GFR (ml/min) is 24.11. Right renal GFR: Right calculated GFR (ml/min) is 90.29. Post Lasix Left Kidney: Left T1/2 is 23.43 minutes after Lasix. Post Lasix Right kidney: Right T1/2 is 118.71 minutes after Lasix. NM/OR renal flow w pharm [id number] IMPRESSION: 1. Left kidney delayed perfusion and excretion with substantially diminished GFR of 24.11 mL/min. 2. Normal right renal function with GFR of 90.29 mL/min.
== END 2025-03-17 07:36 | disposition home or self-care (01) ==
LOC: RAD 07:42
PROVIDERS: PCP Family Medicine; Visit Provider Nurse Practitioner Family
DX: N13.30 Unspecified hydronephrosis (principal); R10.9 Unspecified abdominal pain; N26.1 Atrophy of kidney (terminal)
CPT/HCPCS: 78708; A9539